=== PATIENT | female | born 1970 | race Caucasian/White ===

== ENCOUNTER 2021-03-24 12:33 | Inpatient (IN) ==
[2021-03-24] MEDS ORDERED: SODIUM CHLORIDE 0.9% 1000ML 1,000 ML IV ONE ×2 (13:07→14:31)
[2021-03-24] MEDS ORDERED: ACETAMINOPHEN 500 MG TAB PO STA (13:07)
[2021-03-24] MEDS ORDERED: dexAMETHasone**PF** 10 MG/ML VIAL IV ONE (13:07)
[2021-03-24] MEDS ORDERED: KETOROLAC TROMETHAMINE 15 MG/ML VIAL IV ONE (13:21)
--- NOTE | 2021-03-24 13:25 | Emergency Department Note ---
Impression & Plan Respiratory failure, COVID-19, Hypoxia ED Provider Note NAME: FREDERICK HARRIS AGE: 50 SEX: F : 1970 ARRIVES VIA: Ambulance INFORMANT: Patient ED PROVIDER(S): Richie Aguilera DO CHIEF COMPLAINT: cough HPI: Patient is a 50-year-old female who presents the ER for multiple complaints. She is Covid positive and notes that her symptoms started about 4 to 5 days ago. She notes she has cough and congestion. She does feel like she lost her sense of taste and smell. She is not vaccinated. She admits to persistent chest pain and shortness of breath which has been present since this started. No belly pain but does have nausea and diarrhea. No vomiting. No dysuria, urgency, or frequency. She denies being a smoker. No other exacerbating or remitting factors other than she has felt dizzy with movement for the past 2 to 3 days. No focal weakness in the arms or legs. ROS: See above HPI for pertinent positives & negatives. A total of 10 systems reviewed and were otherwise negative. PAST MEDICAL HISTORY:See Below PAST SURGICAL HISTORY:See Below FAMILY HISTORY:See Below SOCIAL HISTORY:See Below HOME MEDICATIONS:See Below ALLERGIES:See Below VITALS:See Below PHYSICAL EXAMINATION: GENERAL: Sitting up in bed, alert, slightly ill-appearing, disheveled on nasal cannula EYE EXAM: normal conjunctiva. PERRL and EOM's grossly intact. OROPHARYNX: Mask in place NECK: supple, no nuchal rigidity, no adenopathy, non-tender LUNGS: Diminished bilaterally. Normal chest wall mechanics HEART: no murmurs, S1 normal and S2 normal ABDOMEN: abdomen soft, non-tender, normo-active bowel sounds, no masses, no rebound or guarding. UPPER EXTREMITIES: upper extremities are grossly normal. LOWER EXTREMITIES: No pitting edema. NEURO EXAM: Normal sensorium, cranial nerves II-XII intact, normal speech, no weakness of arms, no weakness of legs. MEDICAL DECISION MAKING: Patient is a 50-year-old female who presents the ER for cough, chest congestion chest pain shortness of breath. She is vaccinated against Covid. Vitals show that she is febrile tacky and hypoxic at 83% on room air. She was initially placed on nasal cannula and then switched to high flow. IV was established blood was obtained. Labs show no significant leukocytosis. Mild anemia 10. BMP with a hypokalemia of 3.1. Creatinine was up to 1.7. Potassium was repl eted and patient was given IV fluids. Patient was given insulin and sugars trended down to 276. Bilirubin LFTs was unremarkable. Troponin was negative. Covid positive. Chest x-ray with multifocal infiltrate. Patient was updated bedside. She was given steroids. She was admitted to the hospitalist with hypoxic Covid pneumonia on high flow nasal cannula. Triage Nursing notes reviewed. Limited review of prior medical records performed Vital Signs: reviewed and remarkable for hypoxic and tachycardic Differential diagnosis: Differential diagnoses includes but is not limited to pneumonia, bronchitis, COPD/Asthma exacerbation, pneumothorax, pulmonary embolism, congestive heart failure, acute coronary syndrome ER treatment provided: See below Diagnostics interpreted by me: ECG: Sinus rhythm rate 83 PVCs QTC 418 Normal axis Cardiac Monitoring: An order was placed for continuous cardiac monitoring. The monitor shows a rate of 82 with sinus rhythm. Laboratory studies: As stated above and show below. Imaging studies: Chest x-ray with multifocal pneumonia CT head was negative Consultation(s): Discussed with hospitalist for further evaluation Procedures: none Critical Care: I have personally spent 39 minutes of critical care time in the direct management of this patient. This includes bedside care, interpretation of diagnostic studies, and testing, discussion with consultants, patient, and [facility] members, and other required patient management activities. This 39 minutes is in excess of all separately billable procedures. Past Med/Surg History Medical History (Updated 03/24/21 @ 17:07 by Richie Aguilera DO) DMII (diabetes mellitus, type 2) HLD (hyperlipidemia) Seizure Social History (Updated 03/24/21 @ 16:24 by APPLE Corona) Smoking Status: Never smoker Hx Alcohol Use: No Hx Substance Use: No Preferred Language: Syrian Current Living Situation: Spouse current occupational status: employed current occupation: [employer] Allergies Allergies Allergy/AdvReac Type Severity Reaction Status Date / Time phenytoin [From Dilantin] Allergy Unknown Verified 03/24/21 14:38 Home Meds Home Medications Medication Instructions Recorded Confirmed diazepam 2 mg tablet 2 mg PO QID PRN 03/24/21 03/24/21 glimepiride 1 mg tablet 1 mg PO DAILY 03/24/21 03/24/21 metformin 1,000 mg tablet 1,000 mg PO BID 03/24/21 03/24/21 simvastatin 20 mg tablet 20 mg PO HS 03/24/21 03/24/21 valproic acid 250 mg capsule 500 mg PO BID 03/24/21 03/24/21 Results & Data (ED) Vital Signs Vital Signs - 24 hr 03/24/21 12:40 03/24/21 12:47 03/24/21 12:51 Temperature 38.8 C H Temperature Source Oral Pulse Rate 87 93 H Pulse Rate [Apical] Pulse Rate from SpO2 Sensor 71 Pulse Rhythm Regular Pulse Strength Normal Respiratory Rate 36 H 20 Respiratory Effort / Characteristics Non-Labored Respiratory Depth Normal Respiratory Pattern Regular Blood Pressure 128/69 128/69 Blood Pressure Mean 88 88 Blood Pressure Position Lying Pulse Oximetry 95 88 L 88 L Oxygen Delivery Method Room Air Room Air Oxygen Flow Rate Fraction of Inspired Oxygen Sepsis Recent Fever Within 48 Hours No Sepsis New/Unexplained Change in Mental Status N/A Sepsis Action Taken by Nursing No Action Required Oxygen Flow Rate - Titration 2 Pulse Oximetry Post Tiitration 94 03/24/21 13:00 03/24/21 13:30 03/24/21 14:00 Temperature Temperature Source Pulse Rate 88 88 Pulse Rate [Apical] Pulse Rate from SpO2 Sensor 87 85 Pulse Rhythm Pulse Strength Respiratory Rate 36 H 43 H Respiratory Effort / Characteristics Respiratory Depth Respiratory Pattern Blood Pressure 112/72 128/65 114/69 Blood Pressure Mean 85 86 84 Blood Pressure Position Pulse Oximetry 92 91 Oxygen Delivery Method Oxygen Flow Rate Fraction of Inspired Oxygen Sepsis Recent Fever Within 48 Hours Sepsis New/Unexplained Change in Mental Status Sepsis Action Taken by Nursing Oxygen Flow Rate - Titration Pulse Oximetry Post Tiitration 03/24/21 14:18 03/24/21 14:30 Temperature Temperature Source Pulse Rate 80 Pulse Rate [Apical] 85 Pulse Rate from SpO2 Sensor 80 Pulse Rhythm Pulse Strength Respiratory Rate 24 34 H Respiratory Effort / Characteristics Spontaneous Respiratory Depth Respiratory Pattern Blood Pressure 103/59 L Blood Pressure Mean 73 Blood Pressure Position Pulse Oximetry 92 92 Oxygen Delivery Method High Flow Nasal Cannula Oxygen Flow Rate 25 Fraction of Inspired Oxygen 45 Sepsis Recent Fever Within 48 Hours Sepsis New/Unexplained Change in Mental Status Sepsis Action Taken by Nursing Oxygen Flow Rate - Titration Pulse Oximetry Post Tiitration Laboratory Data Result diagrams: 03/24/21 13:55 03/24/21 13:55 Lab Results 08/29/21 08/29/21 08/29/21 Range/Units 13:55 13:55 13:55 WBC 7.36 (4.8-10.8) K/uL RBC 4.12 L (4.2-5.4) M/uL Hgb 10.7 L (12.0-16.0) g/dL Hct 31.7 L (37-47) % MCV 76.9 L (80-100) fL MCH 26.0 (25-34) pg MCHC 33.8 (32-36) g/dL RDW Std Deviation 46.6 H (36.4-46.3) fL RDW Coeff of Willis 16.4 H (11.5-14.5) % Plt Count 299 (130-400) K/uL MPV 10.2 (7.4-10.4) fL Immature Gran % (Auto) 0.7 % Neut % (Auto) 85.0 % Lymph % (Auto) 10.9 % [place] % (Auto) 3.3 % Eos % (Auto) 0.0 % Baso % (Auto) 0.1 % Neut # (Auto) 6.26 (1.4-6.5) K/uL Lymph # (Auto) 0.80 L (1.2-3.4) K/uL [place] # (Auto) 0.24 (0.11-0.59) K/uL Eos # (Auto) 0.00 (0-0.5) K/uL Baso # (Auto) 0.01 (0-0.2) K/uL Immature Gran # (Auto) 0.05 H (0.00-0.02) K/uL APTT 34.1 H (21.0-31.0) Seconds PTT Ratio 1.3 Sodium 135 L (136-145) mmol/L Potassium 3.1 L (3.5-5.1) mmol/L Chloride 100 (98-107) mmol/L Carbon Dioxide 24 (21-32) mmol/L Anion Gap 11.0 (3-11) BUN 28 H (7-18) mg/dl Creatinine 1.72 H (0.6-1.2) mg/dl Est Cr Clr Drug Dosing 46.3 ml/min Est GFR ( Amer) 40.0 ml/min Est GFR (Non-Af Amer) 34.6 ml/min BUN/Creatinine Ratio 16.0 (10-20) Glucose 307 H* (70-99) mg/dl POC Glucose (70-99) mg/dl Calcium 8.6 (8.5-10.1) mg/dl Magnesium (1.8-2.4) mg/dl Total Bilirubin 0.3 (0.2-1) mg/dl AST 32 (15-37) U/L ALT 24 (12-78) U/L Alkaline Phosphatase 63 (45-117) U/L Troponin I < 0.015 (0-0.045) ng/ml Total Protein 8.0 (6.4-8.2) gm/dl Albumin 2.5 L (3.4-5.0) gm/dl Globulin 5.5 H (2.5-4.0) gm/dl Albumin/Globulin Ratio 0.5 L (0.9-2) Lipase 184 (73-393) U/L Beta-Hydroxybutyric Acd 2.06 (0.2-2.81) mg/dl COVID-19 Eval Order SARS-CoV-2 (PCR) (Negative) 03/24/21 03/24/21 03/24/21 Range/Units 13:55 13:58 13:58 WBC (4.8-10.8) K/uL RBC (4.2-5.4) M/uL Hgb (12.0-16.0) g/dL Hct (37-47) % MCV (80-100) fL MCH (25-34) pg MCHC (32-36) g/dL RDW Std Deviation (36.4-46.3) fL RDW Coeff of Willis (11.5-14.5) % Plt Count (130-400) K/uL MPV (7.4-10.4) fL Immature Gran % (Auto) % Neut % (Auto) % Lymph % (Auto) % [place] % (Auto) % Eos % (Auto) % Baso % (Auto) % Neut # (Auto) (1.4-6.5) K/uL Lymph # (Auto) (1.2-3.4) K/uL [place] # (Auto) (0.11-0.59) K/uL Eos # (Auto) (0-0.5) K/uL Baso # (Auto) (0-0.2) K/uL Immature Gran # (Auto) (0.00-0.02) K/uL APTT (21.0-31.0) Seconds PTT Ratio Sodium (136-145) mmol/L Potassium (3.5-5.1) mmol/L Chloride (98-107) mmol/L Carbon Dioxide (21-32) mmol/L Anion Gap (3-11) BUN (7-18) mg/dl Creatinine (0.6-1.2) mg/dl Est Cr Clr Drug Dosing ml/min Est GFR ( Amer) ml/min Est GFR (Non-Af Amer) ml/min BUN/Creatinine Ratio (10-20) Glucose (70-99) mg/dl POC Glucose (70-99) mg/dl Calcium (8.5-10.1) mg/dl Magnesium 2.0 (1.8-2.4) mg/dl Total Bilirubin (0.2-1) mg/dl AST (15-37) U/L ALT (12-78) U/L Alkaline Phosphatase (45-117) U/L Troponin I (0-0.045) ng/ml Total Protein (6.4-8.2) gm/dl Albumin (3.4-5.0) gm/dl Globulin (2.5-4.0) gm/dl Albumin/Globulin Ratio (0.9-2) Lipase (73-393) U/L Beta-Hydroxybutyric Acd (0.2-2.81) mg/dl COVID-19 Eval Order Covid19 at [facility] SARS-CoV-2 (PCR) POSITIVE A* (Negative) 03/24/21 Range/Units 14:41 WBC (4.8-10.8) K/uL RBC (4.2-5.4) M/uL Hgb (12.0-16.0) g/dL Hct (37-47) % MCV (80-100) fL MCH (25-34) pg MCHC (32-36) g/dL RDW Std Deviation (36.4-46.3) fL RDW Coeff of Willis (11.5-14.5) % Plt Count (130-400) K/uL MPV (7.4-10.4) fL Immature Gran % (Auto) % Neut % (Auto) % Lymph % (Auto) % [place] % (Auto) % Eos % (Auto) % Baso % (Auto) % Neut # (Auto) (1.4-6.5) K/uL Lymph # (Auto) (1.2-3.4) K/uL [place] # (Auto) (0.11-0.59) K/uL Eos # (Auto) (0-0.5) K/uL Baso # (Auto) (0-0.2) K/uL Immature Gran # (Auto) (0.00-0.02) K/uL APTT (21.0-31.0) Seconds PTT Ratio Sodium (136-145) mmol/L Potassium (3.5-5.1) mmol/L Chloride (98-107) mmol/L Carbon Dioxide (21-32) mmol/L Anion Gap (3-11) BUN (7-18) mg/dl Creatinine (0.6-1.2) mg/dl Est Cr Clr Drug Dosing ml/min Est GFR ( Amer) ml/min Est GFR (Non-Af Amer) ml/min BUN/Creatinine Ratio (10-20) Glucose (70-99) mg/dl POC Glucose 335 H* (70-99) mg/dl Calcium (8.5-10.1) mg/dl Magnesium (1.8-2.4) mg/dl Total Bilirubin (0.2-1) mg/dl AST (15-37) U/L ALT (12-78) U/L Alkaline Phosphatase (45-117) U/L Troponin I (0-0.045) ng/ml Total Protein (6.4-8.2) gm/dl Albumin (3.4-5.0) gm/dl Globulin (2.5-4.0) gm/dl Albumin/Globulin Ratio (0.9-2) Lipase (73-393) U/L Beta-Hydroxybutyric Acd (0.2-2.81) mg/dl COVID-19 Eval Order SARS-CoV-2 (PCR) (Negative) Administered Medications Discontinued Medications Acetaminophen (Acetaminophen 500 Mg Tab) 1,000 mg PO NOW STA Stop: 03/24/21 13:08 Last Admin: 03/24/21 13:58 Dose: 1,000 mg Documented by: [id number] Dexamethasone Sodium Phosphate (DexamethasonePf 10 Mg/Ml Vial) 10 mg IV NOW ONE Stop: 03/24/21 13:08 Last Admin: 03/24/21 13:58 Dose: 10 mg Documented by: [id number] Sodium Chloride (Nss 1000ml) 1,000 mls @ 999 mls/hr IV .Q1H1M ONE Stop: 03/24/21 14:07 Last Infusion: 03/24/21 15:03 Dose: 0 mls/hr Documented by: [id number] Admin: 03/24/21 13:58 Dose: 999 mls/hr Documented by: [id number] Potassium Chloride (K Javier / Wtr) 10 meq in 100 mls @ 100 mls/hr IV Q1H FIGUEROA Stop: 03/24/21 16:44 Last Infusion: 03/24/21 16:54 Dose: 0 mls/hr Documented by: [id number] Admin: 03/24/21 15:39 Dose: 100 mls/hr Documented by: [id number] Infusion: 03/24/21 15:38 Dose: 0 mls/hr Documented by: [id number] Infusion: 03/24/21 15:38 Dose: 0 mls/hr Documented by: [id number] Admin: 03/24/21 14:44 Dose: 100 mls/hr Documented by: [id number] Sodium Chloride (Nss 1000ml) 1,000 mls @ 999 mls/hr IV .Q1H1M ONE Stop: 03/24/21 15:31 Last Infusion: 03/24/21 15:43 Dose: 0 mls/hr Documented by: [id number] Admin: 03/24/21 14:44 Dose: 999 mls/hr Documented by: [id number] Insulin Human Regular (Novolin-R Insulin Per Unit Charge) 4 units IV NOW STA Stop: 03/24/21 14:58 Last Admin: 03/24/21 16:06 Dose: 4 units Documented by: [id number] Cosigned by: [id number] Ketorolac Tromethamine (Ketorolac Tromethamine 15 Mg/Ml Vial) 15 mg IV NOW ONE Stop: 03/24/21 13:22 Last Admin: 03/24/21 13:58 Dose: 15 mg Documented by: [id number] Imaging Data Radiologist's Impression: Chest X-Ray 03/24/21 13:07 XR chest 1V portable HISTORY: Atypical Chest Pain COMPARISON: None. FINDINGS: Patchy bilateral airspace opacities within the mid to lower lung zones consistent with a viral pneumonia. No pneumothorax. No pleural effusions. The heart is normal in size. IMPRESSION: Patchy bilateral airspace opacities consistent with a viral pneumonia. ACT 112: Negative or not required by law. Electronically signed by: Nickolas Padilla M.D. 03/24/2021 3:[address] 03/24/21 13:[address] DOSE: 537.48 mGy.cm HISTORY: dizzy TECHNIQUE: Multiaxial CT images of the head were performed without the use of intravenous contrast. Automated exposure control was utilized for this study. A dose lowering technique was utilized adhering to the principles of ALARA. Comparison: None. Findings: Small fluid levels within the maxillary sinuses. The mastoid air cells are clear. The calvarium and skull base are intact. The ventricles and sulci are within normal limits. There is no mass, hematoma, midline shift, or acute infarct. Impression: No acute intracranial abnormality. Mild acute maxillary sinusitis. ACT 112: Negative or not required by law. Electronically signed by: Nickolas Padilla M.D. 03/24/2021 2:44 PM Discharge Plan Visit Data Chief Complaint: Shortness of Breath/Dyspnea ED Provider: Richie Aguilera Discharge Problem: Respiratory failure, COVID-19, Hypoxia
[2021-03-24 14:04] LABS: Basophils # (auto) 0.01 K/uL (0-0.2); Basophils % (auto) 0.1 %; Hematocrit (blood only) 31.7 % (37-47); Hemoglobin 10.7 g/dL (12.0-16.0); Immature Granulocytes # (auto) 0.05 K/uL (0.00-0.02); Immature Granulocytes % (auto) 0.7 %; Lymphocytes % (auto) 10.9 %; Mean Corpuscular Hgb Conc 33.8 g/dL (32-36); Mean Corpuscular Volume 76.9 fL (80-100); Mean Platelet Volume 10.2 fL (7.4-10.4); Monocytes # (auto) 0.24 K/uL (0.11-0.59); Monocytes % (auto) 3.3 %; Neutrophils # (auto) 6.26 K/uL (1.4-6.5); Platelet Count 299 K/uL (130-400); RDW Coefficient of Variation 16.4 % (11.5-14.5); RDW Standard Deviation 46.6 fL (36.4-46.3); Red Blood Count 4.12 M/uL (4.2-5.4); White Blood Count 7.36 K/uL (4.8-10.8)
[2021-03-24 14:13] LABS: Partial Thromboplastin Ratio 1.3; Partial Thromboplastin Time 34.1 Seconds (21.0-31.0)
[2021-03-24 14:26] LABS: Alanine Aminotransferase 24 U/L (12-78); Albumin Globulin Ratio 0.5 (0.9-2); Albumin Level 2.5 gm/dl (3.4-5.0); Alkaline Phosphatase 63 U/L (45-117); Aspartate Aminotransferase 32 U/L (15-37); Bilirubin,Total 0.3 mg/dl (0.2-1); Blood Urea Nitrogen 28 mg/dl (7-18); Calcium 8.6 mg/dl (8.5-10.1); Carbon Dioxide 24 mmol/L (21-32); Chloride 100 mmol/L (98-107); Creatinine Clr Calc Pharmacy 46.3 ml/min; Est GFR (Non-African American) 34.6 ml/min; Globulin 5.5 gm/dl (2.5-4.0); Glucose 307 mg/dl (70-99); Lipase 184 U/L (73-393); Potassium 3.1 mmol/L (3.5-5.1); Sodium 135 mmol/L (136-145); Troponin I < 0.015 ng/ml (0-0.045)
[2021-03-24 14:37] LABS: Beta-Hydroxybutyrate 2.06 mg/dl (0.2-2.81)
[2021-03-24] MEDS: POTASSIUM CHLORIDE / WTR 10 MEQ/100 ML PLCT IV SCH ×2 (14:44→15:39)
--- NOTE | 2021-03-24 14:45 | CT Scan Report ---
HEAD CT NONCONTRAST CT DOSE: 537.48 mGy.cm HISTORY: dizzy TECHNIQUE: Multiaxial CT images of the head were performed without the use of intravenous contrast. A utomated exposure control was utilized for this study. A dose lowering technique was utilized adheri ng to the principles of ALARA. Comparison: None. Findings: Small fluid levels within the maxillary sinuses. The mastoid air cells are clear. The cameron rium and skull base are intact. The ventricles and sulci are within normal limits. There is no mass, hematoma, midline shift, or acute infarct. Impression: No acute intracranial abnormality. Mild acute maxillary sinusitis. ACT 112: Negative or not required by law. Electronically signed by: Nickolas Padilla M.D. 03/24/2021 2:44 PM
[2021-03-24] MEDS ORDERED: NovoLIN-R INSULIN PER UNIT CHARGE IV STA (14:57)
--- NOTE | 2021-03-24 15:13 | XRay Report ---
XR chest 1V portable HISTORY: Atypical Chest Pain COMPARISON: None. FINDINGS: Patchy bilateral airspace opacities within the mid to lower lung zones consistent with a vi ral pneumonia. No pneumothorax. No pleural effusions. The heart is normal in size. IMPRESSION: Patchy bilateral airspace opacities consistent with a viral pneumonia. ACT 112: Negative or not required by law. Electronically signed by: Nickolas Padilla M.D. 03/24/2021 3:11 PM
[2021-03-24] MEDS ORDERED: AZITHROMYCIN 250 MG TAB PO ONE ×2 (16:09→17:15)
--- NOTE | 2021-03-24 16:09 | History & Physical Report ---
Date of Service March 24, 2021 Assessment & Plan (1) COVID-19: Plan: Unvaccinated ~day 10 of infection on admission - Azithromycin for underlying bacterial cause - Remdisivir protocol - maintain Spo2 >92%, NC, HFNC, CPAP/BIPAP - BiPAP at night to prevent de-recruitment - ICS while awake - Albuterol nebs scheduled q6 - self proning and rotation therapy every 2 hours for minimum 20 min each side but up to 2 hours at a time - Decadron 10mg IV daily- unable to offer Toczilizumab secondary to supply. - CRP, PCT, ESR- pending - Fibrinogen, Ferritin, LDH pending - Lovenox 40mg SUB q BID (2) Hypoxia: Plan: As above (3) Seizure: Plan: Continue Valproic acid -seizure precautions (4) HLD (hyperlipidemia): Plan: Not on medicine at home - diet controll (5) DMII (diabetes mellitus, type 2): Plan: Hold Metformin and glimepride - Aspart sliding scale for now- CF 20 with 1:15 carb ratio - pending on increase with steroids may need basal dosing - Goal <180 History of Present Illness Primary Care Provider: NO PCP 50 YOF with past medical history of: DMII, HTN, HLD, Seizures (on valproic acid). Patient comes in today for complaints of nausea, vomitting, and increase in fever and dyspnea. The patient is COVID positive and is not vaccinated. She feels that she contracted the virus at work as many of her co-workers are sick. She states that she has not been feeling well for ~10 days, initially felt ok following the first few days of fevers, body aches, and diarrhea. Then got pr ogressively worse in the last 2-3 days with increase in dyspnea and cough. In the EMD the patient had routine labs drawn, COVID test and CXR. She was hypoxic at 88% on room air and was placed on HFNC to maintain SPO2 >90%, she is currently on 25L of flow with FIo2 45%. Patient will be admitted for continual respiratory support and supportive care for her COVID 19 pneumonia. Inflammatory markers including CRP and PCT are pending. We did discuss treatment options for supportive care in regards to proning and self rotation. The patient wishes to be a DNR and DNI. Allergies Allergy/AdvReac Type Severity Reaction Status Date / Time phenytoin [From Dilantin] Allergy Unknown Verified 03/24/21 14:38 Home Medications Medication Instructions Recorded Confirmed Type diazepam 2 mg tablet 2 mg PO QID PRN 03/24/21 03/24/21 History glimepiride 1 mg tablet 1 mg PO DAILY 03/24/21 03/24/21 History metformin 1,000 mg tablet 1,000 mg PO BID 03/24/21 03/24/21 History simvastatin 20 mg tablet 20 mg PO HS 03/24/21 03/24/21 History valproic acid 250 mg capsule 500 mg PO BID 03/24/21 03/24/21 History Past Med/Surg History Medical History (Updated 03/24/21 @ 17:07 by Richie Aguilera DO) DMII (diabetes mellitus, type 2) HLD (hyperlipidemia) Seizure Social History (Updated 03/24/21 @ 16:24 by APPLE Corona) Smoking Status: Former smoker Hx Alcohol Use: Yes Alcohol type: beer Hx Substance Use: No Preferred Language: Kyrgyz Communication Ability: Effective Beliefs That Will Affect Care: None Current Living Situation: Spouse current occupational status: employed current occupation: [employer] Other Information That Helps Us Care for You: No Feels Safe at Home: Yes Safety Concerns: Feels Safe At This Time Assistive Devices: Glasses Review of Systems Review of Systems: REVIEW OF SYSTEMS: Constitutional: (+) fever, sweats or chills Eyes: No diplopia, no worsening or blurred vision ENT: normal hearing, no trouble swallowing Respiratory: (+) cough, sputum, dyspnea at rest or on exertion Cardiovascular: No chest pain, tightness or palpitations Abdomen: (+) nausea, vomiting, diarrhea, No pain, or constipation Musculoskeletal: (+) joint pain, calf pain, swelling Neurologic: No weakness, numbness/tingling, or balance problems Psychiatric: No anxiety or depression Skin: No rash or itch Physical Exam Physical Exam: PHYSICAL EXAM: General: awake, fatigued appearing Head: Normocephalic, atraumatic ENT: PERRL, EOMI, no pharyngeal exudate, mucous membranes moist Neuro: AAO x 3, speech clear and appropriate, strength intact bilaterally 5/5, sensation intact and equal all extremities and dermatomes, no pronator drift Chest: equal rise and fall of the chest, using accessory muscles, diminished in the bases with scattered ronchi throughout and expiratory wheeze, on HFNC, Cardiac: Regular rate and rhythm, telemetry reviewed-NSR, skin warm dry, cap refill <3 seconds, peripheral pulses +2 no JVD, no murmur, no JVD, no edema GI: NABS x 4 quadrants, soft, nontender to palpation, no rebound, guarding or tenderness : Spontaneously voiding, no pain, no CVA tenderness, Extremities: Normal inspection, no peripheral edema or erythema, calfs nontender to palpation Psych: Normal mood and affect Skin: no rash or erythema Results & Data Results & Data ([facility]) Vital Signs (Past 12 Hours) Vital Signs Temp Pulse Pulse Resp BP Pulse Ox 03/24/21 14:30 80 34 H 103/59 L 92 03/24/21 14:18 85 24 92 03/24/21 14:00 114/69 03/24/21 13:30 88 43 H 128/65 91 03/24/21 13:00 88 36 H 112/72 92 03/24/21 12:51 88 L 03/24/21 12:47 38.8 C H 93 H 20 128/69 88 L 03/24/21 12:40 87 36 H 128/69 95 Laboratory Results Abnormal lab results 03/24/21 03/24/21 03/24/21 Range/Units 13:55 13:55 13:55 RBC 4.12 L (4.2-5.4) M/uL Hgb 10.7 L (12.0-16.0) g/dL Hct 31.7 L (37-47) % MCV 76.9 L (80-100) fL RDW Std Deviation 46.6 H (36.4-46.3) fL RDW Coeff of Willis 16.4 H (11.5-14.5) % Lymph # (Auto) 0.80 L (1.2-3.4) K/uL Immature Gran # (Auto) 0.05 H (0.00-0.02) K/uL APTT 34.1 H (21.0-31.0) Seconds Sodium 135 L (136-145) mmol/L Potassium 3.1 L (3.5-5.1) mmol/L BUN 28 H (7-18) mg/dl Creatinine 1.72 H (0.6-1.2) mg/dl Glucose 307 H* (70-99) mg/dl POC Glucose (70-99) mg/dl Albumin 2.5 L (3.4-5.0) gm/dl Globulin 5.5 H (2.5-4.0) gm/dl Albumin/Globulin Ratio 0.5 L (0.9-2) SARS-CoV-2 (PCR) (Negative) 03/24/21 03/24/21 Range/Units 13:58 14:41 RBC (4.2-5.4) M/uL Hgb (12.0-16.0) g/dL Hct (37-47) % MCV (80-100) fL RDW Std Deviation (36.4-46.3) fL RDW Coeff of Willis (11.5-14.5) % Lymph # (Auto) (1.2-3.4) K/uL Immature Gran # (Auto) (0.00-0.02) K/uL APTT (21.0-31.0) Seconds Sodium (136-145) mmol/L Potassium (3.5-5.1) mmol/L BUN (7-18) mg/dl Creatinine (0.6-1.2) mg/dl Glucose (70-99) mg/dl POC Glucose 335 H* (70-99) mg/dl Albumin (3.4-5.0) gm/dl Globulin (2.5-4.0) gm/dl Albumin/Globulin Ratio (0.9-2) SARS-CoV-2 (PCR) POSITIVE A* (Negative) Diagnostic Findings Chest X-Ray 03/24/21 13:07 XR chest 1V portable HISTORY: Atypical Chest Pain COMPARISON: None. FINDINGS: Patchy bilateral airspace opacities within the mid to lower lung zones consistent with a viral pneumonia. No pneumothorax. No pleural effusions. The heart is normal in size. IMPRESSION: Patchy bilateral airspace opacities consistent with a viral pneumonia. ACT 112: Negative or not required by law. Electronically signed by: Nickolas Padilla M.D. 03/24/2021 3:[address] 03/24/21 13:[address] DOSE: 537.48 mGy.cm HISTORY: dizzy TECHNIQUE: Multiaxial CT images of the head were performed without the use of intravenous contrast. Automated exposure control was utilized for this study. A dose lowering technique was utilized adhering to the principles of ALARA. Comparison: None. Findings: Small fluid levels within the maxillary sinuses. The mastoid air cells are clear. The calvarium and skull base are intact. The ventricles and sulci are within normal limits. There is no mass, hematoma, midline shift, or acute infarct. Impression: No acute intracranial abnormality. Mild acute maxillary sinusitis. ACT 112: Negative or not required by law. Electronically signed by: Nickolas Padilla M.D. 03/24/2021 2:44 PM Medications Administered Home Medications diazepam 2 mg tablet 2 mg PO QID PRN 03/24/21 [History Confirmed 03/24/21] glimepiride 1 mg tablet 1 mg PO DAILY 03/24/21 [History Confirmed 03/24/21] metformin 1,000 mg tablet 1,000 mg PO BID 03/24/21 [History Confirmed 03/24/21] simvastatin 20 mg tablet 20 mg PO HS 03/24/21 [History Confirmed 03/24/21] valproic acid 250 mg capsule 500 mg PO BID 03/24/21 [History Confirmed 03/24/21] Active Medications Potassium Chloride (K Javier / Wtr) 10 meq in 100 mls @ 100 mls/hr IV Q1H FIGUEROA Stop: 03/24/21 16:44 Last Admin: 03/24/21 15:39 Dose: 100 mls/hr Documented by: Remdesivir 200 mg/ Sodium (Chloride) 250 mls @ 125 mls/hr IV ONE STA; Protocol Stop: 03/24/21 18:09 Potassium Chloride (K Javier / Wtr) 10 meq in 100 mls @ 100 mls/hr IV Q1H FIGUEROA Stop: 03/24/21 16:44 Last Admin: 03/24/21 15:39 Dose: 100 mls/hr Documented by: [id number] Infusion: 03/24/21 15:38 Dose: 0 mls/hr Documented by: [id number] Infusion: 03/24/21 15:38 Dose: 0 mls/hr Documented by: [id number] Admin: 03/24/21 14:44 Dose: 100 mls/hr Documented by: [id number] Discontinued Medications Acetaminophen (Acetaminophen 500 Mg Tab) 1,000 mg PO NOW STA Stop: 03/24/21 13:08 Last Admin: 03/24/21 13:58 Dose: 1,000 mg Documented by: [id number] Dexamethasone Sodium Phosphate (DexamethasonePf 10 Mg/Ml Vial) 10 mg IV NOW ONE Stop: 03/24/21 13:08 Last Admin: 03/24/21 13:58 Dose: 10 mg Documented by: [id number] Sodium Chloride (Nss 1000ml) 1,000 mls @ 999 mls/hr IV .Q1H1M ONE Stop: 03/24/21 14:07 Last Infusion: 03/24/21 15:03 Dose: 0 mls/hr Documented by: [id number] Admin: 03/24/21 13:58 Dose: 999 mls/hr Documented by: [id number] Sodium Chloride (Nss 1000ml) 1,000 mls @ 999 mls/hr IV .Q1H1M ONE Stop: 03/24/21 15:31 Last Infusion: 03/24/21 15:43 Dose: 0 mls/hr Documented by: [id number] Admin: 03/24/21 14:44 Dose: 999 mls/hr Documented by: [id number] Insulin Human Regular (Novolin-R Insulin Per Unit Charge) 4 units IV NOW STA Stop: 03/24/21 14:58 Last Admin: 03/24/21 16:06 Dose: 4 units Documented by: [id number] Cosigned by: [id number] Ketorolac Tromethamine (Ketorolac Tromethamine 15 Mg/Ml Vial) 15 mg IV NOW ONE Stop: 03/24/21 13:22 Last Admin: 03/24/21 13:58 Dose: 15 mg Documented by: [id number] ECG Additional Comments: Sinus rhythm with Premature supraventricular complexes Nonspecific ST abnormality Abnormal ECG No previous ECGs availabl Code Status & VTE Plan Code Status CODE: DNR/DNI VTE: SCD's, Lovenox 40 mg Sq BID VTE Prophylaxis Plan VTE Prophylaxis will be ordered: Yes Supervising Physician Co-Signing Physician Notes I have seen and agree with the above PG Care Time/CCT Total # of Minutes Spent Total Time Spent with Patient: Total time spent is greater than 50% in coordination of care (as documented) at patient's floor/unit and/or counseling patient: Coding Level of Care Code 84439 Initial Inpt Care Lvl 3 Diagnoses COVID-19 U07.1 Seizure R56.9 HLD (hyperlipidemia) E78.5 DMII (diabetes mellitus, type 2) E11.9 Hypoxia R09.02
[2021-03-24] MEDS ORDERED: REMDESIVIR 200 MG in SODIUM CHLORIDE 0.9% 210 ML IV STA (16:10)
[2021-03-24] MEDS ORDERED: diazePAM 2 MG TABLET PO PRN (16:51)
[2021-03-24] MEDS ORDERED: ONDANSETRON INJ 2 MG/ML 2 ML VIAL IV PRN (16:51)
[2021-03-24] MEDS ORDERED: POLYETHYLENE (MIRALAX) 17 GM PACK PO PRN (16:51)
[2021-03-24] MEDS ORDERED: GLUCOSE 10 TABS/TUBE PO PRN (16:51)
[2021-03-24] MEDS ORDERED: ENOXAPARIN INJ 40 MG/0.4 ML SYR SQ SCH (16:51)
[2021-03-24] MEDS ORDERED: GLUCOSE 40% GEL 15 GM TUBE PO PRN (16:51)
[2021-03-24] MEDS ORDERED: DEXTROSE 50% 50 ML SYRINGE IV PRN (16:51)
[2021-03-24] MEDS ORDERED: GLUCAGON FOR INJ 1 MG VIAL SQ PRN (16:51)
[2021-03-24 16:59] LABS: C Reactive Protein 16.9 mg/dl (0-0.29)
[2021-03-24 17:10] LABS: Ferritin 222.3 ng/ml (8-388)
[2021-03-24 17:35] LABS: Fibrinogen 672 mg/dl (184-400)
[2021-03-24 17:58] LABS: Prothrombin Time 10.2 Seconds (9.0-12.0)
[2021-03-24] MEDS: INSULIN ASPART 100 UNITS/ML 3 ML PEN SC SCH ×2 (18:06→20:23)
[2021-03-24] MEDS: ENOXAPARIN INJ 40 MG/0.4 ML SYR SQ SCH (20:26)
[2021-03-24] MEDS: SIMVASTATIN 20 MG TAB PO SCH (20:26)
[2021-03-24] MEDS: DIVALPROEX DELAY RELEASE 500 MG TAB PO SCH (20:26)
[2021-03-24] MEDS: ALBUTEROL 0.5% NEB SOLN 2.5 MG/0.5 ML VIAL NEB SCH (20:35)
[2021-03-25] MEDS: ALBUTEROL 0.5% NEB SOLN 2.5 MG/0.5 ML VIAL NEB SCH ×4 (01:16→19:15)
--- NOTE | 2021-03-25 06:20 | Electrocardiogram Report ---
Test Reason : Blood Pressure : / mmHG Vent. Rate : 083 BPM Atrial Rate : 083 BPM P-R Int : 152 ms QRS Dur : 094 ms QT Int : 356 ms P-R-T Axes : 037 071 000 degrees QTc Int : 418 ms Sinus rhythm with Premature ventricular complexes No previous ECGs available Confirmed by Prateek Ashton ([id number]) on 03/25/2021 6:19:53 AM Referred By: REFERRED SELF Confirmed By:Prateek Ashton
[2021-03-25 07:02] LABS: Basophils # (auto) 0.01 K/uL (0-0.2); Basophils % (auto) 0.1 %; Hematocrit (blood only) 31.4 % (37-47); Hemoglobin 10.4 g/dL (12.0-16.0); Immature Granulocytes # (auto) 0.05 K/uL (0.00-0.02); Immature Granulocytes % (auto) 0.6 %; Lymphocytes # (auto) 1.23 K/uL (1.2-3.4); Lymphocytes % (auto) 14.5 %; Mean Corpuscular Hemoglobin 25.9 pg (25-34); Mean Corpuscular Hgb Conc 33.1 g/dL (32-36); Mean Corpuscular Volume 78.3 fL (80-100); Mean Platelet Volume 10.3 fL (7.4-10.4); Monocytes # (auto) 0.25 K/uL (0.11-0.59); Monocytes % (auto) 2.9 %; Neutrophils # (auto) 6.95 K/uL (1.4-6.5); Neutrophils % (auto) 81.9 %; Platelet Count 338 K/uL (130-400); RDW Coefficient of Variation 16.9 % (11.5-14.5); RDW Standard Deviation 48.6 fL (36.4-46.3); Red Blood Count 4.01 M/uL (4.2-5.4); White Blood Count 8.49 K/uL (4.8-10.8)
[2021-03-25 07:39] LABS: Alanine Aminotransferase 22 U/L (12-78); Albumin Level 2.1 gm/dl (3.4-5.0); Alkaline Phosphatase 56 U/L (45-117); Aspartate Aminotransferase 29 U/L (15-37); BUN Creatinine Ratio 25.7 (10-20); Bilirubin Direct < 0.1 mg/dl (0-0.2); Bilirubin,Total 0.3 mg/dl (0.2-1); Blood Urea Nitrogen 36 mg/dl (7-18); Calcium 8.7 mg/dl (8.5-10.1); Carbon Dioxide 20 mmol/L (21-32); Chloride 107 mmol/L (98-107); Creatinine Clr Calc Pharmacy 57.3 ml/min; Est GFR (African American) 50.9 ml/min; Est GFR (Non-African American) 43.9 ml/min; Glucose 370 mg/dl (70-99); Magnesium 2.2 mg/dl (1.8-2.4); Potassium 4.1 mmol/L (3.5-5.1); Sodium 133 mmol/L (136-145); Total Protein 7.5 gm/dl (6.4-8.2)
[2021-03-25 07:50] LABS: Beta-Hydroxybutyrate 2.37 mg/dl (0.2-2.81)
[2021-03-25] MEDS ORDERED: PHARMACY GLYCEMIC MGMT CONSULT PRN (07:50)
[2021-03-25] MEDS: INSULIN ASPART 100 UNITS/ML 3 ML PEN SC SCH ×4 (08:00→21:33)
[2021-03-25] MEDS: DIVALPROEX DELAY RELEASE 500 MG TAB PO SCH ×2 (08:06→20:30)
[2021-03-25] MEDS: ENOXAPARIN INJ 40 MG/0.4 ML SYR SQ SCH ×2 (08:07→20:30)
[2021-03-25] MEDS: AZITHROMYCIN 250 MG TAB PO SCH (08:07)
[2021-03-25] MEDS: dexAMETHasone 10 MG in SYRINGE 0 ML IV SCH (08:27)
[2021-03-25] MEDS ORDERED: POTASSIUM CHLORIDE CRTAB 20 MEQ TABCR PO STA (08:36)
[2021-03-25] MEDS ORDERED: INSULIN HUMAN REGULAR PER UNIT 6 UNITS in SYRINGE 5.94 ML IV ONE (09:00)
[2021-03-25] MEDS ORDERED: ENOXAPARIN INJ 40 MG/0.4 ML SYR SQ SCH (09:00)
[2021-03-25] MEDS ORDERED: INSULIN HUMAN NPH SC SCH (09:00)
--- NOTE | 2021-03-25 10:25 | Hospitalist Progress Note ---
Date of Service March 25, 2021 Assessment & Plan (1) COVID-19: Plan: Unvaccinated ~day 10 of infection on admission evidence of pneumonia, hypoxia, also with diarrhea, DIONE on admission continue dexamethasone 10mg IV daily, day 2 today Remdesivir x 5 days, day 2 today Zithromax 250mg daily x 5 days, day 2 no fever, Cr improved, stable on 25L and 40% FiO2 with saturations 91-94% encouraged her to lay prone, use BIPAP at night, she is compliant encouraged her to eat what she can, be patient, treat diarrhea with imodium - Lovenox 40mg SUB q BID noted that BNP was elevated on admission, consider Lasix 20mg IV tomorrow (2) Hypoxia: Plan: stable on 25L and 40%, titrate down as tolerated prone positioning as often as tolerated BIPAP HS for now as long as she is compliant due to COVID 19 pneumonia consider Lasix tomorrow (3) Seizure: Plan: Continue Valproic acid -seizure precautions, no issues thus far (4) HLD (hyperlipidemia): Plan: Not on medicine at home - diet controll (5) DMII (diabetes mellitus, type 2): Plan: Hold Metformin and glimepride - hyperglycemic today, sugars 350-400 consulted pharmacy this morning, added NPH, basal and Novolog scal monitor closely (6) DIONE (acute kidney injury): Plan: Cr improved to 1.4 from 1.7, no further IV fluids, encourage PO intake check BMP in AM (7) Dehydration: Plan: given IV fluids in the ED, no further fluids (8) Diarrhea: Plan: Imodium PRN Admission and Anticipated Discharge Date Admission Date: March 24, 2021 Subjective patient admitted yesterday, did well with BIPAP last night, this morning on 25L and 40% FiO2 reviewed chart labs this morning: Cr down to 1.4 from 1.7, WBC normal sugars really elevated, > 300 consistently, asked pharmacy to help with insulin, added NPH, she told RN that sugars high at home all the time CRP was 16 yesterday, BNP was also very high patient confirms she has been sick for about a week, maybe 10 days, diarrhea the past week, poor appetite feels short of breath but not in distress, occasional cough, no sputum production, no fever she got short of breath ambulating to toilet but recovered very quickly Review of Systems Review of Systems: All systems reviewed & are unremarkable except as noted in Subjective Respiratory: + cough, + dyspnea and + dyspnea on exertion; no chest congestion, no pain with cough and no sputum production Cardiovascular: no chest pain and no edema Gastrointestinal: + early satiety and + diarrhea/loose stools; no abdominal pain, no nausea, no vomiting and no constipation Physical Exam Constitutional: well developed, + ill appearing and comfortable; no acute distress Neck: trachea midline, no thyromegaly Respiratory: + cough and + tachypneic; no respiratory distress, no labored breathing and does not use accessory muscles Auscultation: + rales (bases); no crackles, no rhonchi and no wheezes Cardiovascular: RRR, no murmur, no edema Gastrointestinal (Abdomen): normal bowel sounds, soft, nontender, no hepatosplenomegaly Musculoskeletal: no cyanosis or clubbing, extremities motor strength 5/5 Skin: no rashes, warm and dry Neurologic: CN's II-XI intact bilaterally, normal sensation to monofilament, moves all extremities and awake; no focal motor deficits Psychiatric: Orientation: alert and oriented x 3 Affect: + flat affect Results & Data Results & Data ([facility]) Vital Signs (Past 12 Hours) Vital Signs Temp Pulse Pulse Pulse Resp BP BP 03/25/21 08:12 58 L 20 03/25/21 07:36 36.7 C 60 25 H 110/61 03/25/21 03:39 60 25 H 03/25/21 03:00 36.6 C 67 16 96/74 L 03/25/21 01:22 53 L 23 03/25/21 01:17 53 L 22 03/24/21 23:00 36.9 C 55 L 17 101/61 Pulse Ox 03/25/21 08:12 94 03/25/21 07:36 92 03/25/21 03:39 98 03/25/21 03:00 94 03/25/21 01:22 98 03/25/21 01:17 98 03/24/21 23:00 91 Laboratory Results Laboratory Results - last 24 hr 03/24/21 03/24/21 03/24/21 13:55 13:55 13:55 WBC 7.36 RBC 4.12 L Hgb 10.7 L Hct 31.7 L MCV 76.9 L MCH 26.0 MCHC 33.8 RDW Std Deviation 46.6 H RDW Coeff of Willis 16.4 H Plt Count 299 MPV 10.2 Immature Gran % (Auto) 0.7 Neut % (Auto) 85.0 Lymph % (Auto) 10.9 [place] % (Auto) 3.3 Eos % (Auto) 0.0 Baso % (Auto) 0.1 Neut # (Auto) 6.26 Lymph # (Auto) 0.80 L [place] # (Auto) 0.24 Eos # (Auto) 0.00 Baso # (Auto) 0.01 Immature Gran # (Auto) 0.05 H ESR PT 10.2 INR 1.0 APTT 34.1 H PTT Ratio 1.3 Fibrinogen Sodium 135 L Potassium 3.1 L Chloride 100 Carbon Dioxide 24 Anion Gap 11.0 BUN 28 H Creatinine 1.72 H Est Cr Clr Drug Dosing 46.3 Est GFR ( Amer) 40.0 Est GFR (Non-Af Amer) 34.6 BUN/Creatinine Ratio 16.0 Glucose 307 H* POC Glucose Calcium 8.6 Magnesium Ferritin Total Bilirubin 0.3 Direct Bilirubin AST 32 ALT 24 Alkaline Phosphatase 63 Lactate Dehydrogenase Troponin I < 0.015 C-Reactive Protein NT-Pro-B Natriuret Pep Total Protein 8.0 Albumin 2.5 L Globulin 5.5 H Albumin/Globulin Ratio 0.5 L Lipase 184 Beta-Hydroxybutyric Acd 2.06 Procalcitonin COVID-19 Eval Order SARS-CoV-2 (PCR) 03/24/21 03/24/21 03/24/21 13:55 13:58 13:58 WBC RBC Hgb Hct MCV MCH MCHC RDW Std Deviation RDW Coeff of Willis Plt Count MPV Immature Gran % (Auto) Neut % (Auto) Lymph % (Auto) [place] % (Auto) Eos % (Auto) Baso % (Auto) Neut # (Auto) Lymph # (Auto) [place] # (Auto) Eos # (Auto) Baso # (Auto) Immature Gran # (Auto) ESR PT INR APTT PTT Ratio Fibrinogen Sodium Potassium Chloride Carbon Dioxide Anion Gap BUN Creatinine Est Cr Clr Drug Dosing Est GFR ( Amer) Est GFR (Non-Af Amer) BUN/Creatinine Ratio Glucose POC Glucose Calcium Magnesium 2.0 Ferritin Total Bilirubin Direct Bilirubin AST ALT Alkaline Phosphatase Lactate Dehydrogenase Troponin I C-Reactive Protein NT-Pro-B Natriuret Pep Total Protein Albumin Globulin Albumin/Globulin Ratio Lipase Beta-Hydroxybutyric Acd Procalcitonin COVID-19 Eval Order Covid19 at [facility] SARS-CoV-2 (PCR) POSITIVE A* 03/24/21 03/24/21 03/24/21 14:41 16:29 16:29 WBC RBC Hgb Hct MCV MCH MCHC RDW Std Deviation RDW Coeff of Willis Plt Count MPV Immature Gran % (Auto) Neut % (Auto) Lymph % (Auto) [place] % (Auto) Eos % (Auto) Baso % (Auto) Neut # (Auto) Lymph # (Auto) [place] # (Auto) Eos # (Auto) Baso # (Auto) Immature Gran # (Auto) ESR 98 H PT INR APTT PTT Ratio Fibrinogen 672 H Sodium Potassium Chloride Carbon Dioxide Anion Gap BUN Creatinine Est Cr Clr Drug Dosing Est GFR ( Amer) Est GFR (Non-Af Amer) BUN/Creatinine Ratio Glucose POC Glucose 335 H* Calcium Magnesium Ferritin Total Bilirubin Direct Bilirubin AST ALT Alkaline Phosphatase Lactate Dehydrogenase Troponin I C-Reactive Protein NT-Pro-B Natriuret Pep Total Protein Albumin Globulin Albumin/Globulin Ratio Lipase Beta-Hydroxybutyric Acd Procalcitonin COVID-19 Eval Order SARS-CoV-2 (PCR) 03/24/21 03/24/21 03/24/21 16:29 16:29 16:29 WBC RBC Hgb Hct MCV MCH MCHC RDW Std Deviation RDW Coeff of Willis Plt Count MPV Immature Gran % (Auto) Neut % (Auto) Lymph % (Auto) [place] % (Auto) Eos % (Auto) Baso % (Auto) Neut # (Auto) Lymph # (Auto) [place] # (Auto) Eos # (Auto) Baso # (Auto) Immature Gran # (Auto) ESR PT INR APTT PTT Ratio Fibrinogen Sodium Potassium Chloride Carbon Dioxide Anion Gap BUN Creatinine Est Cr Clr Drug Dosing Est GFR ( Amer) Est GFR (Non-Af Amer) BUN/Creatinine Ratio Glucose POC Glucose Calcium Magnesium Ferritin 222.3 Total Bilirubin Direct Bilirubin AST ALT Alkaline Phosphatase Lactate Dehydrogenase 458 H Troponin I C-Reactive Protein 16.90 H NT-Pro-B Natriuret Pep 1523 H Total Protein Albumin Globulin Albumin/Globulin Ratio Lipase Beta-Hydroxybutyric Acd Procalcitonin 3.21 H COVID-19 Eval Order SARS-CoV-2 (PCR) 03/24/21 03/24/21 03/24/21 16:53 20:12 20:14 WBC RBC Hgb Hct MCV MCH MCHC RDW Std Deviation RDW Coeff of Willis Plt Count MPV Immature Gran % (Auto) Neut % (Auto) Lymph % (Auto) [place] % (Auto) Eos % (Auto) Baso % (Auto) Neut # (Auto) Lymph # (Auto) [place] # (Auto) Eos # (Auto) Baso # (Auto) Immature Gran # (Auto) ESR PT INR APTT PTT Ratio Fibrinogen Sodium Potassium Chloride Carbon Dioxide Anion Gap BUN Creatinine Est Cr Clr Drug Dosing Est GFR ( Amer) Est GFR (Non-Af Amer) BUN/Creatinine Ratio Glucose POC Glucose 276 H 357 H* 353 H* Calcium Magnesium Ferritin Total Bilirubin Direct Bilirubin AST ALT Alkaline Phosphatase Lactate Dehydrogenase Troponin I C-Reactive Protein NT-Pro-B Natriuret Pep Total Protein Albumin Globulin Albumin/Globulin Ratio Lipase Beta-Hydroxybutyric Acd Procalcitonin COVID-19 Eval Order SARS-CoV-2 (PCR) 03/25/21 03/25/21 03/25/21 06:21 06:21 07:33 WBC 8.49 RBC 4.01 L Hgb 10.4 L Hct 31.4 L MCV 78.3 L MCH 25.9 MCHC 33.1 RDW Std Deviation 48.6 H RDW Coeff of Willis 16.9 H Plt Count 338 MPV 10.3 Immature Gran % (Auto) 0.6 Neut % (Auto) 81.9 Lymph % (Auto) 14.5 [place] % (Auto) 2.9 Eos % (Auto) 0.0 Baso % (Auto) 0.1 Neut # (Auto) 6.95 H Lymph # (Auto) 1.23 [place] # (Auto) 0.25 Eos # (Auto) 0.00 Baso # (Auto) 0.01 Immature Gran # (Auto) 0.05 H ESR PT INR APTT PTT Ratio Fibrinogen Sodium 133 L Potassium 4.1 D Chloride 107 Carbon Dioxide 20 L Anion Gap 6.0 BUN 36 H Creatinine 1.41 H D Est Cr Clr Drug Dosing 57.3 Est GFR ( Amer) 50.9 Est GFR (Non-Af Amer) 43.9 BUN/Creatinine Ratio 25.7 H Glucose 370 H* POC Glucose 400 H* Calcium 8.7 Magnesium 2.2 Ferritin Total Bilirubin 0.3 Direct Bilirubin < 0.1 AST 29 ALT 22 Alkaline Phosphatase 56 Lactate Dehydrogenase Troponin I C-Reactive Protein NT-Pro-B Natriuret Pep Total Protein 7.5 Albumin 2.1 L Globulin Albumin/Globulin Ratio Lipase Beta-Hydroxybutyric Acd 2.37 Procalcitonin COVID-19 Eval Order SARS-CoV-2 (PCR) 03/25/21 07:33 WBC RBC Hgb Hct MCV MCH MCHC RDW Std Deviation RDW Coeff of Willis Plt Count MPV Immature Gran % (Auto) Neut % (Auto) Lymph % (Auto) [place] % (Auto) Eos % (Auto) Baso % (Auto) Neut # (Auto) Lymph # (Auto) [place] # (Auto) Eos # (Auto) Baso # (Auto) Immature Gran # (Auto) ESR PT INR APTT PTT Ratio Fibrinogen Sodium Potassium Chloride Carbon Dioxide Anion Gap BUN Creatinine Est Cr Clr Drug Dosing Est GFR ( Amer) Est GFR (Non-Af Amer) BUN/Creatinine Ratio Glucose POC Glucose 369 H* Calcium Magnesium Ferritin Total Bilirubin Direct Bilirubin AST ALT Alkaline Phosphatase Lactate Dehydrogenase Troponin I C-Reactive Protein NT-Pro-B Natriuret Pep Total Protein Albumin Globulin Albumin/Globulin Ratio Lipase Beta-Hydroxybutyric Acd Procalcitonin COVID-19 Eval Order SARS-CoV-2 (PCR) Medications Administered Current Inpatient Medications Acetaminophen (Acetaminophen 325 Mg Tab) 650 mg PO Q4H PRN PRN Reason: Pain or Fever Stop: 04/23/21 16:50 Albuterol (Albuterol 0.5% Neb Soln 2.5 Mg/0.5 Ml Vial) 2.5 mg NEB Q6R FIGUEROA Stop: 04/23/21 18:59 Last Admin: 03/25/21 08:12 Dose: 2.5 mg Documented by: Azithromycin (Azithromycin 250 Mg Tab) 250 mg PO QAM FIGUEROA Stop: 04/01/21 08:59 Last Admin: 03/25/21 08:07 Dose: 250 mg Documented by: Dextrose (Dextrose 50% 50 Ml Syringe) 25 - 50 ml IV UD PRN; Protocol PRN Reason: Hypoglycemia Protocol Stop: 04/23/21 16:50 Diazepam (Diazepam 2 Mg Tablet) 2 mg PO QID PRN PRN Reason: Muscle Spasm Stop: 04/23/21 16:50 Divalproex Sodium (Divalproex Delay Release 500 Mg Tab) 500 mg PO BID FIGUEROA Stop: 04/23/21 20:59 Last Admin: 03/25/21 08:06 Dose: 500 mg Documented by: Enoxaparin Sodium (Enoxaparin Inj 40 Mg/0.4 Ml Syr) 40 mg SQ Q12H FIGUEROA Stop: 04/23/21 20:59 Last Admin: 03/25/21 08:07 Dose: 40 mg Documented by: Glucagon (Glucagon For Inj 1 Mg Vial) 1 mg SQ UD PRN; Protocol PRN Reason: Hypoglycemia Protocol Stop: 04/23/21 16:50 Glucose (Glucose 10 Tabs/Tube) 4 - 8 tabs PO UD PRN; Protocol PRN Reason: Hypoglycemia Protocol Stop: 04/23/21 16:50 Glucose (Glucose 40% Gel 15 Gm Tube) 15 - 30 gm PO UD PRN; Protocol PRN Reason: Hypoglycemia Protocol Stop: 04/23/21 16:50 Remdesivir 100 mg/ Sodium (Chloride) 250 mls @ 250 mls/hr IV Q24H FIGUEROA; Protocol Stop: 03/28/21 12:59 Dexamethasone 10 mg/ Syringe 2.5 mls @ 1 mls/min IV DAILY FIGUEROA Stop: 04/04/21 08:59 Last Admin: 03/25/21 08:27 Dose: 1 mls/min Documented by: Insulin Aspart (Insulin Aspart 100 Units/Ml 3 Ml Pen) 0 units SC ACHS [facility] Stop: 04/23/21 16:50 Last Admin: 03/25/21 08:00 Dose: 19 units Documented by: Insulin Human NPH (Insulin Human Nph) 35 units SC QAM FIGUEROA Stop: 04/24/21 08:59 Last Admin: 03/25/21 09:08 Dose: 35 units Documented by: Miscellaneous (Carbohydrates For Hypoglycemia ) 15 - 30 gm PO UD PRN PRN Reason: Hypoglycemia Protocol Stop: 04/23/21 16:50 Miscellaneous Information (Pharmacy Glycemic Mgmt Consult) 1 ea N/A UD PRN PRN Reason: Consult Stop: 04/24/21 07:49 Ondansetron HCl (Ondansetron Inj 2 Mg/Ml 2 Ml Vial) 4 mg IV Q6H PRN PRN Reason: Nausea Stop: 04/23/21 16:50 Polyethylene Glycol (Polyethylene (Miralax) 17 Gm Pack) 17 gm PO DAILY PRN PRN Reason: Constipation Stop: 04/23/21 16:50 Simvastatin (Simvastatin 20 Mg Tab) 20 mg PO HS FIGUEROA Stop: 04/23/21 20:59 Last Admin: 03/24/21 20:26 Dose: 20 mg Documented by: Sodium Chloride (Sodium Chloride 0.9% 10ml Flush) 30 ml IV Q24H FIGUEROA Stop: 03/28/21 12:01 PG Care Time/CCT Total # of Minutes Spent Total Time Spent with Patient: Total time spent is greater than 50% in coordination of care (as documented) at patient's floor/unit and/or counseling patient: Coding Level of Care Code 42931 Subseq Hosp Care Lvl 3 Diagnoses COVID-19 U07.1 Hypoxia R09.02 Seizure R56.9 HLD (hyperlipidemia) E78.5 DMII (diabetes mellitus, type 2) E11.9 DIONE (acute kidney injury) N17.9 Dehydration E86.0 Diarrhea R19.7
[2021-03-25] MEDS ORDERED: INSULIN GLARGINE SOLOSTAR 100 UNITS/ML 3 ML PEN SC STA (11:43)
[2021-03-25] MEDS: REMDESIVIR 100 MG in SODIUM CHLORIDE 0.9% 230 ML IV SCH (12:42)
[2021-03-25] MEDS: SODIUM CHLORIDE 0.9% 10ML FLUSH IV SCH (13:47)
--- NOTE | 2021-03-25 14:01 | Pharmacy Report ---
Pharmacy Glycemic Short Note 2 - Date of Service March 25, 2021 - Glycemic Short BSG Results (Last 24 hours): 03/24/21 03/24/21 03/24/21 13:55 14:41 16:53 Glucose 307 H* POC Glucose 335 H* 276 H 03/24/21 03/24/21 03/25/21 20:12 20:14 06:21 Glucose 370 H* POC Glucose 357 H* 353 H* 03/25/21 03/25/21 03/25/21 07:33 07:33 11:28 Glucose POC Glucose 400 H* 369 H* 348 H* 03/25/21 11:28 Glucose POC Glucose 353 H* OUTPATIENT ANTIDIABETIC REGIMEN: * Glimepiride 1mg PO daily * Metformin 1000mg PO BID * A1C: pending ASSESSMENT: * Patient hyperglycemic upon admission and BSGs only uptrended after the addition of IV dexamethasone. Upon consultation this morning a 0.4 unit/kg NPH and a 6 units IV insulin bolus were ordered in addition to tightening novolog scale. BSG remained over 300 at lunchtime despite this. Novolog was then changed to a full severe stress scale and lantus dose was ordered. An evening lantus scale and overnight novolog checks also added. * Will continue to monitor BSG trends, if BSG remains significantly elevated at dinner time, would consider initiation of an insulin infusion. Patient remains on IV dex and is tolerating a diet. PLAN FOR INPATIENT GLYCEMIC CONTROL: * Hold outpatient oral diabetes medications * Basal insulin * MPH 35 units qam * Lantus 20 units SQ X 1 at lunchtime * 0,10,15 units SQ HS per scale (See MAR for details) * Bolus insulin * NovoLog per scale ACHS or Q6hrs while NPO * Goal Range: Low 110 mg/dL - High 140 mg/dL * Correction Factor: 15 mg/dL/unit * Nutritional / Prandial insulin per carb ratio of 1 unit per 6 grams CHO consumed PLAN FOR DISCHARGE: * TBD
[2021-03-25] MEDS ORDERED: INSULIN ASPART 100 UNITS/ML 3 ML PEN SC ONE (19:00)
[2021-03-25] MEDS ORDERED: STAT IV Infusion **Titration per Protocol STA (19:36)
[2021-03-25] MEDS ORDERED: INSULIN PROTOCOL GOAL RANGE ONE (19:36)
[2021-03-25] MEDS ORDERED: INSULIN HUMAN REGULAR IV BOLUS 3.5 UNITS in SYRINGE 0 ML IV ONE (19:45)
[2021-03-25] MEDS: INSULIN REGULAR 250 UNITS in SODIUM CHLORIDE 0.9% 247.5 ML IV SCH (20:22)
[2021-03-25] MEDS: SIMVASTATIN 20 MG TAB PO SCH (20:30)
[2021-03-25] MEDS ORDERED: INSULIN GLARGINE SOLOSTAR 100 UNITS/ML 3 ML PEN SC ONE (21:00)
[2021-03-26] MEDS ORDERED: INSULIN ASPART 100 UNITS/ML 3 ML PEN SC SCH
[2021-03-26] MEDS: ALBUTEROL 0.5% NEB SOLN 2.5 MG/0.5 ML VIAL NEB SCH ×4 (00:21→19:18)
[2021-03-26 06:23] LABS: Hemoglobin 9.6 g/dL (12.0-16.0); Mean Corpuscular Hemoglobin 25.3 pg (25-34); Mean Corpuscular Hgb Conc 33.1 g/dL (32-36); Mean Corpuscular Volume 76.5 fL (80-100); Mean Platelet Volume 9.8 fL (7.4-10.4); Platelet Count 452 K/uL (130-400); RDW Standard Deviation 48.2 fL (36.4-46.3); Red Blood Count 3.79 M/uL (4.2-5.4); White Blood Count 12.02 K/uL (4.8-10.8)
[2021-03-26 06:58] LABS: Basophils # (auto) 0.03 K/uL (0-0.2); Basophils % (auto) 0.2 %; Immature Granulocytes # (auto) 0.09 K/uL (0.00-0.02); Immature Granulocytes % (auto) 0.7 %; Lymphocytes # (auto) 1.28 K/uL (1.2-3.4); Lymphocytes % (auto) 10.6 %; Monocytes # (auto) 0.44 K/uL (0.11-0.59); Monocytes % (auto) 3.7 %; Neutrophils # (auto) 10.18 K/uL (1.4-6.5); Neutrophils % (auto) 84.8 %
[2021-03-26 06:59] LABS: Alanine Aminotransferase 23 U/L (12-78); Aspartate Aminotransferase 25 U/L (15-37); BUN Creatinine Ratio 26.8 (10-20); Bilirubin Direct < 0.1 mg/dl (0-0.2); Blood Urea Nitrogen 30 mg/dl (7-18); C Reactive Protein 9.77 mg/dl (0-0.29); Calcium 8.8 mg/dl (8.5-10.1); Carbon Dioxide 24 mmol/L (21-32); Chloride 110 mmol/L (98-107); Creatinine Clr Calc Pharmacy 70.9 ml/min; Est GFR (African American) 67.3 ml/min; Glucose 140 mg/dl (70-99); Magnesium 1.8 mg/dl (1.8-2.4); Potassium 3.5 mmol/L (3.5-5.1); Sodium 141 mmol/L (136-145)
[2021-03-26 07:05] LABS: Alkaline Phosphatase 54 U/L (45-117); Bilirubin,Total 0.2 mg/dl (0.2-1)
[2021-03-26 08:19] LABS: Estimated Average Glucose 232 mg/dl; Hemoglobin A1C 9.7 % (4.5-5.6)
[2021-03-26] MEDS: INSULIN ASPART 100 UNITS/ML 3 ML PEN SC SCH ×4 (08:36→21:08)
[2021-03-26] MEDS: INSULIN HUMAN NPH SC SCH (08:40)
[2021-03-26] MEDS ORDERED: INSULIN HUMAN NPH SC SCH (09:00)
[2021-03-26] MEDS ORDERED: DC IV INSULIN INFUSION 1 EA DEVI SCH (09:00)
[2021-03-26] MEDS ORDERED: INSULIN GLARGINE SOLOSTAR 100 UNITS/ML 3 ML PEN SC SCH ×2 (09:00→17:00)
--- NOTE | 2021-03-26 09:03 | Hospitalist Progress Note ---
Date of Service March 26, 2021 Assessment & Plan (1) COVID-19: Plan: Unvaccinated ~day 10 of infection on admission evidence of pneumonia, hypoxia, also with diarrhea, DIONE on admission continue dexamethasone 10mg IV daily, day 3 today Remdesivir x 5 days, day 3 today Zithromax 250mg daily x 5 days, day 3 no fever, Cr improved, oxygen requirements up a lot to 40L and 100% but she is doing well in prone position use BIPAP at night, she is compliant encouraged her to eat what she can, be patient, treat diarrhea with imodium - Lovenox 40mg SUB q BID give Lasix 20mg IV today to try for negative net balance, keep lungs dry place allen so she does not have to get up frequently as that will cause desaturations (2) Acute respiratory failure with hypoxia: Plan: 30L and 45%, titrate down as tolerated prone positioning as often as tolerated BIPAP HS for now as long as she is compliant due to COVID 19 pneumonia Lasix today, 20mg IV (3) Bacterial pneumonia: Plan: possible bacterial pneumonia continue Zithromax for atypical coverage, 5 days total (4) Seizure: Plan: Continue Valproic acid -seizure precautions, no issues thus far (5) HLD (hyperlipidemia): Plan: Not on medicine at home - diet controll (6) DMII (diabetes mellitus, type 2): Plan: Hold Metformin and glimepride - hyperglycemic on 03/25 sugars 350-400 consulted pharmacy, added NPH, basal and Novolog scal sugars much better, stable now, continue to monitor closely (7) DIONE (acute kidney injury): Plan: Cr improved to 1.1, electrolytes stable will actually give a dose of Lasix today, promote negative fluid balance check BMP in AM (8) Dehydration: Plan: given IV fluids in the ED, no further fluids (9) Diarrhea: Plan: Imodium PRN Admission and Anticipated Discharge Date Admission Date: March 24, 2021 Subjective patient is requiring 40L and 100%, not in distress, laying prone reviewed labs will place a allen and give Lasix 20mg IV since her Cr is down to 1.1 she tried to eat but due to desaturations they had her lay prone no diarrhea, no fever, minimal cough, still a very flat affect Review of Systems Review of Systems: All systems reviewed & are unremarkable except as noted in Subjective Constitutional: + fatigue and + weakness; no fever Respiratory: + cough, + dyspnea and + dyspnea on exertion Cardiovascular: no chest pain and no edema Gastrointestinal: no abdominal pain, no nausea, no vomiting, no constipation and no diarrhea/loose stools Physical Exam Constitutional: well developed, + ill appearing and comfortable; no acute distress Neck: trachea midline, no thyromegaly Respiratory: + cough and + tachypneic; no respiratory distress, no labored breathing and does not use accessory muscles Auscultation: + rales (bases); no crackles, no rhonchi and no wheezes Cardiovascular: RRR, no murmur, no edema Gastrointestinal (Abdomen): normal bowel sounds, soft, nontender, no hepatosplenomegaly Musculoskeletal: no cyanosis or clubbing, extremities motor strength 5/5 Skin: no rashes, warm and dry Neurologic: CN's II-XI intact bilaterally, normal sensation to monofilament, moves all extremities and awake; no focal motor deficits Psychiatric: Orientation: alert and oriented x 3 Affect: + flat affect Results & Data Results & Data ([facility]) Vital Signs (Past 12 Hours) Vital Signs Temp Pulse Pulse Resp BP Pulse Ox 03/26/21 07:34 62 20 94 03/26/21 07:30 36.7 C 57 L 20 125/84 98 03/26/21 07:24 51 L 61 23 98 03/26/21 03:46 36.6 C 50 L 18 121/63 98 03/26/21 03:15 47 L 24 93 03/26/21 00:25 54 L 26 H 93 03/26/21 00:24 54 L 24 93 03/25/21 23:00 60 03/25/21 22:38 37.0 C 63 18 115/65 96 Laboratory Results Laboratory Results - last 24 hr 03/25/21 03/25/21 03/25/21 11:28 11:28 16:24 WBC RBC Hgb Hct MCV MCH MCHC RDW Std Deviation RDW Coeff of Willis Plt Count MPV Immature Gran % (Auto) Neut % (Auto) Lymph % (Auto) [place] % (Auto) Eos % (Auto) Baso % (Auto) Neut # (Auto) Lymph # (Auto) [place] # (Auto) Eos # (Auto) Baso # (Auto) Immature Gran # (Auto) Sodium Potassium Chloride Carbon Dioxide Anion Gap BUN Creatinine Est Cr Clr Drug Dosing Est GFR ( Amer) Est GFR (Non-Af Amer) BUN/Creatinine Ratio Glucose POC Glucose 348 H* 353 H* 356 H* Estimat Average Glucose Hemoglobin A1c Calcium Magnesium Total Bilirubin Direct Bilirubin AST ALT Alkaline Phosphatase C-Reactive Protein Total Protein Albumin 03/25/21 03/25/21 03/25/21 16:25 19:11 19:13 WBC RBC Hgb Hct MCV MCH MCHC RDW Std Deviation RDW Coeff of Willis Plt Count MPV Immature Gran % (Auto) Neut % (Auto) Lymph % (Auto) [place] % (Auto) Eos % (Auto) Baso % (Auto) Neut # (Auto) Lymph # (Auto) [place] # (Auto) Eos # (Auto) Baso # (Auto) Immature Gran # (Auto) Sodium Potassium Chloride Carbon Dioxide Anion Gap BUN Creatinine Est Cr Clr Drug Dosing Est GFR ( Amer) Est GFR (Non-Af Amer) BUN/Creatinine Ratio Glucose POC Glucose 358 H* 347 H* 401 H* Estimat Average Glucose Hemoglobin A1c Calcium Magnesium Total Bilirubin Direct Bilirubin AST ALT Alkaline Phosphatase C-Reactive Protein Total Protein Albumin 03/25/21 03/25/21 03/25/21 20:20 21:31 22:35 WBC RBC Hgb Hct MCV MCH MCHC RDW Std Deviation RDW Coeff of Willis Plt Count MPV Immature Gran % (Auto) Neut % (Auto) Lymph % (Auto) [place] % (Auto) Eos % (Auto) Baso % (Auto) Neut # (Auto) Lymph # (Auto) [place] # (Auto) Eos # (Auto) Baso # (Auto) Immature Gran # (Auto) Sodium Potassium Chloride Carbon Dioxide Anion Gap BUN Creatinine Est Cr Clr Drug Dosing Est GFR ( Amer) Est GFR (Non-Af Amer) BUN/Creatinine Ratio Glucose POC Glucose 353 H* 280 H 267 H Estimat Average Glucose Hemoglobin A1c Calcium Magnesium Total Bilirubin Direct Bilirubin AST ALT Alkaline Phosphatase C-Reactive Protein Total Protein Albumin 03/25/21 03/26/21 03/26/21 23:36 00:32 01:34 WBC RBC Hgb Hct MCV MCH MCHC RDW Std Deviation RDW Coeff of Willis Plt Count MPV Immature Gran % (Auto) Neut % (Auto) Lymph % (Auto) [place] % (Auto) Eos % (Auto) Baso % (Auto) Neut # (Auto) Lymph # (Auto) [place] # (Auto) Eos # (Auto) Baso # (Auto) Immature Gran # (Auto) Sodium Potassium Chloride Carbon Dioxide Anion Gap BUN Creatinine Est Cr Clr Drug Dosing Est GFR ( Amer) Est GFR (Non-Af Amer) BUN/Creatinine Ratio Glucose POC Glucose 203 H 207 H 237 H Estimat Average Glucose Hemoglobin A1c Calcium Magnesium Total Bilirubin Direct Bilirubin AST ALT Alkaline Phosphatase C-Reactive Protein Total Protein Albumin 03/26/21 03/26/21 03/26/21 02:28 03:30 04:34 WBC RBC Hgb Hct MCV MCH MCHC RDW Std Deviation RDW Coeff of Willis Plt Count MPV Immature Gran % (Auto) Neut % (Auto) Lymph % (Auto) [place] % (Auto) Eos % (Auto) Baso % (Auto) Neut # (Auto) Lymph # (Auto) [place] # (Auto) Eos # (Auto) Baso # (Auto) Immature Gran # (Auto) Sodium Potassium Chloride Carbon Dioxide Anion Gap BUN Creatinine Est Cr Clr Drug Dosing Est GFR ( Amer) Est GFR (Non-Af Amer) BUN/Creatinine Ratio Glucose POC Glucose 199 H 168 H 165 H Estimat Average Glucose Hemoglobin A1c Calcium Magnesium Total Bilirubin Direct Bilirubin AST ALT Alkaline Phosphatase C-Reactive Protein Total Protein Albumin 03/26/21 03/26/21 03/26/21 05:32 05:59 05:59 WBC 12.02 H RBC 3.79 L Hgb 9.6 L Hct 29.0 L MCV 76.5 L MCH 25.3 MCHC 33.1 RDW Std Deviation 48.2 H RDW Coeff of Willis 17.0 H Plt Count 452 H MPV 9.8 Immature Gran % (Auto) 0.7 Neut % (Auto) 84.8 Lymph % (Auto) 10.6 Charlotte % (Auto) 3.7 Eos % (Auto) 0.0 Baso % (Auto) 0.2 Neut # (Auto) 10.18 H Lymph # (Auto) 1.28 Charlotte # (Auto) 0.44 Eos # (Auto) 0.00 Baso # (Auto) 0.03 Immature Gran # (Auto) 0.09 H Sodium Potassium Chloride Carbon Dioxide Anion Gap BUN Creatinine Est Cr Clr Drug Dosing Est GFR ( Amer) Est GFR (Non-Af Amer) BUN/Creatinine Ratio Glucose POC Glucose 142 H Estimat Average Glucose 232 Hemoglobin A1c 9.7 H Calcium Magnesium Total Bilirubin Direct Bilirubin AST ALT Alkaline Phosphatase C-Reactive Protein Total Protein Albumin 03/26/21 03/26/21 03/26/21 05:59 06:31 08:31 WBC RBC Hgb Hct MCV MCH MCHC RDW Std Deviation RDW Coeff of Willis Plt Count MPV Immature Gran % (Auto) Neut % (Auto) Lymph % (Auto) [place] % (Auto) Eos % (Auto) Baso % (Auto) Neut # (Auto) Lymph # (Auto) [place] # (Auto) Eos # (Auto) Baso # (Auto) Immature Gran # (Auto) Sodium 141 D Potassium 3.5 Chloride 110 H Carbon Dioxide 24 Anion Gap 7.0 BUN 30 H Creatinine 1.12 Est Cr Clr Drug Dosing 70.9 Est GFR ( Amer) 67.3 Est GFR (Non-Af Amer) 58.0 BUN/Creatinine Ratio 26.8 H Glucose 140 H POC Glucose 134 H 129 H Estimat Average Glucose Hemoglobin A1c Calcium 8.8 Magnesium 1.8 Total Bilirubin 0.2 Direct Bilirubin < 0.1 AST 25 ALT 23 Alkaline Phosphatase 54 C-Reactive Protein 9.77 H Total Protein 7.0 Albumin 2.0 L Medications Administered Current Inpatient Medications Acetaminophen (Acetaminophen 325 Mg Tab) 650 mg PO Q4H PRN PRN Reason: Pain or Fever Stop: 04/23/21 16:50 Albuterol (Albuterol 0.5% Neb Soln 2.5 Mg/0.5 Ml Vial) 2.5 mg NEB Q6R REPLACED BY [facility] Stop: 04/23/21 18:59 Last Admin: 03/26/21 07:24 Dose: 2.5 mg Documented by: Azithromycin (Azithromycin 250 Mg Tab) 250 mg PO QAM FIGUEROA Stop: 04/01/21 08:59 Last Admin: 03/25/21 08:07 Dose: 250 mg Documented by: Dextrose (Dextrose 50% 50 Ml Syringe) 25 - 50 ml IV UD PRN; Protocol PRN Reason: Hypoglycemia Protocol Stop: 04/23/21 16:50 Diazepam (Diazepam 2 Mg Tablet) 2 mg PO QID PRN PRN Reason: Muscle Spasm Stop: 04/23/21 16:50 Divalproex Sodium (Divalproex Delay Release 500 Mg Tab) 500 mg PO BID REPLACED BY [facility] Stop: 04/23/21 20:59 Last Admin: 03/25/21 20:30 Dose: 500 mg Documented by: Enoxaparin Sodium (Enoxaparin Inj 40 Mg/0.4 Ml Syr) 40 mg SQ Q12H FIGUEROA Stop: 04/23/21 20:59 Last Admin: 03/25/21 20:30 Dose: 40 mg Documented by: Glucagon (Glucagon For Inj 1 Mg Vial) 1 mg SQ UD PRN; Protocol PRN Reason: Hypoglycemia Protocol Stop: 04/23/21 16:50 Glucose (Glucose 10 Tabs/Tube) 4 - 8 tabs PO UD PRN; Protocol PRN Reason: Hypoglycemia Protocol Stop: 04/23/21 16:50 Glucose (Glucose 40% Gel 15 Gm Tube) 15 - 30 gm PO UD PRN; Protocol PRN Reason: Hypoglycemia Protocol Stop: 04/23/21 16:50 Remdesivir 100 mg/ Sodium (Chloride) 250 mls @ 250 mls/hr IV Q24H FIGUEROA; Protocol Stop: 03/28/21 12:59 Last Infusion: 03/25/21 13:47 Dose: Infused Documented by: Dexamethasone 10 mg/ Syringe 2.5 mls @ 1 mls/min IV DAILY FIGUEROA Stop: 04/04/21 08:59 Last Admin: 03/25/21 08:27 Dose: 1 mls/min Documented by: Insulin Human Regular 250 (units/ Sodium Chloride) 250 mls @ 3.3 mls/hr IV .Q24H FIGUEROA; Protocol Stop: 04/24/21 19:44 Last Titration: 03/26/21 08:32 Dose: 3.3 units/hr, 3.3 mls/hr Documented by: Insulin Aspart (Insulin Aspart 100 Units/Ml 3 Ml Pen) 0 units SC ACHS REPLACED BY [facility] Stop: 04/24/21 20:59 Last Admin: 03/26/21 08:36 Dose: Not Given Documented by: Insulin Human NPH (Insulin Human Nph) 40 units SC QAM REPLACED BY [facility] Stop: 04/25/21 08:59 Last Admin: 03/26/21 08:40 Dose: 40 units Documented by: Miscellaneous (Carbohydrates For Hypoglycemia ) 15 - 30 gm PO UD PRN PRN Reason: Hypoglycemia Protocol Stop: 04/23/21 16:50 Miscellaneous Information (Pharmacy Glycemic Mgmt Consult) 1 ea N/A UD PRN PRN Reason: Consult Stop: 04/24/21 07:49 Miscellaneous Information (Dc Iv Insulin Infusion 1 Ea Angelina) 1 ea N/A TODAY@0900 REPLACED BY [facility] Stop: 03/26/21 15:00 Ondansetron HCl (Ondansetron Inj 2 Mg/Ml 2 Ml Vial) 4 mg IV Q6H PRN PRN Reason: Nausea Stop: 04/23/21 16:50 Polyethylene Glycol (Polyethylene (Miralax) 17 Gm Pack) 17 gm PO DAILY PRN PRN Reason: Constipation Stop: 04/23/21 16:50 Simvastatin (Simvastatin 20 Mg Tab) 20 mg PO HS FIGUEROA Stop: 04/23/21 20:59 Last Admin: 03/25/21 20:30 Dose: 20 mg Documented by: Sodium Chloride (Sodium Chloride 0.9% 10ml Flush) 30 ml IV Q24H FIGUEROA Stop: 03/28/21 12:01 Last Admin: 03/25/21 13:47 Dose: 30 ml Documented by: PG Care Time/CCT Total # of Minutes Spent Total Time Spent with Patient: Total time spent is greater than 50% in coordination of care (as documented) at patient's floor/unit and/or counseling patient: Coding Level of Care Code 47199 Subseq Hosp Care Lvl 3 Diagnoses COVID-19 U07.1 Seizure R56.9 HLD (hyperlipidemia) E78.5 DMII (diabetes mellitus, type 2) E11.9 DIONE (acute kidney injury) N17.9 Dehydration E86.0 Diarrhea R19.7 Acute respiratory failure with hypoxia J96.01 Bacterial pneumonia J15.9
[2021-03-26] MEDS: ENOXAPARIN INJ 40 MG/0.4 ML SYR SQ SCH ×2 (09:30→20:04)
[2021-03-26] MEDS: AZITHROMYCIN 250 MG TAB PO SCH (09:30)
[2021-03-26] MEDS: dexAMETHasone 10 MG in SYRINGE 0 ML IV SCH (09:30)
[2021-03-26] MEDS: DIVALPROEX DELAY RELEASE 500 MG TAB PO SCH ×2 (09:31→20:04)
[2021-03-26] MEDS ORDERED: FUROSEMIDE 20 MG in SYRINGE 0 ML IV ONE ×2 (09:45→16:30)
[2021-03-26] MEDS: REMDESIVIR 100 MG in SODIUM CHLORIDE 0.9% 230 ML IV SCH (13:46)
--- NOTE | 2021-03-26 14:58 | Pharmacy Report ---
Pharmacy Glycemic Short Note 2 - Date of Service March 26, 2021 - Glycemic Short BSG Results (Last 24 hours): 03/25/21 03/25/21 03/25/21 16:24 16:25 19:11 Glucose POC Glucose 356 H* 358 H* 347 H* 03/25/21 03/25/21 03/25/21 19:13 20:20 21:31 Glucose POC Glucose 401 H* 353 H* 280 H 03/25/21 03/25/21 03/26/21 22:35 23:36 00:32 Glucose POC Glucose 267 H 203 H 207 H 03/26/21 03/26/21 03/26/21 01:34 02:28 03:30 Glucose POC Glucose 237 H 199 H 168 H 03/26/21 03/26/21 03/26/21 04:34 05:32 05:59 Glucose 140 H POC Glucose 165 H 142 H 03/26/21 03/26/21 03/26/21 06:31 08:31 10:36 Glucose POC Glucose 134 H 129 H 110 H 03/26/21 12:17 Glucose POC Glucose 138 H OUTPATIENT ANTIDIABETIC REGIMEN: * Glimepiride 1mg PO daily * Metformin 1000mg PO BID * A1C: 9.7% ASSESSMENT: 03/26: * Patient did require an insulin infusion yesterday for persistent hyperglycemia. BSGs downtrended nicely this morning and an attempt was made to transition off of the infusion. Despite high stress Lantus/ NovoLog and 0.45 unit/kg NPH, the insulin infusion rate remains at 3.3 units/hr X 6 hours post SQ basal insulin. will order another dose of Lantus at dinner and continue infusion, with hope of possibly transitioning off later this evening. After speaking with nurse there was concern for some occlusion of the line where insulin was infusing, however patient does have new IV site. Will continue to monitor trends. * Patient continues on IV steroids. She is order a diet, but only ate lunch thus far today. 03/25 * Patient hyperglycemic upon admission and BSGs only uptrended after the addition of IV dexamethasone. Upon consultation this morning a 0.4 unit/kg NPH and a 6 units IV insulin bolus were ordered in addition to tightening novolog scale. BSG remained over 300 at lunchtime despite this. Novolog was then changed to a full severe stress scale and lantus dose was ordered. An evening lantus scale and overnight novolog checks also added. * Will continue to monitor BSG trends, if BSG remains significantly elevated at dinner time, would consider initiation of an insulin infusion. Patient remains on IV dex and is tolerating a diet. PLAN FOR INPATIENT GLYCEMIC CONTROL: * Hold outpatient oral diabetes medications * Basal insulin * NPH 40 units qam * Lantus 25 units SQ X 1 this morning * Lantus 20 units SQ X at dinner * Bolus insulin * NovoLog per scale ACHS or Q6hrs while NPO * Goal Range: Low 110 mg/dL - High 140 mg/dL * Nutritional / Prandial insulin per carb ratio of 1 unit per 4 grams CHO consumed PLAN FOR DISCHARGE: * TBD
[2021-03-26] MEDS: SODIUM CHLORIDE 0.9% 10ML FLUSH IV SCH (15:00)
[2021-03-26] MEDS: SIMVASTATIN 20 MG TAB PO SCH (20:04)
[2021-03-26] MEDS: INSULIN REGULAR 250 UNITS in SODIUM CHLORIDE 0.9% 247.5 ML IV SCH ×2 (23:14→23:30)
[2021-03-27] MEDS ORDERED: INSULIN GLARGINE SOLOSTAR 100 UNITS/ML 3 ML PEN SC ONE
[2021-03-27] MEDS: ALBUTEROL 0.5% NEB SOLN 2.5 MG/0.5 ML VIAL NEB SCH ×2 (00:48→07:02)
[2021-03-27 06:43] LABS: Basophils # (auto) 0.02 K/uL (0-0.2); Basophils % (auto) 0.2 %; Hematocrit (blood only) 34.1 % (37-47); Hemoglobin 11.3 g/dL (12.0-16.0); Immature Granulocytes # (auto) 0.15 K/uL (0.00-0.02); Immature Granulocytes % (auto) 1.6 %; Lymphocytes # (auto) 1.59 K/uL (1.2-3.4); Lymphocytes % (auto) 16.9 %; Mean Corpuscular Hemoglobin 25.6 pg (25-34); Mean Corpuscular Hgb Conc 33.1 g/dL (32-36); Mean Corpuscular Volume 77.1 fL (80-100); Mean Platelet Volume 9.9 fL (7.4-10.4); Monocytes # (auto) 0.42 K/uL (0.11-0.59); Monocytes % (auto) 4.5 %; Neutrophils # (auto) 7.24 K/uL (1.4-6.5); Neutrophils % (auto) 76.8 %; Platelet Count 564 K/uL (130-400); RDW Coefficient of Variation 17.4 % (11.5-14.5); RDW Standard Deviation 48.9 fL (36.4-46.3); Red Blood Count 4.42 M/uL (4.2-5.4); White Blood Count 9.42 K/uL (4.8-10.8)
[2021-03-27 07:11] LABS: Albumin Level 2.3 gm/dl (3.4-5.0); Aspartate Aminotransferase 32 U/L (15-37); BUN Creatinine Ratio 24.2 (10-20); Blood Urea Nitrogen 28 mg/dl (7-18); Calcium 9.2 mg/dl (8.5-10.1); Carbon Dioxide 28 mmol/L (21-32); Chloride 104 mmol/L (98-107); Creatinine Clr Calc Pharmacy 67.4 ml/min; Est GFR (African American) 63.8 ml/min; Est GFR (Non-African American) 55.1 ml/min; Glucose 97 mg/dl (70-99); Magnesium 1.6 mg/dl (1.8-2.4); Potassium 3.3 mmol/L (3.5-5.1); Sodium 141 mmol/L (136-145)
[2021-03-27 07:14] LABS: Alanine Aminotransferase 29 U/L (12-78); Alkaline Phosphatase 75 U/L (45-117); Bilirubin Direct < 0.1 mg/dl (0-0.2); Bilirubin,Total 0.4 mg/dl (0.2-1)
[2021-03-27] MEDS: ACETAMINOPHEN 325 MG TAB PO PRN (07:31)
[2021-03-27] MEDS ORDERED: ALBUTEROL 0.5% NEB SOLN 2.5 MG/0.5 ML VIAL NEB PRN (07:43)
[2021-03-27] MEDS ORDERED: FUROSEMIDE 20 MG in SYRINGE 0 ML IV ONE (08:00)
[2021-03-27] MEDS: POTASSIUM CHLORIDE CRTAB 20 MEQ TABCR PO SCH ×3 (08:37→20:29)
[2021-03-27] MEDS: MAGNESIUM SULFATE / D5W 1 GM/100 ML BAG IV SCH ×2 (08:37→10:32)
[2021-03-27] MEDS: DIVALPROEX DELAY RELEASE 500 MG TAB PO SCH ×2 (08:37→20:28)
[2021-03-27] MEDS: dexAMETHasone 10 MG in SYRINGE 0 ML IV SCH (08:37)
[2021-03-27] MEDS: AZITHROMYCIN 250 MG TAB PO SCH (08:37)
[2021-03-27] MEDS: ENOXAPARIN INJ 40 MG/0.4 ML SYR SQ SCH ×2 (08:38→20:25)
[2021-03-27] MEDS ORDERED: INSULIN GLARGINE SOLOSTAR 100 UNITS/ML 3 ML PEN SC SCH ×2 (09:00→21:00)
[2021-03-27] MEDS ORDERED: INSULIN ASPART 100 UNITS/ML 3 ML PEN SC STA (09:19)
[2021-03-27] MEDS: INSULIN HUMAN NPH SC SCH (09:20)
[2021-03-27] MEDS ORDERED: FUROSEMIDE 40 MG/4 ML VIAL IV ONE (10:28)
--- NOTE | 2021-03-27 11:06 | Hospitalist Progress Note ---
Date of Service March 27, 2021 Assessment & Plan (1) COVID-19: Plan: Unvaccinated ~day 10 of infection on admission evidence of pneumonia, hypoxia, also with diarrhea, DIONE on admission continue dexamethasone 10mg IV daily, day 4 today Remdesivir x 5 days, day 4 today Zithromax 250mg daily x 5 days, day 4 no fever, Cr back to baseline, oxygen requirements down to 35L and 75% encourage her to lay prone use BIPAP at night, she is compliant encouraged her to eat what she can, be patient - Lovenox 40mg SUB q BID great response to Lasix 20mg IV in the morning and afternoon on 03/26 gave another dose on 03/27, hold on further doses until evaluated tomorrow (2) Acute respiratory failure with hypoxia: Plan: 35L and 75% today prone positioning as often as tolerated BIPAP HS for now as long as she is compliant due to COVID 19 pneumonia Lasix today, 20mg IV this morning, follow response (3) Bacterial pneumonia: Plan: possible bacterial pneumonia continue Zithromax for atypical coverage, 5 days total (4) Seizure: Plan: Continue Valproic acid -seizure precautions, no issues thus far (5) HLD (hyperlipidemia): Plan: Not on medicine at home - diet controll (6) DMII (diabetes mellitus, type 2): Plan: Hold Metformin and glimepride - hyperglycemic on 03/25 sugars 350-400 consulted pharmacy, added NPH, basal and Novolog scal had some hypoglycemia the past 24 hours, pharmacy adjusting regimen (7) DIONE (acute kidney injury): Plan: Cr improved to 1.17 K is 3.3, give 20mEq TID Mag is 1.6, give 2gm IV now check BMP in AM (8) Dehydration: Plan: resolved (9) Diarrhea: Plan: Imodium PRN Admission and Anticipated Discharge Date Admission Date: March 24, 2021 Subjective patient with very flat affect, she does say she is feeling better she is down to 35L and 75%, improved from yesterday told her and RN to make sure she lays prone this morning she is eating fairly well labs are stable no diarrhea, no fever, no chest pain Review of Systems Review of Systems: All systems reviewed & are unremarkable except as noted in Subjective Constitutional: + fatigue and + weakness; no fever Respiratory: + cough, + dyspnea and + dyspnea on exertion Physical Exam Constitutional: well developed, + ill appearing and comfortable; no acute distress Neck: trachea midline, no thyromegaly Respiratory: + cough and + tachypneic; no respiratory distress, no labored breathing and does not use accessory muscles Auscultation: + rales (bases); no crackles, no rhonchi and no wheezes Cardiovascular: RRR, no murmur, no edema Gastrointestinal (Abdomen): normal bowel sounds, soft, nontender, no hepatosplenomegaly Musculoskeletal: no cyanosis or clubbing, extremities motor strength 5/5 Skin: no rashes, warm and dry Neurologic: CN's II-XI intact bilaterally, normal sensation to monofilament, moves all extremities and awake; no focal motor deficits Psychiatric: Orientation: alert and oriented x 3 Affect: + flat affect Results & Data Results & Data ([facility]) Vital Signs (Past 12 Hours) Vital Signs Temp Pulse Pulse Pulse Resp BP Pulse Ox 03/27/21 07:57 36.9 C 89 16 117/70 93 03/27/21 07:04 75 18 96 03/27/21 03:22 61 20 97 03/27/21 03:00 36.9 C 59 L 20 109/63 99 03/27/21 00:51 59 L 22 03/27/21 00:48 67 20 91 03/26/21 23:33 57 L 18 97 03/26/21 23:22 60 Pulse Ox 03/27/21 07:57 03/27/21 07:04 03/27/21 03:22 03/27/21 03:00 03/27/21 00:51 91 03/27/21 00:48 03/26/21 23:33 03/26/21 23:22 Laboratory Results Laboratory Results - last 24 hr 03/26/21 03/26/21 03/26/21 10:36 12:17 16:47 WBC RBC Hgb Hct MCV MCH MCHC RDW Std Deviation RDW Coeff of Willis Plt Count MPV Immature Gran % (Auto) Neut % (Auto) Lymph % (Auto) [place] % (Auto) Eos % (Auto) Baso % (Auto) Neut # (Auto) Lymph # (Auto) [place] # (Auto) Eos # (Auto) Baso # (Auto) Immature Gran # (Auto) Sodium Potassium Chloride Carbon Dioxide Anion Gap BUN Creatinine Est Cr Clr Drug Dosing Est GFR ( Amer) Est GFR (Non-Af Amer) BUN/Creatinine Ratio Glucose POC Glucose 110 H 138 H 193 H Calcium Magnesium Total Bilirubin Direct Bilirubin AST ALT Alkaline Phosphatase Total Protein Albumin 03/26/21 03/26/21 03/26/21 18:32 19:53 20:58 WBC RBC Hgb Hct MCV MCH MCHC RDW Std Deviation RDW Coeff of Willis Plt Count MPV Immature Gran % (Auto) Neut % (Auto) Lymph % (Auto) [place] % (Auto) Eos % (Auto) Baso % (Auto) Neut # (Auto) Lymph # (Auto) [place] # (Auto) Eos # (Auto) Baso # (Auto) Immature Gran # (Auto) Sodium Potassium Chloride Carbon Dioxide Anion Gap BUN Creatinine Est Cr Clr Drug Dosing Est GFR ( Amer) Est GFR (Non-Af Amer) BUN/Creatinine Ratio Glucose POC Glucose 236 H 212 H 191 H Calcium Magnesium Total Bilirubin Direct Bilirubin AST ALT Alkaline Phosphatase Total Protein Albumin 03/26/21 03/27/21 03/27/21 23:07 00:03 00:32 WBC RBC Hgb Hct MCV MCH MCHC RDW Std Deviation RDW Coeff of Willis Plt Count MPV Immature Gran % (Auto) Neut % (Auto) Lymph % (Auto) [place] % (Auto) Eos % (Auto) Baso % (Auto) Neut # (Auto) Lymph # (Auto) [place] # (Auto) Eos # (Auto) Baso # (Auto) Immature Gran # (Auto) Sodium Potassium Chloride Carbon Dioxide Anion Gap BUN Creatinine Est Cr Clr Drug Dosing Est GFR ( Amer) Est GFR (Non-Af Amer) BUN/Creatinine Ratio Glucose POC Glucose 112 H 87 90 Calcium Magnesium Total Bilirubin Direct Bilirubin AST ALT Alkaline Phosphatase Total Protein Albumin 03/27/21 03/27/21 03/27/21 01:11 02:16 03:20 WBC RBC Hgb Hct MCV MCH MCHC RDW Std Deviation RDW Coeff of Willis Plt Count MPV Immature Gran % (Auto) Neut % (Auto) Lymph % (Auto) [place] % (Auto) Eos % (Auto) Baso % (Auto) Neut # (Auto) Lymph # (Auto) [place] # (Auto) Eos # (Auto) Baso # (Auto) Immature Gran # (Auto) Sodium Potassium Chloride Carbon Dioxide Anion Gap BUN Creatinine Est Cr Clr Drug Dosing Est GFR ( Amer) Est GFR (Non-Af Amer) BUN/Creatinine Ratio Glucose POC Glucose 84 88 93 Calcium Magnesium Total Bilirubin Direct Bilirubin AST ALT Alkaline Phosphatase Total Protein Albumin 03/27/21 03/27/21 03/27/21 04:06 05:02 05:48 WBC 9.42 RBC 4.42 Hgb 11.3 L Hct 34.1 L MCV 77.1 L MCH 25.6 MCHC 33.1 RDW Std Deviation 48.9 H RDW Coeff of Willis 17.4 H Plt Count 564 H MPV 9.9 Immature Gran % (Auto) 1.6 Neut % (Auto) 76.8 Lymph % (Auto) 16.9 [place] % (Auto) 4.5 Eos % (Auto) 0.0 Baso % (Auto) 0.2 Neut # (Auto) 7.24 H Lymph # (Auto) 1.59 [place] # (Auto) 0.42 Eos # (Auto) 0.00 Baso # (Auto) 0.02 Immature Gran # (Auto) 0.15 H Sodium Potassium Chloride Carbon Dioxide Anion Gap BUN Creatinine Est Cr Clr Drug Dosing Est GFR ( Amer) Est GFR (Non-Af Amer) BUN/Creatinine Ratio Glucose POC Glucose 97 102 H Calcium Magnesium Total Bilirubin Direct Bilirubin AST ALT Alkaline Phosphatase Total Protein Albumin 03/27/21 03/27/21 03/27/21 05:48 05:55 07:23 WBC RBC Hgb Hct MCV MCH MCHC RDW Std Deviation RDW Coeff of Willis Plt Count MPV Immature Gran % (Auto) Neut % (Auto) Lymph % (Auto) [place] % (Auto) Eos % (Auto) Baso % (Auto) Neut # (Auto) Lymph # (Auto) [place] # (Auto) Eos # (Auto) Baso # (Auto) Immature Gran # (Auto) Sodium 141 Potassium 3.3 L Chloride 104 Carbon Dioxide 28 Anion Gap 9.0 BUN 28 H Creatinine 1.17 Est Cr Clr Drug Dosing 67.4 Est GFR ( Amer) 63.8 Est GFR (Non-Af Amer) 55.1 BUN/Creatinine Ratio 24.2 H Glucose 97 POC Glucose 99 75 Calcium 9.2 Magnesium 1.6 L Total Bilirubin 0.4 Direct Bilirubin < 0.1 AST 32 ALT 29 Alkaline Phosphatase 75 Total Protein 8.0 Albumin 2.3 L 03/27/21 03/27/21 03/27/21 08:27 08:30 09:15 WBC RBC Hgb Hct MCV MCH MCHC RDW Std Deviation RDW Coeff of Willis Plt Count MPV Immature Gran % (Auto) Neut % (Auto) Lymph % (Auto) [place] % (Auto) Eos % (Auto) Baso % (Auto) Neut # (Auto) Lymph # (Auto) [place] # (Auto) Eos # (Auto) Baso # (Auto) Immature Gran # (Auto) Sodium Potassium Chloride Carbon Dioxide Anion Gap BUN Creatinine Est Cr Clr Drug Dosing Est GFR ( Amer) Est GFR (Non-Af Amer) BUN/Creatinine Ratio Glucose POC Glucose 63 L* 71 149 H Calcium Magnesium Total Bilirubin Direct Bilirubin AST ALT Alkaline Phosphatase Total Protein Albumin Medications Administered Current Inpatient Medications Acetaminophen (Acetaminophen 325 Mg Tab) 650 mg PO Q4H PRN PRN Reason: Pain or Fever Stop: 04/23/21 16:50 Last Admin: 03/27/21 07:31 Dose: 650 mg Documented by: Albuterol (Albuterol 0.5% Neb Soln 2.5 Mg/0.5 Ml Vial) 2.5 mg NEB Q6R PRN PRN Reason: Wheezing Stop: 04/23/21 18:59 Azithromycin (Azithromycin 250 Mg Tab) 250 mg PO QAM [facility] Stop: 04/01/21 08:59 Last Admin: 03/27/21 08:37 Dose: 250 mg Documented by: Dextrose (Dextrose 50% 50 Ml Syringe) 25 - 50 ml IV UD PRN; Protocol PRN Reason: Hypoglycemia Protocol Stop: 04/23/21 16:50 Diazepam (Diazepam 2 Mg Tablet) 2 mg PO QID PRN PRN Reason: Muscle Spasm Stop: 04/23/21 16:50 Divalproex Sodium (Divalproex Delay Release 500 Mg Tab) 500 mg PO BID [facility] Stop: 04/23/21 20:59 Last Admin: 03/27/21 08:37 Dose: 500 mg Documented by: Enoxaparin Sodium (Enoxaparin Inj 40 Mg/0.4 Ml Syr) 40 mg SQ Q12H [facility] Stop: 04/23/21 20:59 Last Admin: 03/27/21 08:38 Dose: 40 mg Documented by: Glucagon (Glucagon For Inj 1 Mg Vial) 1 mg SQ UD PRN; Protocol PRN Reason: Hypoglycemia Protocol Stop: 04/23/21 16:50 Glucose (Glucose 10 Tabs/Tube) 4 - 8 tabs PO UD PRN; Protocol PRN Reason: Hypoglycemia Protocol Stop: 04/23/21 16:50 Glucose (Glucose 40% Gel 15 Gm Tube) 15 - 30 gm PO UD PRN; Protocol PRN Reason: Hypoglycemia Protocol Stop: 04/23/21 16:50 Remdesivir 100 mg/ Sodium (Chloride) 250 mls @ 250 mls/hr IV Q24H [facility]; Protocol Stop: 03/28/21 12:59 Last Infusion: 03/26/21 15:02 Dose: Infused Documented by: Dexamethasone 10 mg/ Syringe 2.5 mls @ 1 mls/min IV DAILY [facility] Stop: 04/04/21 08:59 Last Admin: 03/27/21 08:37 Dose: 1 mls/min Documented by: Insulin Human Regular 250 (units/ Sodium Chloride) 250 mls @ 0 mls/hr IV .Q0M [facility]; Protocol Stop: 04/24/21 19:44 Last Titration: 03/27/21 07:35 Dose: 0 units/hr, 0 mls/hr Documented by: Magnesium Sulfate/Dextrose (Magnesium Sulfate / D5w) 1 gm in 100 mls @ 50 mls/hr IV Q2H [facility] Stop: 03/27/21 11:59 Last Admin: 03/27/21 10:32 Dose: 50 mls/hr Documented by: Insulin Aspart (Insulin Aspart 100 Units/Ml 3 Ml Pen) 0 units SC ACHS [facility] Stop: 04/26/21 11:29 Insulin Human NPH (Insulin Human Nph) 40 units SC QAM [facility] Stop: 04/25/21 08:59 Last Admin: 03/27/21 09:20 Dose: 40 units Documented by: Miscellaneous (Carbohydrates For Hypoglycemia ) 15 - 30 gm PO UD PRN PRN Reason: Hypoglycemia Protocol Stop: 04/23/21 16:50 Miscellaneous Information (Pharmacy Glycemic Mgmt Consult) 1 ea N/A UD PRN PRN Reason: Consult Stop: 04/24/21 07:49 Ondansetron HCl (Ondansetron Inj 2 Mg/Ml 2 Ml Vial) 4 mg IV Q6H PRN PRN Reason: Nausea Stop: 04/23/21 16:50 Polyethylene Glycol (Polyethylene (Miralax) 17 Gm Pack) 17 gm PO DAILY PRN PRN Reason: Constipation Stop: 04/23/21 16:50 Potassium Chloride (Potassium Chloride Crtab 20 Meq Tabcr) 20 meq PO TID [facility] Stop: 04/26/21 08:59 Last Admin: 03/27/21 08:37 Dose: 20 meq Documented by: Simvastatin (Simvastatin 20 Mg Tab) 20 mg PO HS [facility] Stop: 04/23/21 20:59 Last Admin: 03/26/21 20:04 Dose: 20 mg Documented by: Sodium Chloride (Sodium Chloride 0.9% 10ml Flush) 30 ml IV Q24H [facility] Stop: 03/28/21 12:01 Last Admin: 03/26/21 15:00 Dose: 30 ml Documented by: PG Care Time/CCT Total # of Minutes Spent Total Time Spent with Patient: Total time spent is greater than 50% in coordination of care (as documented) at patient's floor/unit and/or counseling patient: Coding Level of Care Code 57616 Subseq Hosp Care Lvl 3 Diagnoses COVID-19 U07.1 Acute respiratory failure with hypoxia J96.01 Bacterial pneumonia J15.9 Seizure R56.9 HLD (hyperlipidemia) E78.5 DMII (diabetes mellitus, type 2) E11.9 DIONE (acute kidney injury) N17.9 Dehydration E86.0 Diarrhea R19.7
[2021-03-27] MEDS: INSULIN ASPART 100 UNITS/ML 3 ML PEN SC SCH ×3 (12:45→20:26)
[2021-03-27] MEDS: REMDESIVIR 100 MG in SODIUM CHLORIDE 0.9% 230 ML IV SCH (12:47)
[2021-03-27] MEDS: SODIUM CHLORIDE 0.9% 10ML FLUSH IV SCH (12:47)
--- NOTE | 2021-03-27 14:22 | Pharmacy Report ---
Pharmacy Glycemic Short Note 2 - Date of Service March 27, 2021 - Glycemic Short BSG Results (Last 24 hours): 03/26/21 03/26/21 03/26/21 16:47 18:32 19:53 Glucose POC Glucose 193 H 236 H 212 H 03/26/21 03/26/21 03/27/21 20:58 23:07 00:03 Glucose POC Glucose 191 H 112 H 87 03/27/21 03/27/21 03/27/21 00:32 01:11 02:16 Glucose POC Glucose 90 84 88 03/27/21 03/27/21 03/27/21 03:20 04:06 05:02 Glucose POC Glucose 93 97 102 H 03/27/21 03/27/21 03/27/21 05:48 05:55 07:23 Glucose 97 POC Glucose 99 75 03/27/21 03/27/21 03/27/21 08:27 08:30 09:15 Glucose POC Glucose 63 L* 71 149 H 03/27/21 11:13 Glucose POC Glucose 217 H OUTPATIENT ANTIDIABETIC REGIMEN: * Glimepiride 1mg PO daily * Metformin 1000mg PO BID * A1C: 9.7% ASSESSMENT: 03/27: * Patient was successfully transferred off of the infusion this morning. Pt received 45 units of lantus, 40 units NPH, and 24 units of novolog in addition to the infusion running ~3.3 unit/hr yesterday. * Will monitor today's BSG trends off of the infusion to get a better assessment of true needs. * Patient continues on IV steroids and is tolerating a diet. 03/26: * Patient did require an insulin infusion yesterday for persistent hyperglycemia. BSGs downtrended nicely this morning and an attempt was made to transition off of the infusion. Despite high stress Lantus/ NovoLog and 0.45 unit/kg NPH, the insulin infusion rate remains at 3.3 units/hr X 6 hours post SQ basal insulin. will order another dose of Lantus at dinner and continue infusion, with hope of possibly transitioning off later this evening. After speaking with nurse there was concern for some occlusion of the line where insulin was infusing, however patient does have new IV site. Will continue to monitor trends. * Patient continues on IV steroids. She is order a diet, but only ate lunch thus far today. 03/25 * Patient hyperglycemic upon admission and BSGs only uptrended after the addition of IV dexamethasone. Upon consultation this morning a 0.4 unit/kg NPH and a 6 units IV insulin bolus were ordered in addition to tightening novolog scale. BSG remained over 300 at lunchtime despite this. Novolog was then changed to a full severe stress scale and lantus dose was ordered. An evening lantus scale and overnight novolog checks also added. * Will continue to monitor BSG trends, if BSG remains significantly elevated at dinner time, would consider initiation of an insulin infusion. Patient remains on IV dex and is tolerating a diet. PLAN FOR INPATIENT GLYCEMIC CONTROL: * Hold outpatient oral diabetes medications * Basal insulin * NPH 40 units qam * Lantus 35 units SQ X 1 this morning * Lantus 0 or 10 units SQ this evening based on BSG (See MAR for details) * Bolus insulin * NovoLog per scale ACHS or Q6hrs while NPO and overnight checks * Goal Range: Low 110 mg/dL - High 140 mg/dL * Correction Factor: 15 mg/dL/unit * Nutritional / Prandial insulin per carb ratio of 1 unit per 4 grams CHO consumed PLAN FOR DISCHARGE: * TBD
[2021-03-27] MEDS: SIMVASTATIN 20 MG TAB PO SCH (20:29)
[2021-03-28] MEDS: INSULIN ASPART 100 UNITS/ML 3 ML PEN SC SCH ×6 (00:27→21:06)
[2021-03-28] MEDS: dexAMETHasone 10 MG in SYRINGE 0 ML IV SCH (08:51)
[2021-03-28] MEDS: POTASSIUM CHLORIDE CRTAB 20 MEQ TABCR PO SCH ×3 (08:51→20:39)
[2021-03-28] MEDS: ENOXAPARIN INJ 40 MG/0.4 ML SYR SQ SCH ×2 (08:52→20:37)
[2021-03-28] MEDS: DIVALPROEX DELAY RELEASE 500 MG TAB PO SCH ×2 (08:52→20:40)
[2021-03-28] MEDS: AZITHROMYCIN 250 MG TAB PO SCH (08:52)
[2021-03-28] MEDS ORDERED: INSULIN HUMAN NPH SC SCH (09:00)
[2021-03-28] MEDS ORDERED: INSULIN GLARGINE SOLOSTAR 100 UNITS/ML 3 ML PEN SC SCH (09:00)
--- NOTE | 2021-03-28 09:19 | Hospitalist Progress Note ---
Date of Service March 28, 2021 Assessment & Plan (1) COVID-19: Plan: Unvaccinated ~day 10 of infection on admission evidence of pneumonia, hypoxia, also with diarrhea, DIONE on admission continue dexamethasone 10mg IV daily, day 5 today Remdesivir x 5 days, day 5 today Zithromax 250mg daily x 5 days, day 5 no fever, Cr back to baseline, oxygen requirements down to 35L and 70% encourage her to lay prone use BIPAP at night, she is compliant appetite is improved, eating 100% of meals - Lovenox 40mg SUB q BID great response to Lasix 20mg IV on 03/26 and 03/27 check BMP prior to deciding on another dose today prognosis improving each day check portable CXR today (2) Acute respiratory failure with hypoxia: Plan: 35L and 70% today prone positioning as often as tolerated BIPAP HS for now as long as she is compliant due to COVID 19 pneumonia using Lasix PRN for negative fluid balance (3) Bacterial pneumonia: Plan: possible bacterial pneumonia continue Zithromax for atypical coverage, 5 days total, last day is today has a cough, not much sputum production (4) Seizure: Plan: h/o seizure disorder Continue Valproic acid -seizure precautions, no issues thus far (5) HLD (hyperlipidemia): Plan: Not on medicine at home - diet controll (6) DMII (diabetes mellitus, type 2): Plan: Hold Metformin and glimepride - hyperglycemic on 03/25 sugars 350-400 consulted pharmacy, added NPH, basal and Novolog scal had some hypoglycemia 03/26, pharmacy adjusted regimen, continue to monitor closely (7) DIONE (acute kidney injury): Plan: Cr improved to 1.17 K was 3.3 on 03/27, continue 20mEq TID repeat Mag today check BMP, Mag this morning and follow up results Admission and Anticipated Discharge Date Admission Date: March 24, 2021 Subjective patient doing well, ate her entire breakfast, now drinking some tea, Face Timing her family she is very calm, no distress at all, slightly tachypneic but otherwise well no BM for several days, will try some Miralax check labs this morning and portable chest x-ray she says she will lay prone again today cough with minimal sputum, no chest pain, no fever, no nausea, no chills, strength better Review of Systems Review of Systems: All systems reviewed & are unremarkable except as noted in Subjective Physical Exam Constitutional: well developed, + ill appearing and comfortable; no acute distress Neck: trachea midline, no thyromegaly Respiratory: + cough and + tachypneic; no respiratory distress, no labored breathing and does not use accessory muscles Auscultation: no crackles, no rales, no rhonchi and no wheezes Cardiovascular: RRR, no murmur, no edema Gastrointestinal (Abdomen): normal bowel sounds, soft, nontender, no hepatosplenomegaly Musculoskeletal: no cyanosis or clubbing, extremities motor strength 5/5 Skin: no rashes, warm and dry Neurologic: CN's II-XI intact bilaterally, normal sensation to monofilament, moves all extremities and awake; no focal motor deficits Psychiatric: Orientation: alert and oriented x 3 Affect: + flat affect Results & Data Results & Data ([facility]) Vital Signs (Past 12 Hours) Vital Signs Temp Pulse Pulse Resp BP Pulse Ox 03/28/21 07:41 36.6 C 62 20 125/72 95 03/28/21 07:24 72 22 90 03/28/21 03:15 69 20 93 03/28/21 03:00 36.5 C 62 16 158/82 H 94 03/28/21 00:00 56 L 03/27/21 22:51 36.7 C 65 20 119/75 97 03/27/21 21:46 63 16 90 Medications Administered Current Inpatient Medications Acetaminophen (Acetaminophen 325 Mg Tab) 650 mg PO Q4H PRN PRN Reason: Pain or Fever Stop: 04/23/21 16:50 Last Admin: 03/27/21 07:31 Dose: 650 mg Documented by: Albuterol (Albuterol 0.5% Neb Soln 2.5 Mg/0.5 Ml Vial) 2.5 mg NEB Q6R PRN PRN Reason: Wheezing Stop: 04/23/21 18:59 Azithromycin (Azithromycin 250 Mg Tab) 250 mg PO QAM [facility] Stop: 04/01/21 08:59 Last Admin: 03/28/21 08:52 Dose: 250 mg Documented by: Dextrose (Dextrose 50% 50 Ml Syringe) 25 - 50 ml IV UD PRN; Protocol PRN Reason: Hypoglycemia Protocol Stop: 04/23/21 16:50 Diazepam (Diazepam 2 Mg Tablet) 2 mg PO QID PRN PRN Reason: Muscle Spasm Stop: 04/23/21 16:50 Divalproex Sodium (Divalproex Delay Release 500 Mg Tab) 500 mg PO BID [facility] Stop: 04/23/21 20:59 Last Admin: 03/28/21 08:52 Dose: 500 mg Documented by: Enoxaparin Sodium (Enoxaparin Inj 40 Mg/0.4 Ml Syr) 40 mg SQ Q12H [facility] Stop: 04/23/21 20:59 Last Admin: 03/28/21 08:52 Dose: 40 mg Documented by: Glucagon (Glucagon For Inj 1 Mg Vial) 1 mg SQ UD PRN; Protocol PRN Reason: Hypoglycemia Protocol Stop: 04/23/21 16:50 Glucose (Glucose 10 Tabs/Tube) 4 - 8 tabs PO UD PRN; Protocol PRN Reason: Hypoglycemia Protocol Stop: 04/23/21 16:50 Glucose (Glucose 40% Gel 15 Gm Tube) 15 - 30 gm PO UD PRN; Protocol PRN Reason: Hypoglycemia Protocol Stop: 04/23/21 16:50 Remdesivir 100 mg/ Sodium (Chloride) 250 mls @ 250 mls/hr IV Q24H [facility]; Protocol Stop: 03/28/21 12:59 Last Infusion: 03/27/21 13:47 Dose: Infused Documented by: Dexamethasone 10 mg/ Syringe 2.5 mls @ 1 mls/min IV DAILY [facility] Stop: 04/04/21 08:59 Last Admin: 03/28/21 08:51 Dose: 1 mls/min Documented by: Insulin Aspart (Insulin Aspart 100 Units/Ml 3 Ml Pen) 0 units SC ACHS [facility] Stop: 04/26/21 11:29 Last Admin: 03/28/21 08:50 Dose: 10 units Documented by: Insulin Glargine (Insulin Glargine Solostar 100 Units/Ml 3 Ml Pen) 35 units SC TODAY@0900 [facility] Stop: 04/27/21 08:59 Last Admin: 03/28/21 08:53 Dose: 35 units Documented by: Insulin Human NPH (Insulin Human Nph) 45 units SC QAM [facility] Stop: 04/27/21 08:59 Last Admin: 03/28/21 08:54 Dose: 45 units Documented by: Miscellaneous (Carbohydrates For Hypoglycemia ) 15 - 30 gm PO UD PRN PRN Reason: Hypoglycemia Protocol Stop: 04/23/21 16:50 Miscellaneous Information (Pharmacy Glycemic Mgmt Consult) 1 ea N/A UD PRN PRN Reason: Consult Stop: 04/24/21 07:49 Ondansetron HCl (Ondansetron Inj 2 Mg/Ml 2 Ml Vial) 4 mg IV Q6H PRN PRN Reason: Nausea Stop: 04/23/21 16:50 Polyethylene Glycol (Polyethylene (Miralax) 17 Gm Pack) 17 gm PO DAILY PRN PRN Reason: Constipation Stop: 04/23/21 16:50 Potassium Chloride (Potassium Chloride Crtab 20 Meq Tabcr) 20 meq PO TID [facility] Stop: 04/26/21 08:59 Last Admin: 03/28/21 08:51 Dose: 20 meq Documented by: Simvastatin (Simvastatin 20 Mg Tab) 20 mg PO HS [facility] Stop: 04/23/21 20:59 Last Admin: 03/27/21 20:29 Dose: 20 mg Documented by: Sodium Chloride (Sodium Chloride 0.9% 10ml Flush) 30 ml IV Q24H [facility] Stop: 03/28/21 12:01 Last Admin: 03/27/21 12:47 Dose: 30 ml Documented by: PG Care Time/CCT Total # of Minutes Spent Total Time Spent with Patient: Total time spent is greater than 50% in coordination of care (as documented) at patient's floor/unit and/or counseling patient: Coding Level of Care Code 78092 Subseq Hosp Care Lvl 3 Diagnoses COVID-19 U07.1 Acute respiratory failure with hypoxia J96.01 Bacterial pneumonia J15.9 Seizure R56.9 HLD (hyperlipidemia) E78.5 DMII (diabetes mellitus, type 2) E11.9 DIONE (acute kidney injury) N17.9
--- NOTE | 2021-03-28 10:03 | XRay Report ---
XR chest 1V portable CLINICAL HISTORY: COVID follow up COMPARISON STUDY: Chest radiograph March 24, 2021. FINDINGS: Lung volumes are normal. Bilateral airspace opacities are again noted. Left upper lobe airs pace opacity has slightly progressed. There is no pneumothorax or pleural effusion. Cardiac size is n ormal. Mediastinal contours are normal. There is no evidence for pulmonary edema. IMPRESSION: Moderate bilateral airspace opacities consistent with viral pneumonia. Slight progressio n since prior exam. ACT 112: Negative or not required by law. Electronically signed by: Teto Chandra M.D. 03/28/2021 10:02 AM
[2021-03-28 10:05] LABS: Hematocrit (blood only) 32.7 % (37-47); Hemoglobin 10.7 g/dL (12.0-16.0); Mean Corpuscular Hemoglobin 25.4 pg (25-34); Mean Corpuscular Hgb Conc 32.7 g/dL (32-36); Mean Corpuscular Volume 77.7 fL (80-100); Mean Platelet Volume 9.3 fL (7.4-10.4); Platelet Count 527 K/uL (130-400); RDW Coefficient of Variation 17.4 % (11.5-14.5); RDW Standard Deviation 49.3 fL (36.4-46.3); Red Blood Count 4.21 M/uL (4.2-5.4); White Blood Count 10.48 K/uL (4.8-10.8)
[2021-03-28 10:22] LABS: BUN Creatinine Ratio 28.2 (10-20); C Reactive Protein 5.2 mg/dl (0-0.29); Calcium 8.6 mg/dl (8.5-10.1); Creatinine Clr Calc Pharmacy 66.3 ml/min; Est GFR (African American) 62.5 ml/min; Est GFR (Non-African American) 53.9 ml/min; Magnesium 2.1 mg/dl (1.8-2.4); Potassium 3.5 mmol/L (3.5-5.1)
[2021-03-28] MEDS: POLYETHYLENE (MIRALAX) 17 GM PACK PO SCH (11:56)
[2021-03-28] MEDS: REMDESIVIR 100 MG in SODIUM CHLORIDE 0.9% 230 ML IV SCH (11:56)
[2021-03-28] MEDS: SODIUM CHLORIDE 0.9% 10ML FLUSH IV SCH (13:09)
[2021-03-28] MEDS ORDERED: FUROSEMIDE 20 MG in SYRINGE 0 ML IV ONE (15:51)
[2021-03-28] MEDS ORDERED: FUROSEMIDE 40 MG/4 ML VIAL IV ONE (16:00)
[2021-03-28] MEDS: SIMVASTATIN 20 MG TAB PO SCH (20:40)
[2021-03-29] MEDS: INSULIN ASPART 100 UNITS/ML 3 ML PEN SC SCH ×6 (00:12→21:46)
[2021-03-29 06:33] LABS: BUN Creatinine Ratio 30.4 (10-20); Calcium 9.1 mg/dl (8.5-10.1); Creatinine Clr Calc Pharmacy 68.6 ml/min; Est GFR (African American) 65.9 ml/min; Est GFR (Non-African American) 56.8 ml/min; Potassium 4.2 mmol/L (3.5-5.1)
[2021-03-29] MEDS: CARBOHYDRATES FOR HYPOGLYCEMIA PO PRN (07:51)
[2021-03-29] MEDS: POLYETHYLENE (MIRALAX) 17 GM PACK PO SCH (08:28)
[2021-03-29] MEDS: POTASSIUM CHLORIDE CRTAB 20 MEQ TABCR PO SCH ×3 (08:33→21:23)
[2021-03-29] MEDS: AZITHROMYCIN 250 MG TAB PO SCH (08:37)
[2021-03-29] MEDS: DIVALPROEX DELAY RELEASE 500 MG TAB PO SCH ×2 (08:37→21:23)
[2021-03-29] MEDS: dexAMETHasone 10 MG in SYRINGE 0 ML IV SCH (08:37)
[2021-03-29] MEDS: ENOXAPARIN INJ 40 MG/0.4 ML SYR SQ SCH ×2 (08:38→21:22)
[2021-03-29] MEDS ORDERED: INSULIN HUMAN NPH SC SCH (09:00)
--- NOTE | 2021-03-29 10:33 | Hospitalist Progress Note ---
Date of Service March 29, 2021 Assessment & Plan (1) COVID-19: Plan: Unvaccinated ~day 10 of infection on admission evidence of pneumonia, hypoxia, also with diarrhea, DIONE on admission continue dexamethasone 10mg IV daily, day 6 today Remdesivir x 5 days, completed Zithromax 250mg daily, 5 days completed no fever, Cr back to baseline, oxygen requirements down to 30L and 55% encourage her to lay prone use BIPAP at night, she is compliant appetite is improved, eating 100% of meals, had a BM this morning - Lovenox 40mg SUB q BID great response to Lasix 20mg IV on 03/26 and 03/27 and 03/28 prognosis improving each day hopeful for discharge early/mid week next week (2) Acute respiratory failure with hypoxia: Plan: 30L and 55% today prone positioning as often as tolerated BIPAP HS for now as long as she is compliant due to COVID 19 pneumonia using Lasix PRN for negative fluid balance (3) Bacterial pneumonia: Plan: possible bacterial pneumonia completed Zithromax, 5 days total has a cough, not much sputum production (4) Seizure: Plan: h/o seizure disorder Continue Valproic acid -seizure precautions, no issues thus far (5) HLD (hyperlipidemia): Plan: Not on medicine at home - diet controll (6) DMII (diabetes mellitus, type 2): Plan: Hold Metformin and glimepride - hyperglycemic on 03/25 sugars 350-400 consulted pharmacy, added NPH, basal and Novolog scal had some hypoglycemia this morning 03/29, pharmacy adjusted regimen, continue to monitor closely (7) DIONE (acute kidney injury): Plan: Cr improved to 1.1 K up to 4.2 today, stop TID supplement Mag is 2.2 Admission and Anticipated Discharge Date Admission Date: March 24, 2021 Subjective patient breathing very comfortably, laying supine on 30L and 55% this morning labs reviewed, K is >4, will hold supplements, Cr and BUN stable no fever eating well, had a BM this morning, no nausea/vomiting still very flat affect, depressed from loss of her daughter Review of Systems Review of Systems: All systems reviewed & are unremarkable except as noted in Subjective Respiratory: + cough and + dyspnea on exertion Psychiatric: + depression Physical Exam Constitutional: well developed and comfortable; no acute distress Neck: trachea midline, no thyromegaly Respiratory: normal respiratory effort and + cough; no respiratory distress, no labored breathing, does not use accessory muscles and not tachypneic Auscultation: no crackles, no rales, no rhonchi and no wheezes Cardiovascular: RRR, no murmur, no edema Gastrointestinal (Abdomen): normal bowel sounds, soft, nontender, no hepatosplenomegaly Musculoskeletal: no cyanosis or clubbing, extremities motor strength 5/5 Skin: no rashes, warm and dry Neurologic: CN's II-XI intact bilaterally, normal sensation to monofilament, moves all extremities and awake; no focal motor deficits Psychiatric: Orientation: alert and oriented x 3 Affect: + flat affect Results & Data Results & Data ([facility]) Vital Signs (Past 12 Hours) Vital Signs Temp Pulse Pulse Resp BP Pulse Ox 03/29/21 07:19 75 21 94 03/29/21 07:12 36.5 C 59 L 22 114/82 96 03/29/21 03:58 59 L 17 95 03/29/21 03:45 36.4 C L 60 24 110/71 98 03/28/21 23:55 36.4 C L 96 H 18 107/69 98 03/28/21 22:42 57 L 15 94 Laboratory Results Laboratory Results - last 24 hr 03/28/21 03/28/21 03/28/21 11:46 16:53 20:33 Sodium Potassium Chloride Carbon Dioxide Anion Gap BUN Creatinine Est Cr Clr Drug Dosing Est GFR ( Amer) Est GFR (Non-Af Amer) BUN/Creatinine Ratio Glucose POC Glucose 200 H 274 H 211 H Calcium Magnesium 03/29/21 03/29/21 03/29/21 00:09 04:47 04:55 Sodium Potassium Chloride Carbon Dioxide Anion Gap BUN Creatinine Est Cr Clr Drug Dosing Est GFR ( Amer) Est GFR (Non-Af Amer) BUN/Creatinine Ratio Glucose POC Glucose 138 H 61 L* 70 Calcium Magnesium 03/29/21 03/29/21 03/29/21 05:45 07:47 07:48 Sodium 138 Potassium 4.2 D Chloride 106 Carbon Dioxide 28 Anion Gap 4.0 BUN 35 H Creatinine 1.14 Est Cr Clr Drug Dosing 68.6 Est GFR ( Amer) 65.9 Est GFR (Non-Af Amer) 56.8 BUN/Creatinine Ratio 30.4 H Glucose 84 POC Glucose 64 L* 62 L* Calcium 9.1 Magnesium 2.0 03/29/21 03/29/21 08:10 09:04 Sodium Potassium Chloride Carbon Dioxide Anion Gap BUN Creatinine Est Cr Clr Drug Dosing Est GFR ( Amer) Est GFR (Non-Af Amer) BUN/Creatinine Ratio Glucose POC Glucose 56 L* 136 H Calcium Magnesium Medications Administered Current Inpatient Medications Acetaminophen (Acetaminophen 325 Mg Tab) 650 mg PO Q4H PRN PRN Reason: Pain or Fever Stop: 04/23/21 16:50 Last Admin: 03/27/21 07:31 Dose: 650 mg Documented by: Albuterol (Albuterol 0.5% Neb Soln 2.5 Mg/0.5 Ml Vial) 2.5 mg NEB Q6R PRN PRN Reason: Wheezing Stop: 04/23/21 18:59 Azithromycin (Azithromycin 250 Mg Tab) 250 mg PO QAM [facility] Stop: 04/01/21 08:59 Last Admin: 03/29/21 08:37 Dose: 250 mg Documented by: Dextrose (Dextrose 50% 50 Ml Syringe) 25 - 50 ml IV UD PRN; Protocol PRN Reason: Hypoglycemia Protocol Stop: 04/23/21 16:50 Diazepam (Diazepam 2 Mg Tablet) 2 mg PO QID PRN PRN Reason: Muscle Spasm Stop: 04/23/21 16:50 Divalproex Sodium (Divalproex Delay Release 500 Mg Tab) 500 mg PO BID [facility] Stop: 04/23/21 20:59 Last Admin: 03/29/21 08:37 Dose: 500 mg Documented by: Enoxaparin Sodium (Enoxaparin Inj 40 Mg/0.4 Ml Syr) 40 mg SQ Q12H [facility] Stop: 04/23/21 20:59 Last Admin: 03/29/21 08:38 Dose: 40 mg Documented by: Glucagon (Glucagon For Inj 1 Mg Vial) 1 mg SQ UD PRN; Protocol PRN Reason: Hypoglycemia Protocol Stop: 04/23/21 16:50 Glucose (Glucose 10 Tabs/Tube) 4 - 8 tabs PO UD PRN; Protocol PRN Reason: Hypoglycemia Protocol Stop: 04/23/21 16:50 Glucose (Glucose 40% Gel 15 Gm Tube) 15 - 30 gm PO UD PRN; Protocol PRN Reason: Hypoglycemia Protocol Stop: 04/23/21 16:50 Dexamethasone 10 mg/ Syringe 2.5 mls @ 1 mls/min IV DAILY [facility] Stop: 04/04/21 08:59 Last Admin: 03/29/21 08:37 Dose: 1 mls/min Documented by: Insulin Aspart (Insulin Aspart 100 Units/Ml 3 Ml Pen) 0 units SC ACHS [facility] Stop: 04/26/21 11:29 Last Admin: 03/29/21 08:40 Dose: 8 units Documented by: Insulin Human NPH (Insulin Human Nph) 55 units SC QAM [facility] Stop: 04/28/21 08:59 Last Admin: 03/29/21 09:02 Dose: 55 units Documented by: Miscellaneous (Carbohydrates For Hypoglycemia ) 15 - 30 gm PO UD PRN PRN Reason: Hypoglycemia Protocol Stop: 04/23/21 16:50 Last Admin: 03/29/21 07:51 Dose: 15 gm Documented by: Miscellaneous Information (Pharmacy Glycemic Mgmt Consult) 1 ea N/A UD PRN PRN Reason: Consult Stop: 04/24/21 07:49 Ondansetron HCl (Ondansetron Inj 2 Mg/Ml 2 Ml Vial) 4 mg IV Q6H PRN PRN Reason: Nausea Stop: 04/23/21 16:50 Polyethylene Glycol (Polyethylene (Miralax) 17 Gm Pack) 17 gm PO DAILY [facility] Stop: 04/27/21 09:29 Last Admin: 03/29/21 08:28 Dose: Not Given Documented by: Potassium Chloride (Potassium Chloride Crtab 20 Meq Tabcr) 20 meq PO TID [facility] Stop: 04/26/21 08:59 Last Admin: 03/29/21 08:33 Dose: Not Given Documented by: Simvastatin (Simvastatin 20 Mg Tab) 20 mg PO HS [facility] Stop: 04/23/21 20:59 Last Admin: 03/28/21 20:40 Dose: 20 mg Documented by: PG Care Time/CCT Total # of Minutes Spent Total Time Spent with Patient: Total time spent is greater than 50% in coordination of care (as documented) at patient's floor/unit and/or counseling patient: Coding Level of Care Code 83683 Subseq Hosp Care Lvl 3 Diagnoses COVID-19 U07.1 Acute respiratory failure with hypoxia J96.01 Bacterial pneumonia J15.9 Seizure R56.9 HLD (hyperlipidemia) E78.5 DMII (diabetes mellitus, type 2) E11.9 DIONE (acute kidney injury) N17.9
[2021-03-29] MEDS ORDERED: INSULIN GLARGINE SOLOSTAR 100 UNITS/ML 3 ML PEN SC SCH (12:00)
--- NOTE | 2021-03-29 15:05 | Pharmacy Report ---
Pharmacy Glycemic Short Note 2 - Date of Service March 29, 2021 - Glycemic Short BSG Results (Last 24 hours): 03/28/21 03/28/21 03/29/21 16:53 20:33 00:09 Glucose POC Glucose 274 H 211 H 138 H 03/29/21 03/29/21 03/29/21 04:47 04:55 05:45 Glucose 84 POC Glucose 61 L* 70 03/29/21 03/29/21 03/29/21 07:47 07:48 08:10 Glucose POC Glucose 64 L* 62 L* 56 L* 03/29/21 03/29/21 09:04 11:44 Glucose POC Glucose 136 H 186 H OUTPATIENT ANTIDIABETIC REGIMEN: * Glimepiride 1mg PO daily * Metformin 1000mg PO BID * A1C: 9.7% ASSESSMENT: 03/29/21: * Patient's AM fasting low today at 61 mg/dL after 35 units of lantus yesterday. Post prandials elevated yesterday with 45 units of NPH on board. * Will decrease lantus dose (and administer at lunchtime) and increase NPH to better cover post prandial BSGs. If post prandials remain elevated can consider tightening NovoLog scale further tomorrow. Patient continues on dex and is tolerating a diet. 03/27: * Patient was successfully transferred off of the infusion this morning. Pt received 45 units of lantus, 40 units NPH, and 24 units of novolog in addition to the infusion running ~3.3 unit/hr yesterday. * Will monitor today's BSG trends off of the infusion to get a better assessment of true needs. * Patient continues on IV steroids and is tolerating a diet. 03/26: * Patient did require an insulin infusion yesterday for persistent hyperglycemia. BSGs downtrended nicely this morning and an attempt was made to transition off of the infusion. Despite high stress Lantus/ NovoLog and 0.45 unit/kg NPH, the insulin infusion rate remains at 3.3 units/hr X 6 hours post SQ basal insulin. will order another dose of Lantus at dinner and continue infusion, with hope of possibly transitioning off later this evening. After speaking with nurse there was concern for some occlusion of the line where insulin was infusing, however patient does have new IV site. Will continue to monitor trends. * Patient continues on IV steroids. She is order a diet, but only ate lunch thus far today. 03/25 * Patient hyperglycemic upon admission and BSGs only uptrended after the addition of IV dexamethasone. Upon consultation this morning a 0.4 unit/kg NPH and a 6 units IV insulin bolus were ordered in addition to tightening novolog scale. BSG remained over 300 at lunchtime despite this. Novolog was then changed to a full severe stress scale and lantus dose was ordered. An evening lantus scale and overnight novolog checks also added. * Will continue to monitor BSG trends, if BSG remains significantly elevated at dinner time, would consider initiation of an insulin infusion. Patient remains on IV dex and is tolerating a diet. PLAN FOR INPATIENT GLYCEMIC CONTROL: * Hold outpatient oral diabetes medications * Basal insulin * NPH 55 units qam * Lantus 25 units SQ X 1 at noon * Bolus insulin * NovoLog per scale ACHS or Q6hrs while NPO and overnight checks * Goal Range: Low 110 mg/dL - High 140 mg/dL * Correction Factor: 12 mg/dL/unit * Nutritional / Prandial insulin per carb ratio of 1 unit per 4 grams CHO consumed PLAN FOR DISCHARGE: * TBD
[2021-03-29] MEDS: ACETAMINOPHEN 325 MG TAB PO PRN (18:17)
[2021-03-29] MEDS: SIMVASTATIN 20 MG TAB PO SCH (21:23)
[2021-03-30] MEDS: INSULIN ASPART 100 UNITS/ML 3 ML PEN SC SCH ×6 (00:06→20:20)
[2021-03-30 07:03] LABS: BUN Creatinine Ratio 33.1 (10-20); Calcium 9.2 mg/dl (8.5-10.1); Creatinine Clr Calc Pharmacy 79.6 ml/min; Est GFR (African American) 79.1 ml/min; Est GFR (Non-African American) 68.2 ml/min; Potassium 4.6 mmol/L (3.5-5.1)
[2021-03-30] MEDS: CARBOHYDRATES FOR HYPOGLYCEMIA PO PRN (08:03)
[2021-03-30] MEDS ORDERED: INSULIN GLARGINE SOLOSTAR 100 UNITS/ML 3 ML PEN SC ONE ×2 (09:00)
[2021-03-30] MEDS: DIVALPROEX DELAY RELEASE 500 MG TAB PO SCH ×2 (09:07→20:21)
[2021-03-30] MEDS: AZITHROMYCIN 250 MG TAB PO SCH (09:07)
[2021-03-30] MEDS: dexAMETHasone 10 MG in SYRINGE 0 ML IV SCH (09:09)
[2021-03-30] MEDS: ENOXAPARIN INJ 40 MG/0.4 ML SYR SQ SCH ×2 (09:09→20:22)
[2021-03-30] MEDS: POLYETHYLENE (MIRALAX) 17 GM PACK PO SCH (09:10)
[2021-03-30] MEDS: INSULIN HUMAN NPH SC SCH (09:10)
[2021-03-30] MEDS: POTASSIUM CHLORIDE CRTAB 20 MEQ TABCR PO SCH (10:11)
--- NOTE | 2021-03-30 10:24 | Pharmacy Report ---
Pharmacy Glycemic Short Note 2 - Date of Service March 30, 2021 - Glycemic Short BSG Results (Last 24 hours): 03/29/21 03/29/21 03/29/21 11:44 16:58 20:32 Glucose POC Glucose 186 H 284 H 251 H 03/30/21 03/30/21 03/30/21 00:05 04:53 05:42 Glucose 81 POC Glucose 163 H 92 03/30/21 03/30/21 03/30/21 07:52 07:53 08:14 Glucose POC Glucose 57 L* 56 L* 54 L* 03/30/21 09:04 Glucose POC Glucose 148 H OUTPATIENT ANTIDIABETIC REGIMEN: * Glimepiride 1mg PO daily * Metformin 1000mg PO BID * A1C: 9.7% ASSESSMENT: 03/30/21 * Patient's BSGs yesterday were [phone] and overnight were 163-92 mg/dL. Fasting today was 54 mg/dL. * For hypoglycemia with fasting BSG --- could be a combination of Lantus plus a ggressive correction factor at HS. Patient received 10 units at bedtime. Will reduce Lantus by 50% as this was a second hypoglycemic even in AM. Loosen CF from 12 to 30 mg/dL at bedtime. * Increase NPH as BSGs severely elevated throughout the day. Tighten CR. 03/29/21: * Patient's AM fasting low today at 61 mg/dL after 35 units of lantus yesterday. Post prandials elevated yesterday with 45 units of NPH on board. * Will decrease lantus dose (and administer at lunchtime) and increase NPH to better cover post prandial BSGs. If post prandials remain elevated can consider tightening NovoLog scale further tomorrow. Patient continues on dex and is tolerating a diet. 03/27: * Patient was successfully transferred off of the infusion this morning. Pt received 45 units of lantus, 40 units NPH, and 24 units of novolog in addition to the infusion running ~3.3 unit/hr yesterday. * Will monitor today's BSG trends off of the infusion to get a better assessment of true needs. * Patient continues on IV steroids and is tolerating a diet. 03/26: * Patient did require an insulin infusion yesterday for persistent hyperglycemia. BSGs downtrended nicely this morning and an attempt was made to transition off of the infusion. Despite high stress Lantus/ NovoLog and 0.45 unit/kg NPH, the insulin infusion rate remains at 3.3 units/hr X 6 hours post SQ basal insulin. will order another dose of Lantus at dinner and continue infusion, with hope of possibly transitioning off later this evening. After speaking with nurse there was concern for some occlusion of the line where insulin was infusing, however patient does have new IV site. Will continue to monitor trends. * Patient continues on IV steroids. She is order a diet, but only ate lunch thus far today. 03/25 * Patient hyperglycemic upon admission and BSGs only uptrended after the addition of IV dexamethasone. Upon consultation this morning a 0.4 unit/kg NPH and a 6 units IV insulin bolus were ordered in addition to tightening novolog scale. BSG remained over 300 at lunchtime despite this. Novolog was then changed to a full severe stress scale and lantus dose was ordered. An evening lantus scale and overnight novolog checks also added. * Will continue to monitor BSG trends, if BSG remains significantly elevated at dinner time, would consider initiation of an insulin infusion. Patient remains on IV dex and is tolerating a diet. PLAN FOR INPATIENT GLYCEMIC CONTROL: * Hold outpatient oral diabetes medications * Basal insulin * NPH 65 units qam * Lantus 15 units SQ AM * Bolus insulin * NovoLog per scale ACHS or Q6hrs while NPO and overnight checks * Goal Range: Low 110 mg/dL - High 140 mg/dL * Correction Factor: 12 mg/dL/unit (30 mg/dL/unit at bedtime) * Nutritional / Prandial insulin per carb ratio of 1 unit per 3 grams CHO consumed PLAN FOR DISCHARGE: * TBD
[2021-03-30] MEDS ORDERED: FUROSEMIDE 20 MG in SYRINGE 0 ML IV ONE (10:49)
--- NOTE | 2021-03-30 10:56 | Hospitalist Progress Note ---
Date of Service March 30, 2021 Assessment & Plan (1) COVID-19: Plan: Unvaccinated ~day 10 of infection on admission evidence of pneumonia, hypoxia, also with diarrhea, DIONE on admission continue dexamethasone 10mg IV daily, day 7 today Remdesivir x 5 days, completed Zithromax 250mg daily, 5 days completed no fever, Cr back to baseline, oxygen requirements down to 25L and 65% encourage her to lay prone during the days use CPAP at night, she is compliant appetite is improved, eating 100% of meals, had a BM on 03/29 - Lovenox 40mg SUB q BID give Lasix 20mg IV this morning prognosis improving each day hopeful for discharge early/mid week next week (2) Acute respiratory failure with hypoxia: Plan: 25L and 55% today prone positioning as often as tolerated CPAP HS for now as long as she is compliant using Lasix PRN for negative fluid balance, give a dose this morning (3) Bacterial pneumonia: Plan: possible bacterial pneumonia completed Zithromax, 5 days total has a cough, not much sputum production (4) Seizure: Plan: h/o seizure disorder Continue Valproic acid -seizure precautions, no issues thus far (5) HLD (hyperlipidemia): Plan: Not on medicine at home - diet controll (6) DMII (diabetes mellitus, type 2): Plan: Hold Metformin and glimepride - hyperglycemic on 03/25 sugars 350-400 consulted pharmacy, added NPH 65 units, basal and Novolog scale more hypoglycemia this morning, happened the past three days, scale back insulin further (7) DIONE (acute kidney injury): Plan: Cr 0.98 K up to 4.6, no supplement Mag is 2.0 Admission and Anticipated Discharge Date Admission Date: March 24, 2021 Subjective patient doing better each day, no dyspnea, no distress, laying supine eating well, sleeping well, no fever, no chest pain, no abdominal pain Cr is 0.98 and K is 4.6, Mag 2.0 will give another dose of Lasix 20mg IV this morning down to 25L and 55%, turned down further to 50% EKG with sinus bradycardia, 59, on the monitor she is in the 70's needs to move her bowels, will place a bedside commode and she knows to ring for the aide Review of Systems Review of Systems: All systems reviewed & are unremarkable except as noted in Subjective Physical Exam Constitutional: well developed and comfortable; no acute distress Neck: trachea midline, no thyromegaly Respiratory: normal respiratory effort and + cough; no respiratory distress, no labored breathing, does not use accessory muscles and not tachypneic Auscultation: no crackles, no rales, no rhonchi and no wheezes Cardiovascular: RRR, no murmur, no edema Gastrointestinal (Abdomen): normal bowel sounds, soft, nontender, no hepatosplenomegaly Musculoskeletal: no cyanosis or clubbing, extremities motor strength 5/5 Skin: no rashes, warm and dry Neurologic: CN's II-XI intact bilaterally, normal sensation to monofilament, moves all extremities and awake; no focal motor deficits Psychiatric: Orientation: alert and oriented x 3 Affect: + flat affect Results & Data Results & Data ([facility]) Vital Signs (Past 12 Hours) Vital Signs Temp Pulse Pulse Resp BP Pulse Ox 03/30/21 07:25 36.6 C 75 21 108/66 94 03/30/21 07:00 55 L 03/30/21 03:28 36.5 C 46 L 20 137/84 98 03/30/21 02:06 44 L 20 97 03/29/21 23:44 36.7 C 46 L 17 113/75 97 Laboratory Results Laboratory Results - last 24 hr 03/29/21 03/29/21 03/29/21 11:44 16:58 20:32 Sodium Potassium Chloride Carbon Dioxide Anion Gap BUN Creatinine Est Cr Clr Drug Dosing Est GFR ( Amer) Est GFR (Non-Af Amer) BUN/Creatinine Ratio Glucose POC Glucose 186 H 284 H 251 H Calcium Magnesium 03/30/21 03/30/21 03/30/21 00:05 04:53 05:42 Sodium 139 Potassium 4.6 Chloride 104 Carbon Dioxide 29 Anion Gap 6.0 BUN 32 H Creatinine 0.98 Est Cr Clr Drug Dosing 79.6 Est GFR ( Amer) 79.1 Est GFR (Non-Af Amer) 68.2 BUN/Creatinine Ratio 33.1 H Glucose 81 POC Glucose 163 H 92 Calcium 9.2 Magnesium 2.0 03/30/21 03/30/21 03/30/21 07:52 07:53 08:14 Sodium Potassium Chloride Carbon Dioxide Anion Gap BUN Creatinine Est Cr Clr Drug Dosing Est GFR ( Amer) Est GFR (Non-Af Amer) BUN/Creatinine Ratio Glucose POC Glucose 57 L* 56 L* 54 L* Calcium Magnesium 03/30/21 09:04 Sodium Potassium Chloride Carbon Dioxide Anion Gap BUN Creatinine Est Cr Clr Drug Dosing Est GFR ( Amer) Est GFR (Non-Af Amer) BUN/Creatinine Ratio Glucose POC Glucose 148 H Calcium Magnesium Medications Administered Current Inpatient Medications Acetaminophen (Acetaminophen 325 Mg Tab) 650 mg PO Q4H PRN PRN Reason: Pain or Fever Stop: 04/23/21 16:50 Last Admin: 03/29/21 18:17 Dose: 650 mg Documented by: Albuterol (Albuterol 0.5% Neb Soln 2.5 Mg/0.5 Ml Vial) 2.5 mg NEB Q6R PRN PRN Reason: Wheezing Stop: 04/23/21 18:59 Azithromycin (Azithromycin 250 Mg Tab) 250 mg PO QAM [facility] Stop: 04/01/21 08:59 Last Admin: 03/30/21 09:07 Dose: 250 mg Documented by: Dextrose (Dextrose 50% 50 Ml Syringe) 25 - 50 ml IV UD PRN; Protocol PRN Reason: Hypoglycemia Protocol Stop: 04/23/21 16:50 Diazepam (Diazepam 2 Mg Tablet) 2 mg PO QID PRN PRN Reason: Muscle Spasm Stop: 04/23/21 16:50 Divalproex Sodium (Divalproex Delay Release 500 Mg Tab) 500 mg PO BID [facility] Stop: 04/23/21 20:59 Last Admin: 03/30/21 09:07 Dose: 500 mg Documented by: Enoxaparin Sodium (Enoxaparin Inj 40 Mg/0.4 Ml Syr) 40 mg SQ Q12H [facility] Stop: 04/23/21 20:59 Last Admin: 03/30/21 09:09 Dose: 40 mg Documented by: Glucagon (Glucagon For Inj 1 Mg Vial) 1 mg SQ UD PRN; Protocol PRN Reason: Hypoglycemia Protocol Stop: 04/23/21 16:50 Glucose (Glucose 10 Tabs/Tube) 4 - 8 tabs PO UD PRN; Protocol PRN Reason: Hypoglycemia Protocol Stop: 04/23/21 16:50 Glucose (Glucose 40% Gel 15 Gm Tube) 15 - 30 gm PO UD PRN; Protocol PRN Reason: Hypoglycemia Protocol Stop: 04/23/21 16:50 Dexamethasone 10 mg/ Syringe 2.5 mls @ 1 mls/min IV DAILY [facility] Stop: 04/04/21 08:59 Last Admin: 03/30/21 09:09 Dose: 1 mls/min Documented by: Furosemide 20 mg/ Syringe 2 mls @ 4 mls/min IV ONE ONE Stop: 03/30/21 10:50 Insulin Aspart (Insulin Aspart 100 Units/Ml 3 Ml Pen) 0 units SC AC [facility] Stop: 04/29/21 11:29 Insulin Aspart (Insulin Aspart 100 Units/Ml 3 Ml Pen) 0 units SC HS [facility] Stop: 04/29/21 20:59 Insulin Human NPH (Insulin Human Nph) 65 units SC QAM [facility] Stop: 04/29/21 08:59 Last Admin: 03/30/21 09:10 Dose: 65 units Documented by: Miscellaneous (Carbohydrates For Hypoglycemia ) 15 - 30 gm PO UD PRN PRN Reason: Hypoglycemia Protocol Stop: 04/23/21 16:50 Last Admin: 03/30/21 08:03 Dose: 15 gm Documented by: Miscellaneous Information (Pharmacy Glycemic Mgmt Consult) 1 ea N/A UD PRN PRN Reason: Consult Stop: 04/24/21 07:49 Ondansetron HCl (Ondansetron Inj 2 Mg/Ml 2 Ml Vial) 4 mg IV Q6H PRN PRN Reason: Nausea Stop: 04/23/21 16:50 Polyethylene Glycol (Polyethylene (Miralax) 17 Gm Pack) 17 gm PO DAILY [facility] Stop: 04/27/21 09:29 Last Admin: 03/30/21 09:10 Dose: Not Given Documented by: Simvastatin (Simvastatin 20 Mg Tab) 20 mg PO HS [facility] Stop: 04/23/21 20:59 Last Admin: 03/29/21 21:23 Dose: 20 mg Documented by: PG Care Time/CCT Total # of Minutes Spent Total Time Spent with Patient: Total time spent is greater than 50% in coordination of care (as documented) at patient's floor/unit and/or counseling patient: Coding Level of Care Code 70959 Subseq Hosp Care Lvl 3 Diagnoses COVID-19 U07.1 Acute respiratory failure with hypoxia J96.01 Bacterial pneumonia J15.9 Seizure R56.9 HLD (hyperlipidemia) E78.5 DMII (diabetes mellitus, type 2) E11.9 DIONE (acute kidney injury) N17.9
[2021-03-30] MEDS ORDERED: FUROSEMIDE 40 MG/4 ML VIAL IV SCH (11:00)
--- NOTE | 2021-03-30 12:18 | Electrocardiogram Report ---
Test Reason : Blood Pressure : / mmHG Vent. Rate : 059 BPM Atrial Rate : 059 BPM P-R Int : 150 ms QRS Dur : 082 ms QT Int : 454 ms P-R-T Axes : 052 061 048 degrees QTc Int : 449 ms Sinus bradycardia Otherwise normal ECG When compared with ECG of 24-MAR-2021 13:55, Premature ventricular complexes are no longer Present Non-specific change in ST segment in Inferior leads Nonspecific T wave abnormality has replaced inverted T waves in Inferior leads Confirmed by Vazquez Silver ([id number] on 03/30/2021 12:17:52 PM Referred By: REFERRED SELF Confirmed By:Juaquin Silver
[2021-03-30] MEDS: SIMVASTATIN 20 MG TAB PO SCH (20:22)
[2021-03-31] MEDS ORDERED: INSULIN GLARGINE SOLOSTAR 100 UNITS/ML 3 ML PEN SC SCH (09:00)
[2021-03-31] MEDS: dexAMETHasone 6 MG in SYRINGE 0 ML IV SCH (09:11)
[2021-03-31] MEDS: DIVALPROEX DELAY RELEASE 500 MG TAB PO SCH ×2 (09:12→21:04)
[2021-03-31] MEDS: AZITHROMYCIN 250 MG TAB PO SCH (09:12)
[2021-03-31] MEDS: ENOXAPARIN INJ 40 MG/0.4 ML SYR SQ SCH ×2 (09:12→21:04)
[2021-03-31] MEDS: INSULIN ASPART 100 UNITS/ML 3 ML PEN SC SCH ×4 (09:15→21:05)
[2021-03-31] MEDS: POLYETHYLENE (MIRALAX) 17 GM PACK PO SCH (09:17)
[2021-03-31] MEDS: INSULIN HUMAN NPH SC SCH (09:17)
--- NOTE | 2021-03-31 10:49 | Pharmacy Report ---
Pharmacy Glycemic Short Note 2 - Date of Service March 31, 2021 - Glycemic Short BSG Results (Last 24 hours): 03/30/21 03/30/21 03/30/21 11:52 16:54 16:55 POC Glucose 198 H 332 H* 342 H* 03/30/21 03/30/21 03/31/21 20:10 20:13 04:12 POC Glucose 324 H* 324 H* 143 H 03/31/21 07:54 POC Glucose 93 OUTPATIENT ANTIDIABETIC REGIMEN: * Glimepiride 1mg PO daily * Metformin 1000mg PO BID * A1C: 9.7% ASSESSMENT: 03/31/21 * Patient's BSGs yesterday were [phone] * Patient received 158 units of insulin (80 units of basal and 78 units of bolus). * Fasting today is 93 mg/dL. Continue Lantus. * Dexamethasone decreased from 10 mg to 6 mg. Continue NPH. * Tighten Novolog CF/CR as uncertain how much decrease in steroids will affect patient. 03/30/21 * Patient's BSGs yesterday were [phone] and overnight were 163-92 mg/dL. Fasting today was 54 mg/dL. * For hypoglycemia with fasting BSG --- could be a combination of Lantus plus aggressive correction factor at HS. Patient received 10 units at bedtime. Will reduce Lantus by 50% as this was a second hypoglycemic even in AM. Loosen CF from 12 to 30 mg/dL at bedtime. * Increase NPH as BSGs severely elevated throughout the day. Tighten CR. 03/29/21: * Patient's AM fasting low today at 61 mg/dL after 35 units of lantus yesterday. Post prandials elevated yesterday with 45 units of NPH on board. * Will decrease lantus dose (and administer at lunchtime) and increase NPH to better cover post prandial BSGs. If post prandials remain elevated can consider tightening NovoLog scale further tomorrow. Patient continues on dex and is tolerating a diet. 03/27: * Patient was successfully transferred off of the infusion this morning. Pt rece ived 45 units of lantus, 40 units NPH, and 24 units of novolog in addition to the infusion running ~3.3 unit/hr yesterday. * Will monitor today's BSG trends off of the infusion to get a better assessment of true needs. * Patient continues on IV steroids and is tolerating a diet. 03/26: * Patient did require an insulin infusion yesterday for persistent hyperglycemia. BSGs downtrended nicely this morning and an attempt was made to transition off of the infusion. Despite high stress Lantus/ NovoLog and 0.45 unit/kg NPH, the insulin infusion rate remains at 3.3 units/hr X 6 hours post SQ basal insulin. will order another dose of Lantus at dinner and continue infusion, with hope of possibly transitioning off later this evening. After speaking with nurse there was concern for some occlusion of the line where insulin was infusing, however patient does have new IV site. Will continue to monitor trends. * Patient continues on IV steroids. She is order a diet, but only ate lunch thus far today. 03/25 * Patient hyperglycemic upon admission and BSGs only uptrended after the addition of IV dexamethasone. Upon consultation this morning a 0.4 unit/kg NPH and a 6 units IV insulin bolus were ordered in addition to tightening novolog scale. BSG remained over 300 at lunchtime despite this. Novolog was then changed to a full severe stress scale and lantus dose was ordered. An evening lantus scale and overnight novolog checks also added. * Will continue to monitor BSG trends, if BSG remains significantly elevated at dinner time, would consider initiation of an insulin infusion. Patient remains on IV dex and is tolerating a diet. PLAN FOR INPATIENT GLYCEMIC CONTROL: * Hold outpatient oral diabetes medications * Basal insulin * NPH 65 units qam * Lantus 15 units SQ AM * Bolus insulin * NovoLog per scale ACHS or Q6hrs while NPO and overnight checks * Goal Range: Low 110 mg/dL - High 140 mg/dL * Correction Factor: 10 mg/dL/unit (30 mg/dL/unit at bedtime) * Nutritional / Prandial insulin per carb ratio of 1 unit per 2 grams CHO consumed PLAN FOR DISCHARGE: * TBD
--- NOTE | 2021-03-31 11:48 | Hospitalist Progress Note ---
Date of Service March 31, 2021 Assessment & Plan (1) COVID-19: Plan: Unvaccinated ~day 10 of infection on admission evidence of pneumonia, hypoxia, also with diarrhea, DIONE on admission treated with dexamethasone 10mg IV daily until 03/30 decreased her to 6mg IV daily because she was doing so well and sugars have been very labile with the 10mg dose last day of steroids would be 04/02 Remdesivir x 5 days, completed Zithromax 250mg daily, 5 days completed no fever, Cr back to baseline, oxygen requirements down to 4-5L today use CPAP at night, she is compliant appetite is improved, eating 100% of meals, had a BM on 03/29 - Lovenox 40mg SUB q BID did give several doses of Lasix this week, no further Lasix needed remove allen 03/31 she is getting closer to discharge, might be ready by 04/02 if oxygen continues to come down like it is consider 2 step prior to discharge told her she needs to work on getting stronger the next 2-3 days, OOB in chair it is difficult for her to get motivated, her daughter just last week, her is planning the , she has been depressed (2) Acute respiratory failure with hypoxia: Plan: down to 4-5L today! was on Vapotherm all week prone positioning as often as tolerated CPAP HS for now as long as she is compliant gave several doses of Lasix this week, do not anticipate her needing more remove allen (3) Bacterial pneumonia: Plan: possible bacterial pneumonia completed Zithromax, 5 days total cough largely resolved, no sputum (4) Seizure: Plan: h/o seizure disorder Continue Valproic acid -seizure precautions, no issues thus far (5) HLD (hyperlipidemia): Plan: Not on medicine at home - diet controll (6) DMII (diabetes mellitus, type 2): Plan: Hold Metformin and glimepiride pharmacy consulted due to extremely labile sugars trying to blunt hyperglycemic effects with NPH but she still goes high in afternoon and 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 [employer] will reduce dexamethasone to 6mg IV today to try to reduce the hyperglycemia d/w pharmacist, she will adjust the Lantus and NPH accordingly continue to monitor closely last dose of steroids will be 04/02 so glucose control will be okay at home on her Metformin and glimepiride (7) DIONE (acute kidney injury): Plan: DIONE resolved quickly Cr 0.98 K up to 4.6, no supplement Mag is 2.0 Admission and Anticipated Discharge Date Admission Date: March 24, 2021 Subjective patient down to 5L, saturations 96%, turned her down to 4L no distress at all, eating well, no fever affect is still very flat due to loss of her daughter last week no labs today will take out allen, encouraged her to get up to chair today, need to make sure she is strong enough to go home discussed that I think Monday 04/02 would be reasonable time frame for discharge, should be close to being off oxygen next 2-3 days she needs to focus on getting stronger Review of Systems Review of Systems: All systems reviewed & are unremarkable except as noted in Subjective Constitutional: + fatigue and + weakness; no fever Respiratory: + dyspnea on exertion; no cough and no dyspnea Cardiovascular: no chest pain Psychiatric: + depression Physical Exam Constitutional: well developed and comfortable; no acute distress Neck: trachea midline, no thyromegaly Respiratory: normal respiratory effort; no respiratory distress, no labored breathing, does not use accessory muscles, no cough and not tachypneic Ausc ultation: no crackles, no rales, no rhonchi and no wheezes Cardiovascular: RRR, no murmur, no edema Gastrointestinal (Abdomen): normal bowel sounds, soft, nontender, no hepatosplenomegaly Musculoskeletal: no cyanosis or clubbing, extremities motor strength 5/5 Skin: no rashes, warm and dry Neurologic: CN's II-XI intact bilaterally, normal sensation to monofilament, moves all extremities and awake; no focal motor deficits Psychiatric: Orientation: alert and oriented x 3 Affect: + flat affect Results & Data Results & Data ([facility]) Vital Signs (Past 12 Hours) Vital Signs Temp Pulse Pulse Resp BP Pulse Ox 03/31/21 11:14 36.9 C 60 18 104/69 92 03/31/21 10:00 93 03/31/21 07:19 36.4 C L 82 21 104/67 90 03/31/21 07:00 55 L 03/31/21 04:02 36.8 C 48 L 22 114/74 96 03/31/21 02:37 49 L 21 92 Laboratory Results Laboratory Results - last 24 hr 03/30/21 03/30/21 03/30/21 11:52 16:54 16:55 POC Glucose 198 H 332 H* 342 H* 03/30/21 03/30/21 03/31/21 20:10 20:13 04:12 POC Glucose 324 H* 324 H* 143 H 03/31/21 07:54 POC Glucose 93 Medications Administered Current Inpatient Medications Acetaminophen (Acetaminophen 325 Mg Tab) 650 mg PO Q4H PRN PRN Reason: Pain or Fever Stop: 04/23/21 16:50 Last Admin: 03/29/21 18:17 Dose: 650 mg Documented by: Albuterol (Albuterol 0.5% Neb Soln 2.5 Mg/0.5 Ml Vial) 2.5 mg NEB Q6R PRN PRN Reason: Wheezing Stop: 04/23/21 18:59 Azithromycin (Azithromycin 250 Mg Tab) 250 mg PO QAM [facility] Stop: 04/01/21 08:59 Last Admin: 03/31/21 09:12 Dose: 250 mg Documented by: Dextrose (Dextrose 50% 50 Ml Syringe) 25 - 50 ml IV UD PRN; Protocol PRN Reason: Hypoglycemia Protocol Stop: 04/23/21 16:50 Diazepam (Diazepam 2 Mg Tablet) 2 mg PO QID PRN PRN Reason: Muscle Spasm Stop: 04/23/21 16:50 Divalproex Sodium (Divalproex Delay Release 500 Mg Tab) 500 mg PO BID [facility] Stop: 04/23/21 20:59 Last Admin: 03/31/21 09:12 Dose: 500 mg Documented by: Enoxaparin Sodium (Enoxaparin Inj 40 Mg/0.4 Ml Syr) 40 mg SQ Q12H [facility] Stop: 04/23/21 20:59 Last Admin: 03/31/21 09:12 Dose: 40 mg Documented by: Glucagon (Glucagon For Inj 1 Mg Vial) 1 mg SQ UD PRN; Protocol PRN Reason: Hypoglycemia Protocol Stop: 04/23/21 16:50 Glucose (Glucose 10 Tabs/Tube) 4 - 8 tabs PO UD PRN; Protocol PRN Reason: Hypoglycemia Protocol Stop: 04/23/21 16:50 Glucose (Glucose 40% Gel 15 Gm Tube) 15 - 30 gm PO UD PRN; Protocol PRN Reason: Hypoglycemia Protocol Stop: 04/23/21 16:50 Dexamethasone 6 mg/ Syringe 1.5 mls @ 1 mls/min IV DAILY [facility] Stop: 04/03/21 09:02 Last Admin: 03/31/21 09:11 Dose: 1 mls/min Documented by: Insulin Aspart (Insulin Aspart 100 Units/Ml 3 Ml Pen) 0 units SC AC [facility] Stop: 04/29/21 11:29 Last Admin: 03/31/21 09:15 Dose: 25 units Documented by: Insulin Aspart (Insulin Aspart 100 Units/Ml 3 Ml Pen) 0 units SC HS [facility] Stop: 04/29/21 20:59 Last Admin: 03/30/21 20:20 Dose: 7 units Documented by: Insulin Glargine (Insulin Glargine Solostar 100 Units/Ml 3 Ml Pen) 15 units SC DAILY [facility] Stop: 04/30/21 08:59 Last Admin: 03/31/21 09:13 Dose: 15 units Documented by: Insulin Human NPH (Insulin Human Nph) [facility] [place] Stop: 04/29/21 08:59 Last Admin: 03/31/21 09:17 Dose: 65 units Documented by: Miscellaneous (Carbohydrates For Hypoglycemia ) 15 - 30 gm PO UD PRN PRN Reason: Hypoglycemia Protocol Stop: 04/23/21 16:50 Last Admin: 03/30/21 08:03 Dose: 15 gm Documented by: Miscellaneous Information (Pharmacy Glycemic Mgmt Consult) 1 ea N/A UD PRN PRN Reason: Consult Stop: 04/24/21 07:49 Ondansetron HCl (Ondansetron Inj 2 Mg/Ml 2 Ml Vial) 4 mg IV Q6H PRN PRN Reason: Nausea Stop: 04/23/21 16:50 Polyethylene Glycol (Polyethylene (Miralax) 17 Gm Pack) 17 gm PO DAILY [facility] Stop: 04/27/21 09:29 Last Admin: 03/31/21 09:17 Dose: Not Given Documented by: Simvastatin (Simvastatin 20 Mg Tab) 20 mg PO HS [facility] Stop: 04/23/21 20:59 Last Admin: 03/30/21 20:22 Dose: 20 mg Documented by: PG Care Time/CCT Total # of Minutes Spent Total Time Spent with Patient: Total time spent is greater than 50% in coordination of care (as documented) at patient's floor/unit and/or counseling patient: Coding Level of Care Code 52807 Subseq Hosp Care Lvl 3 Diagnoses COVID-19 U07.1 Acute respiratory failure with hypoxia J96.01 Bacterial pneumonia J15.9 Seizure R56.9 HLD (hyperlipidemia) E78.5 DMII (diabetes mellitus, type 2) E11.9 DIONE (acute kidney injury) N17.9
[2021-03-31] MEDS: SIMVASTATIN 20 MG TAB PO SCH (21:03)
[2021-04-01] MEDS: CARBOHYDRATES FOR HYPOGLYCEMIA PO PRN (07:43)
[2021-04-01] MEDS: POLYETHYLENE (MIRALAX) 17 GM PACK PO SCH (08:38)
[2021-04-01] MEDS: DIVALPROEX DELAY RELEASE 500 MG TAB PO SCH ×2 (08:46→20:13)
[2021-04-01] MEDS: dexAMETHasone 6 MG in SYRINGE 0 ML IV SCH (08:46)
[2021-04-01] MEDS: INSULIN ASPART 100 UNITS/ML 3 ML PEN SC SCH ×4 (08:46→22:25)
[2021-04-01] MEDS: ENOXAPARIN INJ 40 MG/0.4 ML SYR SQ SCH ×2 (08:47→20:14)
[2021-04-01] MEDS ORDERED: INSULIN GLARGINE SOLOSTAR 100 UNITS/ML 3 ML PEN SC SCH (09:00)
[2021-04-01] MEDS ORDERED: INSULIN HUMAN NPH SC SCH (09:00)
[2021-04-01] MEDS ORDERED: PANTOprazole 40 MG TAB PO STA (09:56)
--- NOTE | 2021-04-01 11:27 | Pharmacy Report ---
Pharmacy Glycemic Short Note 2 - Date of Service April 01, 2021 - Glycemic Short BSG Results (Last 24 hours): 03/31/21 03/31/21 03/31/21 11:50 16:51 20:41 POC Glucose 183 H 97 86 04/01/21 04/01/21 04/01/21 07:41 07:43 08:09 POC Glucose 62 L* 60 L* 87 OUTPATIENT ANTIDIABETIC REGIMEN: * Glimepiride 1mg PO daily * Metformin 1000mg PO BID * A1C: 9.7% ASSESSMENT: 04/01/21: * Leyla received 178 units of insulin yesterday * 65 units NPH, 15 units Lantus, 98 units Novolog * BSGs were well controlled: 93, 180, 97, 86 * Fasting BSG of 87 mg/dL is at goal. Trending downward the past two days. * Will decrease Lantus by 20% * Post prandial BSGs are also trending down throughout the day. Yesterday dexamethasone dose was decreased from 10 mg IV to 6 mg daily. * Will slightly decrease NPH 03/31/21 * Patient's BSGs yesterday were [phone] * Patient received 158 units of insulin (80 units of basal and 78 units of bolus). * Fasting today is 93 mg/dL. Continue Lantus. * Dexamethasone decreased from 10 mg to 6 mg. Continue NPH. * Tighten Novolog CF/CR as uncertain how much decrease in steroids will affect patient. 03/30/21 * Patient's BSGs yesterday were [phone] and overnight were 163-92 mg/dL. Fasting today was 54 mg/dL. * For hypoglycemia with fasting BSG --- could be a combination of Lantus plus aggressive correction factor at HS. Patient received 10 units at bedtime. Will reduce Lantus by 50% as this was a second hypoglycemic even in AM. Loosen CF from 12 to 30 mg/dL at bedtime. * Increase NPH as BSGs severely elevated throughout the day. Tighten CR. 03/29/21: * Patient's AM fasting low today at 61 mg/dL after 35 units of lantus yesterday. Post prandials elevated yesterday with 45 units of NPH on board. * Will decrease lantus dose (and administer at lunchtime) and increase NPH to better cover post prandial BSGs. If post prandials remain elevated can consider tightening NovoLog scale further tomorrow. Patient continues on dex and is tolerating a diet. 03/27: * Patient was successfully transferred off of the infusion this morning. Pt received 45 units of lantus, 40 units NPH, and 24 units of novolog in addition to the infusion running ~3.3 unit/hr yesterday. * Will monitor today's BSG trends off of the infusion to get a better assessment of true needs. * Patient continues on IV steroids and is tolerating a diet. 03/26: * Patient did require an insulin infusion yesterday for persistent hyperglycemia. BSGs downtrended nicely this morning and an attempt was made to transition off of the infusion. Despite high stress Lantus/ NovoLog and 0.45 unit/kg NPH, the insulin infusion rate remains at 3.3 units/hr X 6 hours post SQ basal insulin. will order another dose of Lantus at dinner and continue infusion, with hope of possibly transitioning off later this evening. After speaking with nurse there was concern for some occlusion of the line where insulin was infusing, however patient does have new IV site. Will continue to monitor trends. * Patient continues on IV steroids. She is order a diet, but only ate lunch thus far today. 03/25 * Patient hyperglycemic upon admission and BSGs only uptrended after the addition of IV dexamethasone. Upon consultation this morning a 0.4 unit/kg NPH and a 6 units IV insulin bolus were ordered in addition to tightening novolog scale. BSG remained over 300 at lunchtime despite this. Novolog was then changed to a full severe stress scale and lantus dose was ordered. An evening lantus scale and overnight novolog checks also added. * Will continue to monitor BSG trends, if BSG remains significantly elevated at dinner time, would consider initiation of an insulin infusion. Patient remains on IV dex and is tolerating a diet. PLAN FOR INPATIENT GLYCEMIC CONTROL: * Hold outpatient oral diabetes medications * Basal insulin - decrease * NPH 55 units qam * Lantus 12 units SQ AM * Bolus insulin * NovoLog per scale ACHS or Q6hrs while NPO and overnight checks * Goal Range: Low 110 mg/dL - High 140 mg/dL * Correction Factor: 10 mg/dL/unit (30 mg/dL/unit at bedtime) * Nutritional / Prandial insulin per carb ratio of 1 unit per 2 grams CHO consumed (3 mg/dL/unit at bedtime) PLAN FOR DISCHARGE: * A1c of 9.7% (03/26/21) is above goal * Per CDE evaluation: Patient previously on insulin. This was stopped earlier this year due to cost. MA application is pending. If MA application is approved, consider discharge on: * Metformin + Lantus once daily + set dose of novolog with meals * d/c glimepiride If MA application is still pending at time of discharge, may consider: * Metformin + ReliOn/Novolin 70/30 BID before breakfast and dinner * d/c glimepiride If patient is discharged on orals only, recommend increasing glimepiride to 2 mg po daily
[2021-04-01] MEDS: metFORMIN HCL 500 MG TAB PO SCH (17:38)
[2021-04-01] MEDS: SIMVASTATIN 20 MG TAB PO SCH (20:14)
--- NOTE | 2021-04-01 20:58 | Hospitalist Progress Note ---
Date of Service April 01, 2021 Assessment & Plan (1) Acute respiratory failure with hypoxia: Plan: 2nd to severe COVID-19 pneumonia (+/- bacterial superinfection at time of admission). Resolving. Peak O2 requirement - HFNC, 40 L. Now down to NC o2 2 liters. 2-step ordered. Cont pulmonary toilet. (2) Pneumonia due to COVID-19 virus: Plan: Improved. Day #18/19 of illness. Day #9 of dexamethasone. s/p 5-day course of remdesivir. Check d-dimer in AM. If significantly elevated consider sending home with 30-day course of low-dose xarelto for VTE proph. Cont lovenox SC BID while here. Plan to set up with pulmonary as outpatient given severity of illness and NC O2 requirement at discharge. (3) DIONE (acute kidney injury): Plan: Resolved. Repeat BMP am to ensure stable creatinine. (4) HLD (hyperlipidemia): Plan: Cont statin. recent ast/alt wnl. (5) Diabetes mellitus type 2, uncontrolled: Plan: a1c near 10%. uncontrolled this admission 2nd to severity of illness as well as steroids. appreciate pharmacy assistance. resume metformin 1000mg BID. at discharge consider d/c amaryl and institute once daily lantus. (6) Seizure disorder: Plan: check depakote level AM. ast/alt wnl on last check. no seizures while here. (7) DVT prophylaxis: Plan: lovenox 40mg BID (8) Grieving: Plan: patient with severe sadness due to loss of her daughter. support and prayer offered to patient today. (9) Microcytosis: Plan: recommend check of Fe studies as outpatient at time of hospital f/u Plan: spoke with today; extensive update given hopeful for d/c home tomorrow depending on DM, 2-step, etc. Admission and Anticipated Discharge Date Admission Date: March 24, 2021 Subjective tele overnight wnl patient very tearful during my rounds due to recent of her daughter daughter had seizure d/o and was found at her home is at home planning her from pulmonary standpoint she continues with cough - mild sputum production - but no worse than previous NC O2 weaned to 2 liters today denies dyspnea at rest; residual MESA w/ activity no diarrhea eating well no chest pain hopeful for d/c home tomorrow Review of Systems Review of Systems: gen - no fevers or chills ENT - no loss of taste/smell CV - no pleuritic chest pain GI - no abd pain Physical Exam Physical Exam: gen - very tearful; NAD otherwise mouth - no thrush plaques neck - no JVD heart - RRR, s1, s2, no murmurs lungs - faint bibasilar fine rales; no wheeze; no increased work of breathing abd - soft NT ND BS+; no HSM ext - no edema vascular - pulses 2+ b/l Results & Data Results & Data ([facility]) Vital Signs (Past 12 Hours) Vital Signs Temp Pulse Pulse Resp BP Pulse Ox 04/01/21 19:17 36.9 C 78 18 115/78 90 04/01/21 15:24 37.0 C 78 25 H 101/66 93 04/01/21 15:00 77 04/01/21 12:23 92 04/01/21 11:08 36.6 C 86 20 104/61 89 L Laboratory Results Laboratory Results - last 24 hr 04/01/21 04/01/21 04/01/21 07:41 07:43 08:09 POC Glucose 62 L* 60 L* 87 04/01/21 04/01/21 11:37 16:32 POC Glucose 202 H 288 H PG Care Time/CCT Total # of Minutes Spent Total Time Spent with Patient: Total time spent is greater than 50% in coordination of care (as documented) at patient's floor/unit and/or counseling patient: Coding Level of Care Code 07292 Subseq Hosp Care Lvl 3 Diagnoses Acute respiratory failure with hypoxia J96.01 Pneumonia due to COVID-19 virus U07.1; J12.82 DIONE (acute kidney injury) N17.9 HLD (hyperlipidemia) E78.5 Diabetes mellitus type 2, uncontrolled E11.65 Seizure disorder G40.909 DVT prophylaxis Z29.9 Grieving F43.21 Microcytosis R71.8
[2021-04-02 06:11] LABS: Hematocrit (blood only) 33.4 % (37-47); Hemoglobin 10.9 g/dL (12.0-16.0); Mean Corpuscular Hemoglobin 26.1 pg (25-34); Mean Corpuscular Hgb Conc 32.6 g/dL (32-36); Mean Corpuscular Volume 80.1 fL (80-100); Mean Platelet Volume 9.5 fL (7.4-10.4); Platelet Count 670 K/uL (130-400); RDW Standard Deviation 49.4 fL (36.4-46.3); Red Blood Count 4.17 M/uL (4.2-5.4); White Blood Count 11.85 K/uL (4.8-10.8)
[2021-04-02 06:45] LABS: Basophils # (auto) 0.03 K/uL (0-0.2); Basophils % (auto) 0.3 %; Eosinophils # (auto) 0.05 K/uL (0-0.5); Eosinophils % (auto) 0.4 %; Immature Granulocytes # (auto) 0.72 K/uL (0.00-0.02); Immature Granulocytes % (auto) 6.1 %; Lymphocytes # (auto) 3.67 K/uL (1.2-3.4); Monocytes # (auto) 0.92 K/uL (0.11-0.59); Monocytes % (auto) 7.8 %; Neutrophils # (auto) 6.46 K/uL (1.4-6.5); Neutrophils % (auto) 54.4 %
[2021-04-02 06:54] LABS: D Dimer 500 ug/L FEU (0-500)
[2021-04-02 06:59] LABS: BUN Creatinine Ratio 24.1 (10-20); Calcium 8.7 mg/dl (8.5-10.1); Creatinine Clr Calc Pharmacy 70.2 ml/min; Est GFR (African American) 66.6 ml/min; Est GFR (Non-African American) 57.4 ml/min; Potassium 4.2 mmol/L (3.5-5.1)
[2021-04-02] MEDS: CARBOHYDRATES FOR HYPOGLYCEMIA PO PRN ×2 (07:16→07:30)
[2021-04-02] MEDS: POLYETHYLENE (MIRALAX) 17 GM PACK PO SCH (08:11)
[2021-04-02] MEDS ORDERED: INSULIN HUMAN NPH SC SCH ×2 (09:00)
[2021-04-02] MEDS: INSULIN ASPART 100 UNITS/ML 3 ML PEN SC SCH ×4 (09:18→22:37)
[2021-04-02] MEDS: INSULIN GLARGINE SOLOSTAR 100 UNITS/ML 3 ML PEN SC SCH (09:22)
[2021-04-02] MEDS: dexAMETHasone 6 MG in SYRINGE 0 ML IV SCH (09:22)
[2021-04-02] MEDS: metFORMIN HCL 500 MG TAB PO SCH ×2 (09:22→18:06)
[2021-04-02] MEDS: PANTOprazole 40 MG TAB PO SCH (09:23)
[2021-04-02] MEDS: ENOXAPARIN INJ 40 MG/0.4 ML SYR SQ SCH ×2 (09:23→21:56)
[2021-04-02] MEDS: DIVALPROEX DELAY RELEASE 500 MG TAB PO SCH ×2 (09:23→21:56)
[2021-04-02] MEDS ORDERED: SODIUM CHLORIDE 0.9% 1000ML 500 ML IV ONE (10:28)
--- NOTE | 2021-04-02 10:55 | Pharmacy Report ---
Pharmacy Glycemic Short Note 2 - Date of Service April 02, 2021 - Glycemic Short BSG Results (Last 24 hours): 04/01/21 04/01/21 04/01/21 11:37 16:32 21:08 Glucose POC Glucose 202 H 288 H 147 H 04/02/21 04/02/21 04/02/21 05:20 07:12 07:12 Glucose 64 L POC Glucose 56 L* 57 L* 04/02/21 04/02/21 04/02/21 07:28 07:28 07:52 Glucose POC Glucose 66 L* 68 L* 95 OUTPATIENT ANTIDIABETIC REGIMEN: * Glimepiride 1mg PO daily * Metformin 1000mg PO BID * A1C: 9.7% ASSESSMENT: 04/02/21: * AM fasting BSG with severe low at 57 mg/dL. Also - anticipated discharge today and avoiding a severe low while unmonitored at home will be important. Therefore will reduce both NPH and Lantus * Post-prandial BSG's elevated for 2 of 3 checks yesterday, however started metformin yesterday PM which may decrease prandial insulin needs. Due to significant prandial insulin requirements will not completely eliminate CHO ratio, but will loosen significantly. This may need to be re-adjusted (increase or decrease) depending on trend in BSG * BSG increased substantially at lunch. Tightened CHO ratio slightly 04/01/21: * Leyla received 178 units of insulin yesterday * 65 units NPH, 15 units Lantus, 98 units Novolog * BSGs were well controlled: 93, 180, 97, 86 * Fasting BSG of 87 mg/dL is at goal. Trending downward the past two days. * Will decrease Lantus by 20% * Post prandial BSGs are also trending down throughout the day. Yesterday dexamethasone dose was decreased from 10 mg IV to 6 mg daily. * Will slightly decrease NPH 03/31/21 * Patient's BSGs yesterday were [phone] * Patient received 158 units of insulin (80 units of basal and 78 units of bolus). * Fasting today is 93 mg/dL. Continue Lantus. * Dexamethasone decreased from 10 mg to 6 mg. Continue NPH. * Tighten Novolog CF/CR as uncertain how much decrease in steroids will affect patient. PLAN FOR INPATIENT GLYCEMIC CONTROL: * Hold outpatient oral diabetes medications * Basal insulin - decrease * NPH 35 units qam * Lantus 10 units SQ AM * Bolus insulin - loosen * NovoLog per scale ACHS or Q6hrs while NPO and overnight checks * Goal Range: Low 110 mg/dL - High 140 mg/dL * Correction Factor: 15 mg/dL/unit (30 mg/dL/unit at bedtime) * Nutritional / Prandial insulin per carb ratio of 1 unit per 4 grams CHO consumed (7 mg/dL/unit at bedtime) PLAN FOR DISCHARGE: * A1c of 9.7% (03/26/21) is above goal * Per CDE evaluation: Patient previously on insulin. This was stopped earlier this year due to cost. MA application is pending. * Note - inpatient requirement/regimen will not be reliable to determine outpatient needs to due significant steroid sensitivity while inpatient. Early outpatient follow-up for ongoing titration of insulin doses will be required If MA application is approved, consider discharge on: * Metformin + Lantus once daily + set dose of Novolog with meals * d/c glimepiride If MA application is still pending at time of discharge, may consider: * Metformin + ReliOn/Novolin 70/30 BID before breakfast and dinner * d/c glimepiride If patient is discharged on orals only, recommend increasing glimepiride to 2 mg po daily PRESCRIPTIONS NEEDED AT DISCHARGE: If MA approved prior to discharge, 1.) Lantus Solostar pen. 2.) Novolog Flexpen. 3.) Pen [place] 32 gauge x 5/32". If MA still pending or denied, 1.) *ReliOn/Novolin-N 70/30 Flexpen. 2.) Pen [place] 32 gauge x 5/32" *written prescription to take to [facility] or write in instructions ReliOn brand
[2021-04-02] MEDS: MIDODRINE HCL 2.5 MG TAB PO SCH ×2 (13:00→18:06)
--- NOTE | 2021-04-02 20:54 | Hospitalist Progress Note ---
Date of Service April 02, 2021 Assessment & Plan (1) Orthostatic hypotension: Plan: fairly dramatic drop in BP today as documented (50 points) with rapid rise in HR from 60 to 120 with simply standing. BPs improved following NS bolus and institution of midodrine 2.5mg TID. late in the day her orthostatics were better but her HRs still with large rise. 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 may need low-dose BB but defer. plan - cont midodrine repeat orthos in am obtain limited echo in am to assess LV function repeat troponin in am to r/o any myocarditis component may need cardiology f/u post-d/c for this issue doubt adrenal insuff and checking random cortisol would be unhelpful given 10+ days of steroid use (2) Acute respiratory failure with hypoxia: Plan: 2nd to severe COVID-19 pneumonia (+/- bacterial superinfection at time of admission). Resolving. Peak O2 requirement - HFNC, 40 L. Now down to NC o2 2 liters. 2-step ordered. needs 2 L NC at rest; 4 L with activity. Cont pulmonary toilet. [place] [facility] to follow her recovery from COVID. (3) Pneumonia due to COVID-19 virus: Plan: Improved. Day #19/20 of illness. Can likely remove isolation next 1-2 days. Stop dexamethasone tomorrow. s/p 5-day course of remdesivir. Although dimer is not elevated, consider low-dose xarelto for 30 days post-d/c to decrease her chances of VTE. Cont lovenox SC BID while here. Plan to set up with pulmonary as outpatient given severity of illness and NC O2 requirement at discharge. (4) DIONE (acute kidney injury): Plan: Resolved. Repeat BMP stable today. (5) HLD (hyperlipidemia): Plan: Cont statin. recent ast/alt wnl. (6) Diabetes mellitus type 2, uncontrolled: Plan: a1c near 10%. uncontrolled this admission 2nd to severity of illness as well as steroids. appreciate pharmacy assistance. resumed metformin 1000mg BID yesterday. at discharge would d/c amaryl and institute once daily lantus. (7) Seizure disorder: Plan: depakote level therapeutic today. ast/alt wnl on last check. no seizures while here. (8) DVT prophylaxis: Plan: lovenox 40mg BID (9) Grieving: Plan: patient with severe sadness due to loss of her daughter. support offered once again to patient. (10) Microcytosis: Plan: recommend check of Fe studies as outpatient at time of hospital f/u Plan: spoke with yesterday; extensive update given at that time left message for tonight. no discharge today due to #1. hopeful for d/c home tomorrow depending on orthostatics, etc Admission and Anticipated Discharge Date Admission Date: March 24, 2021 Subjective patient was attempting to perform 2-step ambulatory O2 test early this am about 0800 and had significant dizziness/lightheadedness and was unable to complete the test orthostatics were taken and supine systolic BP was 143, falling to 90 with standing; corresponding pulse went from 59 with supine and up to 120 with standing NS bolus 500cc x 1 given midodrine started repeat orthos later in the day were improved with only a 10 point drop in BP, but HR still dramatic change going from 60 to >100 with just positional change patient reports dizziness only during her COVID illness has not had dizzy/lightheaded spells in the past she otherwise feels ok today anxious to get home she is coughing with minimal sputum 2-step showed -- needs 2 L at rest, 4 L w/ activity agreeable to once daily lantus at discharge for DM - was on such in the past dx age 34 with DM tele overnight wnl otherwise feeling ok Review of Systems Constitutional: + fatigue; no fever, no chills and no anorexia Respiratory: no wheezing Cardiovascular: no chest pain, no dyspnea at rest, no dyspnea on exertion and no orthopnea Gastrointestinal: no abdominal pain, no nausea, no vomiting and no diarrhea/loose stools Physical Exam Physical Exam: gen - sitting in chair, looks better today mouth - no thrush plaques, MMM neck - no JVD heart - RRR, s1, s2, no murmurs lungs - faint bibasilar fine rales - no change; no wheeze; no increased work of breathing abd - soft NT ND BS+; no HSM ext - no edema vascular - pulses 2+ b/l skin - normal turgor psych - affect more full today; not as tearful as yesterday Results & Data Results & Data ([facility]) Vital Signs (Past 12 Hours) Vital Signs Temp Pulse Pulse Pulse Pulse Pulse Pulse 04/02/21 19:24 36.8 C 04/02/21 16:23 36.7 C 04/02/21 15:31 04/02/21 15:00 78 04/02/21 11:42 36.9 C 04/02/21 10:28 102 H 102 H 128 H 101 H 123 H Pulse Pulse Pulse Resp Resp Resp Resp 04/02/21 19:24 75 20 04/02/21 16:23 77 18 04/02/21 15:31 04/02/21 15:00 04/02/21 11:42 100 H 18 04/02/21 10:28 105 H 103 H 18 19 19 Resp Resp Resp Resp BP BP Pulse Ox 04/02/21 19:24 122/64 93 04/02/21 16:23 113/66 97 04/02/21 15:31 94 04/02/21 15:00 04/02/21 11:42 116/67 93 04/02/21 10:28 19 18 19 18 Pulse Ox Pulse Ox Pulse Ox Pulse Ox Pulse Ox Pulse Ox Pulse Ox 04/02/21 19:24 04/02/21 16:23 04/02/21 15:31 04/02/21 15:00 04/02/21 11:42 04/02/21 10:28 86 L 90 87 L 90 86 L 90 85 L Laboratory Results Laboratory Results - last 24 hr 04/01/21 04/02/21 04/02/21 21:08 05:20 05:20 WBC 11.85 H RBC 4.17 L Hgb 10.9 L Hct 33.4 L MCV 80.1 MCH 26.1 MCHC 32.6 RDW Std Deviation 49.4 H RDW Coeff of Willis 17.0 H Plt Count 670 H MPV 9.5 Immature Gran % (Auto) 6.1 Neut % (Auto) 54.4 Lymph % (Auto) 31.0 [place] % (Auto) 7.8 Eos % (Auto) 0.4 Baso % (Auto) 0.3 Neut # (Auto) 6.46 Lymph # (Auto) 3.67 H [place] # (Auto) 0.92 H Eos # (Auto) 0.05 Baso # (Auto) 0.03 Immature Gran # (Auto) 0.72 H D-Dimer 500 Sodium Potassium Chloride Carbon Dioxide Anion Gap BUN Creatinine Est Cr Clr Drug Dosing Est GFR ( Amer) Est GFR (Non-Af Amer) BUN/Creatinine Ratio Glucose POC Glucose 147 H Calcium Valproic Acid 04/02/21 04/02/21 04/02/21 05:20 05:20 07:12 WBC RBC Hgb Hct MCV MCH MCHC RDW Std Deviation RDW Coeff of Willis Plt Count MPV Immature Gran % (Auto) Neut % (Auto) Lymph % (Auto) [place] % (Auto) Eos % (Auto) Baso % (Auto) Neut # (Auto) Lymph # (Auto) [place] # (Auto) Eos # (Auto) Baso # (Auto) Immature Gran # (Auto) D-Dimer Sodium 137 Potassium 4.2 Chloride 102 Carbon Dioxide 30 Anion Gap 5.0 BUN 27 H Creatinine 1.13 Est Cr Clr Drug Dosing 70.2 Est GFR ( Amer) 66.6 Est GFR (Non-Af Amer) 57.4 BUN/Creatinine Ratio 24.1 H Glucose 64 L POC Glucose 56 L* Calcium 8.7 Valproic Acid 84 04/02/21 04/02/21 04/02/21 07:12 07:28 07:28 WBC RBC Hgb Hct MCV MCH MCHC RDW Std Deviation RDW Coeff of Willis Plt Count MPV Immature Gran % (Auto) Neut % (Auto) Lymph % (Auto) [place] % (Auto) Eos % (Auto) Baso % (Auto) Neut # (Auto) Lymph # (Auto) [place] # (Auto) Eos # (Auto) Baso # (Auto) Immature Gran # (Auto) D-Dimer Sodium Potassium Chloride Carbon Dioxide Anion Gap BUN Creatinine Est Cr Clr Drug Dosing Est GFR ( Amer) Est GFR (Non-Af Amer) BUN/Creatinine Ratio Glucose POC Glucose 57 L* 66 L* 68 L* Calcium Valproic Acid 04/02/21 04/02/21 04/02/21 07:52 11:42 16:36 WBC RBC Hgb Hct MCV MCH MCHC RDW Std Deviation RDW Coeff of Willis Plt Count MPV Immature Gran % (Auto) Neut % (Auto) Lymph % (Auto) [place] % (Auto) Eos % (Auto) Baso % (Auto) Neut # (Auto) Lymph # (Auto) [place] # (Auto) Eos # (Auto) Baso # (Auto) Immature Gran # (Auto) D-Dimer Sodium Potassium Chloride Carbon Dioxide Anion Gap BUN Creatinine Est Cr Clr Drug Dosing Est GFR ( Amer) Est GFR (Non-Af Amer) BUN/Creatinine Ratio Glucose POC Glucose 95 229 H 226 H Calcium Valproic Acid 04/02/21 20:52 WBC RBC Hgb Hct MCV MCH MCHC RDW Std Deviation RDW Coeff of Willis Plt Count MPV Immature Gran % (Auto) Neut % (Auto) Lymph % (Auto) [place] % (Auto) Eos % (Auto) Baso % (Auto) Neut # (Auto) Lymph # (Auto) [place] # (Auto) Eos # (Auto) Baso # (Auto) Immature Gran # (Auto) D-Dimer Sodium Potassium Chloride Carbon Dioxide Anion Gap BUN Creatinine Est Cr Clr Drug Dosing Est GFR ( Amer) Est GFR (Non-Af Amer) BUN/Creatinine Ratio Glucose POC Glucose Pending Calcium Valproic Acid PG Care Time/CCT Total # of Minutes Spent Total Time Spent with Patient: Total time spent is greater than 50% in coordination of care (as documented) at patient's floor/unit and/or counseling patient: Coding Level of Care Code 33556 Subseq Hosp Care Lvl 3 Diagnoses Acute respiratory failure with hypoxia J96.01 Pneumonia due to COVID-19 virus U07.1; J12.82 DIONE (acute kidney injury) N17.9 HLD (hyperlipidemia) E78.5 Diabetes mellitus type 2, uncontrolled E11.65 Seizure disorder G40.909 DVT prophylaxis Z29.9 Grieving F43.21 Microcytosis R71.8 Orthostatic hypotension I95.1
[2021-04-02] MEDS: SIMVASTATIN 20 MG TAB PO SCH (21:56)
[2021-04-03 06:22] LABS: Platelet Count 631 K/uL (130-400)
[2021-04-03] MEDS: CARBOHYDRATES FOR HYPOGLYCEMIA PO PRN (08:26)
[2021-04-03] MEDS: dexAMETHasone 6 MG in SYRINGE 0 ML IV SCH (08:29)
[2021-04-03] MEDS: metFORMIN HCL 500 MG TAB PO SCH (08:29)
[2021-04-03] MEDS: MIDODRINE HCL 2.5 MG TAB PO SCH ×2 (08:29→12:26)
[2021-04-03] MEDS: PANTOprazole 40 MG TAB PO SCH (08:30)
[2021-04-03] MEDS: ENOXAPARIN INJ 40 MG/0.4 ML SYR SQ SCH (08:30)
[2021-04-03] MEDS: DIVALPROEX DELAY RELEASE 500 MG TAB PO SCH (08:30)
[2021-04-03] MEDS: POLYETHYLENE (MIRALAX) 17 GM PACK PO SCH (08:31)
[2021-04-03] MEDS: INSULIN ASPART 100 UNITS/ML 3 ML PEN SC SCH ×2 (08:43→12:32)
[2021-04-03] MEDS: INSULIN GLARGINE SOLOSTAR 100 UNITS/ML 3 ML PEN SC SCH (08:44)
--- NOTE | 2021-04-03 11:58 | Pharmacy Report ---
Pharmacy Glycemic Short Note 2 - Date of Service April 03, 2021 - Glycemic Short BSG Results (Last 24 hours): 04/02/21 04/02/21 04/03/21 16:36 20:52 08:10 POC Glucose 226 H 145 H 64 L* 04/03/21 04/03/21 08:11 08:51 POC Glucose 58 L* 85 OUTPATIENT ANTIDIABETIC REGIMEN: * Glimepiride 1mg PO daily * Metformin 1000mg PO BID * A1C: 9.7% ASSESSMENT: 04/03/21 * Despite significant lowering of basal insulin yesterday, persistent severe hypoglycemia noted this AM. Will eliminate NPH all together. Today is also the last day of steroids so patient will not need ongoing NPH * OK to leave Novolog as-is for now, but will loosen tomorrow as steroids will be omitted at that point 04/02/21: * AM fasting BSG with severe low at 57 mg/dL. Also - anticipated discharge today and avoiding a severe low while unmonitored at home will be important. Therefore will reduce both NPH and Lantus * Post-prandial BSG's elevated for 2 of 3 checks yesterday, however started metformin yesterday PM which may decrease prandial insulin needs. Due to significant prandial insulin requirements will not completely eliminate CHO ratio, but will loosen significantly. This may need to be re-adjusted (increase or decrease) depending on trend in BSG * BSG increased substantially at lunch. Tightened CHO ratio slightly 04/01/21: * Leyla received 178 units of insulin yesterday * 65 units NPH, 15 units Lantus, 98 units Novolog * BSGs were well controlled: 93, 180, 97, 86 * Fasting BSG of 87 mg/dL is at goal. Trending downward the past two days. * Will decrease Lantus by 20% * Post prandial BSGs are also trending down throughout the day. Yesterday dexamethasone dose was decreased from 10 mg IV to 6 mg daily. * Will slightly decrease NPH 03/31/21 * Patient's BSGs yesterday were [phone] * Patient received 158 units of insulin (80 units of basal and 78 units of bolus). * Fasting today is 93 mg/dL. Continue Lantus. * Dexamethasone decreased from 10 mg to 6 mg. Continue NPH. * Tighten Novolog CF/CR as uncertain how much decrease in steroids will affect patient. PLAN FOR INPATIENT GLYCEMIC CONTROL: * Metformin 1 g po BIDM * Basal insulin - decrease * Stop NPH * Lantus 10 units SQ AM * Bolus insulin - continue below for now, but will loosen tomorrow * NovoLog per scale ACHS or Q6hrs while NPO and overnight checks * Goal Range: Low 110 mg/dL - High 140 mg/dL * Correction Factor: 15 mg/dL/unit (30 mg/dL/unit at bedtime) * Nutritional / Prandial insulin per carb ratio of 1 unit per 4 grams CHO consumed (7 mg/dL/unit at bedtime) PLAN FOR DISCHARGE: * A1c of 9.7% (03/26/21) is above goal * Per CDE evaluation: Patient previously on insulin. This was stopped earlier this year due to cost. MA application is pending. * Note - inpatient requirement/regimen will not be reliable to determine outpatient needs to due significant steroid sensitivity while inpatient. Early outpatient follow-up for ongoing titration of insulin doses will be required If MA application is approved, consider discharge on: * Metformin + Lantus once daily + set dose of Novolog with meals * d/c glimepiride If MA application is still pending at time of discharge, may consider: * Metformin + ReliOn/Novolin 70/30 BID before breakfast and dinner * d/c glimepiride If patient is discharged on orals only, recommend increasing glimepiride to 2 mg po daily PRESCRIPTIONS NEEDED AT DISCHARGE: If MA approved prior to discharge, 1.) Lantus Solostar pen. 2.) Novolog Flexpen. 3.) Pen [place] 32 gauge x 5/32". If MA still pending or denied, 1.) *ReliOn/Novolin-N 70/30 Flexpen. 2.) Pen [place] 32 gauge x 5/32" *written prescription to take to [facility] or write in instructions ReliOn brand
--- NOTE | 2021-04-03 13:51 | Discharge Summary ---
Date of Service date of admission - March 24, 2021 date of discharge - April 03, 2021 Admission HPI Per Admitting Provider 50 YOF with past medical history of: DMII, HTN, HLD, Seizures (on valproic acid). Patient comes in today for complaints of nausea, vomitting, and increase in fever and dyspnea. The patient is COVID positive and is not vaccinated. She feels that she contracted the virus at work as many of her co-workers are sick. She states that she has not been feeling well for ~10 days, initially felt ok following the first few days of fevers, body aches, and diarrhea. Then got progressively worse in the last 2-3 days with increase in dyspnea and cough. In the EMD the patient had routine labs drawn, COVID test and CXR. She was hypoxic at 88% on room air and was placed on HFNC to maintain SPO2 >90%, she is currently on 25L of flow with FIo2 45%. Patient will be admitted for continual respiratory support and supportive care for her COVID 19 pneumonia. Inflammatory markers including CRP and PCT are pending. We did discuss treatment options for supportive care in regards to proning and self rotation. The patient wishes to be a DNR and DNI. Principal Diagnosis Severe acute hypoxic respiratory failure 2nd to COVID-19 pneumonia Discharge Exam Gen: NAD, a/o x 3 Mouth: MMM, no thrush or other lesions Neck: no JVD Heart: RRR, s1 s2, no murmur Lungs: minimal rales b/l bases, no increased work of breathing Abd: soft, NT, ND, BS+, no HSM Ext: no edema, pulses 2+ b/l Psych: a/o x 3, restricted affect Discharge Data Allergies Allergy/AdvReac Type Severity Reaction Status Date / Time phenytoin [From Dilantin] Allergy Unknown Verified 03/24/21 14:38 Consultations pharmacy for glycemic management diabetes education PT, OT Procedures Performed Chest X-Ray 03/24/21 13:07 XR chest 1V portable HISTORY: Atypical Chest Pain COMPARISON: None. FINDINGS: Patchy bilateral airspace opacities within the mid to lower lung zones consistent with a viral pneumonia. No pneumothorax. No pleural effusions. The heart is normal in size. IMPRESSION: Patchy bilateral airspace opacities consistent with a viral pneumonia. ACT 112: Negative or not required by law. Electronically signed by: Nickolas Padilla M.D. 03/24/2021 3:[address] 03/24/21 13:[address] DOSE: 537.48 mGy.cm HISTORY: dizzy TECHNIQUE: Multiaxial CT images of the head were performed without the use of intravenous contrast. Automated exposure control was utilized for this study. A dose lowering technique was utilized adhering to the principles of ALARA. Comparison: None. Findings: Small fluid levels within the maxillary sinuses. The mastoid air cells are clear. The calvarium and skull base are intact. The ventricles and sulci are within normal limits. There is no mass, hematoma, midline shift, or acute infarct. Impression: No acute intracranial abnormality. Mild acute maxillary sinusitis. ACT 112: Negative or not required by law. Electronically signed by: Nikcolas Padilla M.D. 03/24/2021 2:44 PM Chest X-Ray 03/28/21 07:51 XR chest 1V portable CLINICAL HISTORY: COVID follow up COMPARISON STUDY: Chest radiograph March 24, 2021. FINDINGS: Lung volumes are normal. Bilateral airspace opacities are again noted. Left upper lobe airspace opacity has slightly progressed. There is no pneumothorax or pleural effusion. Cardiac size is normal. Mediastinal contours are normal. There is no evidence for pulmonary edema. IMPRESSION: Moderate bilateral airspace opacities consistent with viral pneumonia. Slight progression since prior exam. ACT 112: Negative or not required by law. Electronically signed by: Teto Chandra M.D. 03/28/2021 10:02 AM Ordered Studies Echocardiogram (limited): * EF 55-60% * normal RV function Diabetes Follow up Diabetes Follow-up Needed for HgbA1c >9% Hospital Course (1) Acute respiratory failure with hypoxia: 2nd to severe COVID-19 pneumonia +/- bacterial superinfection at time of admission. Was treated with a 10-day course of dexamethasone, 5-day course of Remdesivir, and 5-day course of Azithromycin. Peak O2 requirement - HFNC, 40 L. She used BIPAP at HS. Oxygen was weaned over the course of her stay. 2-step ambulatory O2 test showed the following - needs 2 L NC O2 at rest; 4 L with activity. Will refer to [facility] pulmonary post-discharge to follow her recovery from COVID. (2) Pneumonia due to COVID-19 virus: Severe disease. S/p dexamethasone, Remdesivir, antibiotics, high-flow Nasal Cannula, and pulmonary toilet. Post-discharge will use Xarelto 10mg daily for 30 days to decrease her chances of VTE. Received lovenox subcutaneous while hospitalized. Plan to set up with pulmonary as outpatient given severity of illness and NC O2 requirement at discharge. Course was complicated by orthostatic hypotension - see below. (3) Orthostatic hypotension: Late in the stay, once the patient was more ambulatory, she complained of significant dizziness/lightheadedness. Orthostatic BPs were checked and showed a large drop of 50 points systolic along with a rapid rise in HR from 60 to 120 with simply standing. BPs improved following NS bolus and institution of midodrine 2.5mg TID. However, she continued with rapid rise in her heart rate with standing. The above may represent dysautonomia/autonomic insufficiency from her COVID-19 illness which is a well-documented issue in the literature. She ultimately may need low-dose beta juani but defer for now. Of note - troponins were negative during the stay arguing against myocarditis. Further, limited echocardiogram showed preserved LV function. Recommendations at discharge - * midodrine 2.5mg TID with meals * compression stockings * good hydration * [facility] cardiology follow-up Doubt adrenal insufficiency as she did not have these symptoms prior to getting COVID-19. Further, checking random cortisol would be unhelpful given 10+ days of steroid use during the hospital stay. (4) DIONE (acute kidney injury): Resolved. Peak creatinine 1.7. Discharge creatinine 1.1. (5) HLD (hyperlipidemia): Cont statin. Most recent ast/alt wnl. (6) Diabetes mellitus type 2, uncontrolled: Hba1c near 10%. Uncontrolled this admission 2nd to severity of illness as well as steroid use. Pharmacy provided glycemic assistance while hospitalized and BSGs did improve with their recommendations. At discharge recommended the following - * resumption of metformin 1000mg BID * discontinuation of glimepiride * basaglar insulin 15 units qpm (7) Seizure disorder: Depakote level therapeutic (84; normal 50-100). AST/ALT wnl. No seizures while hospitalized. (8) Grieving: Patient had severe sadness during the hospitalization due to the recent loss of her daughter. Supportive care given to the patient while here. (9) Microcytosis: recommend check of Fe studies as outpatient at time of hospital f/u (10) DVT prophylaxis: Lovenox 40mg BID employed during the stay. Due to increased risk of VTE post-discharge I recommended Xarelto 10mg once daily for 30 days for VTE prophylaxis. Total Time Total Time Spent Total Time Spent (In Minutes): 60 Discharge Plan Discharge Items Patient Disposition: Home - Home Health Services Reason For Visit: COVID-19 PNEUMONIA Discharge Diagnosis: 1. severe COVID-19 pneumonia - slowly resolving 2. orthostatic hypotension - drop in blood pressure when you stand - likely due to COVID-19 infection 3. rapid pulse when you stand - also likely due to COVID-19 infection 4. uncontrolled diabetes Activity: As commented below Activity Comment: no strenuous activities; gradually increase activity level over time Non-emergency contact: Primary Care Provider, Lead Principal Technical Architect and Manager Primary Call non-emergency contact if: you have any medication questions, your symptoms worsen and you have a fever Follow-up/Referrals: [facility] Cardiology [Provider Group] (recent severe COVID-19 infection/pneumonia; orthostatic hypotension/dysautonomia; first available) [facility] Pulmonology [Provider Group] (severe COVID-19 pneumonia, oxygen-dependent at discharge; first available appointment ) PCP,NO [Primary Care Provider] - (see your family doctor in 1 week) Diet: Carb Consistent or DM2 Addtl Attending Provider Instructions: Mrs Adams, Zane were admitted to the hospital at [facility] for COVID-19 infection which led to severe pneumonia. You required a large amount of oxygen early on during your stay and this was gradually weaned down over time. You made nice, steady improvement with your breathing. At time of discharge you will need to continue on oxygen at home as follows - * 2 liters via nasal cannula at rest and with sleep * 4 liters via nasal cannula when you walk/ambulate, especially when you leave your home During your stay we discovered that when you stand up your blood pressure falls and your heart rate goes fast. This is called orthostatic hypotension / autonomic insufficiency. It is now known that COVID-19 infection can cause this problem. To help with this issue please - * take midodrine 2.5mg three times a day with meals * wear compression stockings/support hose * use caution when going from a seated position to standing position * follow-up with [facility] for this problem Of note - your overall heart function/pumping ability of the heart was normal. For your diabetes please do the following - * stop your glimepiride * continue your metformin twice daily * START basaglar long-acting insulin - take 15 units once daily at bedtime, fi rst dose tonight * check your blood sugars, at minimum, twice daily (every morning, and at least one other time during the day) COVID-19 infection can increase the risk of blood clots in the legs and lungs, especially in individuals who had severe disease. To decrease the risk of a blood clot while recovering at home please take the following - * Xarelto 10mg once daily for 35 days * start this TOMORROW, 04/04/21 Xarelto is a blood thinner. This medication can cause bleeding as a side effect (rectal bleeding, heavy nosebleeding, etc). Additional blood thinner information - * You should take your medication exactly as directed. * Never skip a dose. * Never take a double dose. If you miss a dose, take it as soon as you remember. Call your Primary Care doctor if you experience any of the following: * Swelling or Pain in your leg * Sudden, continuous pain deep in a muscle * Pain that worsens when you are active or when you stand still for a long time * Chest Pain * Sudden Shortness of Breath * Rapid or pounding heart beat * Fainting * Dizziness * Cough with blood or bloody sputum * Sweating more than normal * Bruises * Heavy or uncontrolled bleeding * Blood in your urine, stool or vomit * Black or tarry stools * Heavy nose bleeding Other recommendations - 1. for cough - may use [id number] mucinex or delsym as needed. 2. continue your incentive spirometer at home for another week or so as you recover. 3. your recovery is going to take several weeks or longer. Plan to not be working during the next few weeks or longer. You may need to nap more frequently, take breaks, etc during your recovery. Listen to your body; try not to over-exert at home. 4. continue to prone (lay on your belly) while resting for a few more days as you recover at home. 5. you are likely NOT contagious to others at this time as you are about 20 days into your illness. You do not need to isolate from others. When you leave your home, however, please wear a mask at all times. 6. please obtain a flu shot this fall. 7. please strongly consider the COVID vaccine in about 3 months. 8. purchase a pulse oximeter from the drug store and monitor your oxygen levels on your finger a couple of times each day. Your readings should be 90% or higher on most checks (with the oxygen on in your nose). It was our pleasure caring for you at [facility] and we are so glad that you are recovering and beginning to feel better. Please know that the entire care team will be thinking of you and praying for you, and your family, during this difficult time with the recent loss of your daughter. Continue to feel better, -Dr Clarke Pending Studies at Discharge: No Stand-Alone Forms: My [facility], Smoking Cessation Medications and DC Order Prescriptions: New (DME) Oxygen Home Liters Per Minute See Rx Instructions .ROUTE .MEDSUPPLY Qty: 1 RF: 0 midodrine 2.5 mg Tablet 2.5 mg PO TID@0800,1200,1700 Qty: 90 RF: 1 Xarelto 10 mg tablet 10 mg PO DAILY 35 Days Qty: 35 RF: 0 Basaglar KwikPen U-100 Insulin 100 unit/mL (3 mL) insulin pen 15 unit subcut PM Qty: 15 RF: 1 (DME) pen needle, diabetic [Pen Needle] 31 gauge x 5/16" needle See Rx Instructions .Route Qty: 100 RF: 2 Continued valproic acid 250 mg capsule 500 mg PO BID RF: 0 diazepam 2 mg tablet 2 mg PO QID PRN (Reason: Muscle Spasm) RF: 0 simvastatin 20 mg tablet 20 mg PO HS RF: 0 metformin 1,000 mg tablet 1,000 mg PO BID RF: 0 Discontinued glimepiride 1 mg tablet 1 mg PO DAILY RF: 0 Discharge Orders: Discharge Order (Routine); Ordered 04/03/21 Ordered By: Leonard Nichols/Other Patient Handouts: 2019-nCoV, COVID-19 Home Care, Proning COVID-19 Admission Data Admit Date/Time: 03/24/21 16:03 Attending Provider: Leonard Clarke Admit Provider: Ruth Coto Primary Care Provider: PCP,NO Other Providers: Jared Garcia Other Interventions: Discharge Summary Assessment (RN) Last Done: 04/03/21 16:34 Coding Level of Care Code D/C DAY MANAGEMENT >30 MINS Diagnoses Orthostatic hypotension I95.1 Acute respiratory failure with hypoxia J96.01 Pneumonia due to COVID-19 virus U07.1; J12.82 DIONE (acute kidney injury) N17.9 HLD (hyperlipidemia) E78.5 Diabetes mellitus type 2, uncontrolled E11.65 Seizure disorder G40.909 DVT prophylaxis Z29.9 Grieving F43.21 Microcytosis R71.8
--- NOTE | 2021-04-03 16:11 | XCELERA ---
[id number]
[2021-04-04] MEDS ORDERED: INSULIN ASPART 100 UNITS/ML 3 ML PEN SC SCH (07:30)
== END 2021-04-03 17:06 | disposition home or self-care (01) | DRG 177 ==
LOC: ED 12:33 → 2E 16:03 → SUATTDRO 16:03 → 2E 18:33